=== PATIENT | female | born 1955 | race African-American/Black ===

== ENCOUNTER 2023-08-05 00:17 | Emergency (ER) | payer OTHER, SELFPAY ==
[2023-08-05 00:22] VITALS: BP 172/97; PULSE 95; RESP 18; TEMP 37.1; O2SAT 99; BMI 30.7
[2023-08-05 00:52] LABS: MANUAL DIFF FLAG NO
[2023-08-05 00:53] LABS: Basophils Percent Auto 0.4 % (0-2); Eosinophils Absolute Auto 0.2 X10*3/uL (0.0-0.4); Eosinophils Percent Auto 2.6 % (0-4); Hematocrit 36.3 % (37.0-47.0); Hemoglobin 12.4 g/dl (12.0-16.0); Imm Gran Abs Auto 0.02 X10*3/uL (0.00-0.03); Imm Gran Pct Auto 0.3 % (0.0-0.4); Lymphocytes Percent Auto 29.6 % (20-40); Mean Corpuscular HGB Conc 34.2 g/dl (31.0-35.0); Mean Platelet Volume 9.3 fL (9.4-12.3); Monocytes Absolute Auto 0.4 X10*3/uL (0.1-1.2); Monocytes Percent Auto 5.4 % (2-11); Neutrophils Absolute Auto 4.2 x10*3/uL (2.0-8.3); Neutrophils Percent Auto 61.7 % (45-73); Platelet Count 290 X10*3/uL (160-400); Red Blood Count 4.27 X10*6/uL (4.20-5.50); White Blood Count 6.8 X10*3/uL (4.8-10.8)
[2023-08-05 01:05] LABS: Alanine Aminotransferase 25 U/L (0-31); Albumin Level 4.7 g/dL (3.5-5.0); Alkaline Phosphatase 67 U/L (39-117); Anion Gap 15 (12-20); Aspartate Amino Transferase 26 U/L (5-31); Bilirubin Total 0.3 mg/dL (0.0-1.0); Blood Urea Nitrogen 10 mg/dL (9-16); Calcium 9.9 mg/dL (8.4-10.2); Carbon Dioxide 25 mmol/L (22-29); Chloride 106 mmol/L (96-108); Creatinine Clr Calc Pharmacy 56.4; Estimated Glomerular Filt Rate 53; Glucose Random 156 mg/dL (60-115); Potassium 4.3 mmol/L (3.3-5.1); Sodium 142 mmol/L (135-145); Total Protein 7.8 g/dL (6.5-8.0)
[2023-08-05 01:12] LABS: Troponin-I High Sensitivity < 2.7 ng/L (<3.5-17.0)
[2023-08-05 01:31] LABS: Influenza A PCR NEGATIVE (Negative); Influenza B PCR NEGATIVE (Negative); Resp Syncy Virus RNA Qual PCR NEGATIVE (Negative); SARS COV2 PCR INHOUSE NEGATIVE (Negative)
--- NOTE | 2023-08-05 01:31 | ED.CHESTPAIN ---
HPI - Chest Pain General Chief Complaint: Chest Pain Stated Complaint: Chest tightness/Sob/Back pain Time Seen by Provider: 08/05/23 01:20 Source: patient and family (Son) Mode of arrival: ambulatory Limitations: no limitations History of Present Illness HPI narrative: 68-year-old female came in for evaluation of chest tightness and upper back pain for 5 days, pain is on and off associated with dyspnea, no chest trauma, no clear aggravating or relieving factor of the chest pain, no fever, no chills, no coughing, no recent travel, no lower extremities swelling or tenderness. Related Data Allergies Allergy/AdvReac Type Severity Reaction Status Date / Time codeine Allergy Itching Verified 08/05/23 00:39 morphine Allergy Itching Verified 08/05/23 00:39 trazodone Allergy Hallucinati Verified 08/05/23 00:39 ons Review of Systems Review of Systems: All other systems are reviewed and are negative Constitutional: Reports as per HPI and Reports no additional constitutional complaints Eyes: Reports as per HPI and Reports no additional eye complaints Reports system reviewed and no additional complaints, except as documented Cardiovascular: Reports as per HPI and Reports no additional cardiovascular complaints Respiratory: Reports as per HPI and Reports no additional respiratory complaints Gastrointestinal: Reports as per HPI and Reports no additional gastrointestinal complaints Genitourinary: Reports no additional female genitourinary complaints Musculoskeletal: Reports no additional musculoskeletal complaints Skin/Breast: Reports system reviewed and no additional complaints, except as docu Psychiatric: Reports no additional psychiatric complaints Endocrine: Reports no additional endocrine complaints Hematologic/Lymphatic: Reports no additional hematologic/lymphatic complaints Allergic/Immunologic: Reports no additional allergic/immunologic complaints Reports system reviewed and no additional complaints, except as documented and Reports Abnormal speech present [facility] Past Medical History [facility] Narrative: Asthma. Hypertension. Diabetes. Onset Date is defined in the Problem List Problems that require an onset date and time if occurred within 24 hrs of arrival to the ED Aortic Dissection and Rupture; Neurologic impairment; Cardiopulmonary Arrest; Endotracheal Intubation; Insertion or Replacement of Mechanical Circulatory Assist Device Social History Social History Advance Directives: No Advance Directives Information Provided: Yes Physical Exam Vital Signs: Vital Signs: Last Vital Signs Temp 98.7 F 08/05/23 00:22 Pulse 95 08/05/23 00:22 Resp 18 08/05/23 00:22 BP 172/97 H 08/05/23 00:22 Pulse Ox 99 08/05/23 00:22 O2 Del Method Room Air 08/05/23 00:22 BMI result Body Mass Index 30.7 Vital signs have been reviewed and appear to be correct. Blood pressure elevated. Heart rate normal. Respiratory rate normal. Temperature normal. Oxygen saturation normal. Appearance: Alert. Oriented X3. No acute distress. Head: Normal external exam. Normocephalic. Atraumatic. No Mcnally signs noted. No raccoon eyes noted Eyes: PERRLA. EOMI. Conjunctiva and sclera normal. Eyelids normal. ENT: TM's Normal. Pharynx normal. Uvula midline. Moist mucous membranes. No trismus noted. No drooling noted. No muffled voice noted. Neck: Normal inspection. Neck supple. FROM. No adenopathy. Thyroid Normal. No meningeal signs. No neck mass noted. CVS: Normal heart rate and rhythm. Heart sound normal. No murmurs noted. Pulses normal throughout. Respiratory: No respiratory distress. Painless inspiration. Breath sounds normal. No wheezes/rales/rhonchi noted. Reproducible tenderness over the sternum, no step-off, no deformity. No accessory muscle usage noted or decreased air movement noted. Abdomen: Soft and nontender. Bowel sounds normal in all 4 quadrants. No distention noted. No organomegaly noted. No visible injury noted. Back: No CVA tenderness. Full range of motion noted. Skin: Skin warm and dry. Normal skin color. Normal skin turgor. No rashes/lesions/lacerations noted. Extremities: No lower extremity edema. Extremities exhibit normal range of motion. Extremities nontender. Neuro: Oriented X 3. Cranial nerve exam: II-XII are grossly intact No motor deficit. No sensory deficit. Reflexes normal. Course Reevaluation(s) Reevaluation #1: Presented with 5 days history of chest pain and shortness of breath will check repeat troponin and D-dimer, signed out to Dr. Albarran. Time: 01:43 Medical Decision Making Differential Diagnosis Differential Diagnoses: The differential diagnosis associated with the presentation includes (Pneumonia, pneumothorax, pulmonary embolism, ACS, costochondritis, electrolyte abnormality, severe anemia.) Admission/Observation Consideration of admission/observation: Escalation of care including admission/observation considered Lab Data MDM Lab Attestation statement: I reviewed the patient's lab results. 08/05/23 00:48 08/05/23 00:48 Labs: Lab Results 08/05/23 08/05/23 Range/Units 00:48 00:58 WBC 6.8 (4.8-10.8) X10*3/uL RBC 4.27 (4.20-5.50) X10*6/uL Hgb 12.4 (12.0-16.0) g/dl Hct 36.3 L (37.0-47.0) % MCV 85.0 (80.0-98.0) fL MCH 29.0 (27.0-33.0) pg MCHC 34.2 (31.0-35.0) g/dl RDW 13.0 (11.0-16.0) % Plt Count 290 (160-400) X10*3/uL MPV 9.3 L (9.4-12.3) fL Immature Gran % (Auto) 0.3 (0.0-0.4) % Neut % (Auto) 61.7 (45-73) % Lymph % (Auto) 29.6 (20-40) % [place] % (Auto) 5.4 (2-11) % Eos % (Auto) 2.6 (0-4) % Baso % (Auto) 0.4 (0-2) % Lymph # (Auto) 2.0 (1.2-4.9) X10*3/uL [place] # (Auto) 0.4 (0.1-1.2) X10*3/uL Eos # (Auto) 0.2 (0.0-0.4) X10*3/uL Baso # (Auto) 0.0 (0.0-0.2) X10*3/uL Abs Immat Gran (auto) 0.02 (0.00-0.03) X10*3/uL Absolute Neuts (auto) 4.2 (2.0-8.3) x10*3/uL Absolute Nucleated RBC 0.000 (0.0-0.012) X10*3/uL Nucleated RBC % (auto) 0.0 (0.0-0.2) /100WBC Sodium 142 (135-145) mmol/L Potassium 4.3 (3.3-5.1) mmol/L Chloride 106 (96-108) mmol/L Carbon Dioxide 25 (22-29) mmol/L Anion Gap 15 (12-20) BUN 10 (9-16) mg/dL Creatinine 1.04 (0.5-1.4) mg/dL Estim Creat Clear Calc 56.4 Estimated GFR 53 Random Glucose 156 H (60-115) mg/dL Calcium 9.9 (8.4-10.2) mg/dL Total Bilirubin 0.3 (0.0-1.0) mg/dL AST 26 (5-31) U/L ALT 25 (0-31) U/L Alkaline Phosphatase 67 (39-117) U/L Troponin I High Sens < 2.7 (<3.5-17.0) ng/L Total Protein 7.8 (6.5-8.0) g/dL Albumin 4.7 (3.5-5.0) g/dL Urine Color Yellow Urine Appearance Clear Urine pH 6.5 (5.0-9.0) Ur Specific [place] <= 1.005 (1.005-1.025) Urine Protein Negative (Neg-Trace) mg/dL Urine Glucose (UA) Negative (Negative) mg/dL Urine Ketones Negative (Negative) mg/dL Urine Blood Negative (Negative) Urine Nitrite Negative (Negative) Ur Leukocyte Esterase Negative (Negative) Urine RBC 0-2 (0-2) /HPF Urine WBC 0-5 (0-5) /HPF Ur Squamous Epith Cells 0-2 (0-2) /HPF Urine Bacteria None Seen (None Seen) Hyaline Casts 0-2 (0-2) /LPF Influenza Type A (PCR) NEGATIVE (Negative) Influenza Type B (PCR) NEGATIVE (Negative) RSV RNA Qual (PCR) NEGATIVE (Negative) SARS-CoV-2 RNA (RT-PCR) NEGATIVE (Negative) Independent Interpretation I performed an independent interpretation of an: EKG (Normal sinus rhythm at 95 beats per minute, normal axis deviation, normal intervals, no ST-T changes.) Discharge Plan Discharge Clinical Impression: Atypical chest pain Patient Disposition: Still a Patient Instructions: Chest Pain (ED)
[2023-08-05 02:33] LABS: D Dimer High Sensitivity < 150 NG/ML; Troponin-I High Sensitivity < 2.7 ng/L (<3.5-17.0)
== END 2023-08-05 03:24 | disposition home or self-care (01) ==
PROVIDERS: Emergency Provider Emergency Medicine; PCP Internal Medicine
DX: R07.89 Other chest pain (principal); R06.02 Shortness of breath; E11.9 Type 2 diabetes mellitus without complications; I10 Essential (primary) hypertension; Z20.822 Contact with and (suspected) exposure to COVID-19; Z20.828 Contact with and (suspected) exposure to other viral communicable diseases
CPT/HCPCS: 0241U; 36415; 71046; 80053; 81001; 84484; 85025; 85379; 93005; 99283; 99284

== ENCOUNTER → 2023-08-05 00:27 | Outpatient (BNV) | payer OTHER, SELFPAY | PROVIDERS: Emergency Provider Emergency Medicine; PCP Internal Medicine; Visit Provider Internal Medicine Cardiovascular Disease | DX: R07.9 Chest pain, unspecified (principal) | CPT/HCPCS: 93010 ==

== ENCOUNTER 2023-12-21 23:02 | Inpatient (IN) | payer MEDICARE, OTHER, SELFPAY ==
--- NOTE | ~2023-12-21 | US_ITS ---
EXAMINATION: US RETROPERITONEAL LIMITED (RENAL ONLY) CLINICAL INFORMATION: Pyelonephritis, question renal abscess. COMPARISON: CT abdomen and pelvis without contrast 12/22/2023. TECHNIQUE: Real-time imaging of the kidneys. FINDINGS: RIGHT KIDNEY: 12.5 x 5.1 x 6.7 cm (SAG x AP x TRV). The kidney is normal in size, contour, and echogenicity. Renal cortical thickness is normal. No calculi or focal parenchymal lesions. No hydronephrosis. LEFT KIDNEY: 13.0 x 6.4 x 5.4 cm (SAG x AP x TRV). The kidney is normal in size, contour, and echogenicity. Renal cortical thickness is normal. No calculi or focal parenchymal lesions. No hydronephrosis. Additional findings: The liver is enlarged and demonstrates increased echogenicity consistent with hepatic steatosis similar to the prior CT. US/US renal BI IMPRESSION: 1. Normal-appearing kidneys. 2. Enlarged fatty liver.
--- NOTE | ~2023-12-21 | CT_ITS ---
EXAMINATION: CT ABDOMEN AND PELVIS WITHOUT CONTRAST CLINICAL INFORMATION: Left flank pain. COMPARISON: None available. TECHNIQUE: Multidetector volumetric imaging was performed from the superior aspect of the liver through the pubic symphysis. Sagittal and coronal reformatted images were obtained on the technologist's workstation. This CT examination was performed using dose optimization techniques as appropriate, variously including the following: *Automated exposure control *Adjustment of mA and/or kV according to patient size (this includes techniques or standardized protocols for targeted exams where dose is matched to indication/reason for exam; i.e. extremities or head) *Use of iterative reconstruction technique DLP: 617 mGy-cm FINDINGS: LUNG BASES: There is scarring at the right lung base. LIVER, GALLBLADDER, AND BILIARY TREE: The liver is of mild diminished attenuation. No focal liver lesions are seen. There is no intrahepatic biliary duct dilatation. The gallbladder is unremarkable with no evidence of radiopaque gallstones, gallbladder wall thickening, or obvious pericholecystic inflammatory changes. PANCREAS: Unremarkable. SPLEEN: Unremarkable. ADRENAL GLANDS: Unremarkable. KIDNEYS AND URETERS: The kidneys are normal in size, shape, and attenuation. No hydronephrosis, hydroureter, or calculi seen. No perinephric stranding. BLADDER: Unremarkable. GASTROINTESTINAL TRACT: There are diverticula of the descending and sigmoid colon without diverticulitis. The appendix is visualized and is within normal limits. ABDOMINAL WALL: No significant hernia is appreciated. LYMPH NODES: Normal. VASCULAR: Unremarkable. PELVIC VISCERA: Unremarkable. OSSEOUS STRUCTURES: There is diffuse thoracolumbar disc degenerative change with grade [address]/CT abdomen pelvis wo IV con IMPRESSION: 1. No evidence of nephrolithiasis or hydronephrosis. 2. Diverticulosis without diverticulitis. 3. Degenerative changes of the thoracolumbar spine. Fleischner guidelines were followed.
--- NOTE | ~2023-12-21 | XR_ITS ---
EXAMINATION: XR CHEST CLINICAL INFORMATION: Hypoxia and leukocytosis COMPARISON: August 2023 TECHNIQUE: Frontal view of the chest was obtained. FINDINGS: Opacity left upper lobe probably a summation of bone and vascular shadows, cannot rule out underlying infiltrates or lung nodule. Lungs otherwise are clear. Costophrenic angles are sharp. There is no pneumothorax. XR/XR chest 1V IMPRESSION: Opacity left upper lobe probably a summation of bone and vascular shadows, cannot rule out underlying infiltrates or lung nodule. Consider correlation with follow-up PA and lateral views.
--- NOTE | ~2023-12-21 | US_ITS ---
EXAMINATION: US TRIPLEX UPPER EXTREMITY, LEFT CLINICAL INFORMATION: Swelling evaluate for DVT COMPARISON: None available. TECHNIQUE: Color-flow triplex imaging with spectral analysis and compression Doppler was performed on the left upper extremity. FINDINGS: The left internal jugular, subclavian, and axillary veins are patent and free of thrombus. The imaged segment of the left brachiocephalic vein is patent. Spectral doppler waveforms are normal. The brachial, basilic, cephalic, and radial veins are patient and compressible. Ulnar veins not well evaluated. US/US venous duplex UE LT IMPRESSION: 1. No evidence of deep venous thrombosis involving the left upper extremity. 2. Ulnar veins not well evaluated.
--- NOTE | ~2023-12-21 | XR_ITS ---
EXAMINATION: XR HAND/WRIST, LEFT CLINICAL INFORMATION: Pain swelling COMPARISON: None TECHNIQUE: PA, lateral, and oblique views of the left hand and wrist. FINDINGS: Severe osteoarthritis of the first carpometacarpal joint manifested by marked joint space narrowing prominent marginal osteophytes subchondral cystic change and sclerosis. Mild osteoarthritis of the triscaphoid joint with marginal osteophytes. There is chondrocalcinosis at the ulnocarpal articulation. There is minimal cystic change at the base of the ulnar styloid. XR/XR hand wrist LT IMPRESSION: 1. Osteoarthritis of the left wrist 2. Chondrocalcinosis.
--- NOTE | ~2023-12-21 | US_ITS ---
EXAMINATION: US ABDOMEN LIMITED (GALLBLADDER) CLINICAL INFORMATION: Check gallbladder, question infection. COMPARISON: CT abdomen and pelvis 12/27/2023. TECHNIQUE: Real-time imaging of the right upper quadrant abdominal viscera. FINDINGS: GALLBLADDER: There is echogenic bile. The gallbladder is physiologically distended without evidence of stones, polyps, wall thickening or pericholecystic fluid. US/US abdomen limited IMPRESSION: There is layering echogenic bile. No cholelithiasis or cholecystitis is seen.
--- NOTE | ~2023-12-21 | NM_ITS ---
EXAMINATION: NM RADIONUCLIDE WHITE BLOOD CELL STUDY CLINICAL INFORMATION: Elevated ESR and WBC count. Unknown source of infection. COMPARISON: Chest radiograph done on 12/27/[address] of the abdomen and pelvis also done on 12/27/2023. TECHNIQUE: Multiple gamma scintillation camera images of the whole body were performed 2 hours following the intravenous administration of 15 mCi Tc-99m Ceretec labeled autologous white cells. Additional images of the chest and abdomen were obtained to demonstrate physiological white blood cell tagging. FINDINGS: Physiologic radiotracer distribution is present throughout the entire body. Slightly lobulated liver. Note is however made of visualization of the gallbladder which could be physiologic. Clinical correlation and follow-up ultrasound with appropriate may be considered for further clarification. NM/NM white blood scan IMPRESSION: No definite source of infection. Visualization of the gallbladder could be physiologic. Clinical correlation and follow-up targeted gallbladder ultrasound may be considered for further clarification if appropriate.
--- NOTE | ~2023-12-21 | CT_ITS ---
EXAMINATION: CT ANGIOGRAM OF THE CHEST WITH AND WITHOUT CONTRAST (CT PULMONARY ANGIOGRAM FOR PE) CLINICAL INFORMATION: Reason for Exam tachycardia, elevated D-dimer(835) COMPARISON: Chest x-ray 12/27/2023 TECHNIQUE: Prior to contrast administration, noncontrast localization images were obtained. Subsequently, multidetector volumetric imaging was performed from the thoracic inlet to below the diaphragms following the administration of 65 mL Omnipaque 350 intravenous contrast. No contrast reaction reported Sagittal, coronal, and MIP oblique sagittal reformatted images were obtained on the CT workstation, uploaded to PACS, and reviewed. This CT examination was performed using dose optimization techniques as appropriate, variously including the following: *Automated exposure control *Adjustment of mA and/or kV according to patient size (this includes techniques or standardized protocols for targeted exams where dose is matched to indication/reason for exam; i.e. extremities or head) *Use of iterative reconstruction technique Total exam dose-length product 522 mGy-cm FINDINGS: QUALITY OF STUDY/CONTRAST BOLUS: Satisfactory. PULMONARY ARTERIES: No filling defects are seen in the main, lobar, or segmental pulmonary arteries to suggest the presence of pulmonary emboli. THORACIC AORTA: No aneurysm or dissection. LUNG: Limited detailed evaluation in some regions due to motion artifact. There is faint groundglass opacity in the right middle lobe, predominantly medially, suspicious for an infectious/inflammatory etiology. PLEURA: No pleural effusion or pneumothorax. MEDIASTINUM: Thyroid gland appears enlarged. Hypoattenuating 0.7 cm right thyroid lobe nodule noted. There are subcentimeter mediastinal lymph nodes within the range of normal variation. Cardiac size is within normal limits; no pericardial effusion. No evidence of septal bowing or right heart strain. CORONARY ARTERY CALCIFICATION: None visualized on this study. CHEST WALL/AXILLA: No axillary or internal mammary lymphadenopathy. OSSEOUS STRUCTURES: Multilevel degenerative changes in the spine. UPPER ABDOMEN: Unremarkable. No reflux of contrast into the hepatic veins to suggest elevated right heart pressures. CT/CT angio chest PE protocol IMPRESSION: 1. No pulmonary embolus identified. 2. Faint groundglass opacity in the right middle lobe, suspicious for an infectious/inflammatory etiology. 3. Enlarged thyroid gland with 0.7 cm right thyroid lobe nodule. Based on the recommendations of the ACR Incidental Thyroid Findings Committee (JACR 2014; 12(2):143-50), no imaging followup is recommended for incidental thyroid nodules with largest axial dimension less than 1.5 cm in patients greater than 35 years of age in the absence of high risk imaging features, symptomatic thyroid disease, or increased risk for thyroid cancer. VTE: negative.
--- NOTE | ~2023-12-21 | CT_ITS ---
EXAMINATION: CT HEAD WITHOUT CONTRAST CLINICAL INFORMATION: Headaches. COMPARISON: None. TECHNIQUE: Contiguous axial imaging was performed from the skullbase to vertex without intravenous administration of contrast. This CT examination was performed using dose optimization techniques as appropriate, variously including the following: *Automated exposure control *Adjustment of mA and/or kV according to patient size (this includes techniques or standardized protocols for targeted exams where dose is matched to indication/reason for exam; i.e. extremities or head) *Use of iterative reconstruction technique DLP: 753 mGy-cm. FINDINGS: There is no evidence of acute intracranial hemorrhage or territorial infarction. No abnormal mass effect or midline shift is seen. No extra-axial fluid collections are identified. Mild generalized brain parenchymal volume loss and ex vacuo prominence of the ventricles noted. There is an incidental 6.7 x 5.8 x 6.8 mm low-attenuation focus in the right lateral aspect of the anterior pituitary lobe. The pituitary stalk is slightly deviated to the left of midline as well. Mild chronic white matter microangiopathic changes are visible. There is a 2 cm low-attenuation area in the left frontal christianson radiata nonspecific. The osseous structures and soft tissues are normal. The mastoid air cells and visualized portions of the paranasal sinuses are well aerated. CT/CT head/brain wo IV con IMPRESSION: No acute intracranial hemorrhage or territorial infarction. Patchy areas of low-density change in the cerebral white matter which may be due to chronic microangiopathy. The possibility of a focal acute ischemic process cannot be ruled out on the basis of this study. Incidental 6.7 x 6.8 mm low-density lesion in the right lateral aspect of the anterior pituitary lobe which may represent a microadenoma.
--- NOTE | ~2023-12-21 | CT_ITS ---
EXAMINATION: CT ABDOMEN AND PELVIS WITH CONTRAST CLINICAL INFORMATION: Urinary tract infection worsening white blood cell count tachycardia. COMPARISON: CT abdomen and pelvis 12/22/2023 TECHNIQUE: Multidetector volumetric images were obtained from the superior aspect of the liver through the pubic symphysis following administration 85 mL of Omnipaque 350 intravenous contrast. Sagittal and coronal reformatted images were obtained on the technologist's workstation. Oral contrast: No This CT examination was performed using dose optimization techniques as appropriate, variously including the following: *Automated exposure control *Adjustment of mA and/or kV according to patient size (this includes techniques or standardized protocols for targeted exams where dose is matched to indication/reason for exam; i.e. extremities or head) *Use of iterative reconstruction technique DLP: 699 mGy-cm FINDINGS: LUNG BASES: The visualized lung bases are unremarkable. LIVER, GALLBLADDER, AND BILIARY TREE: The liver is normal in size, shape, and attenuation. No focal hepatic lesion or biliary ductal dilatation is present. The gallbladder is unremarkable with no evidence of radiopaque gallstones, gallbladder wall thickening, or obvious pericholecystic inflammatory changes. PANCREAS: Unremarkable. SPLEEN: Unremarkable. ADRENAL GLANDS: Unremarkable. KIDNEYS AND URETERS: 3 simple cysts in the left kidney largest measuring 14 mm period no follow-up necessary. Parenchymal otherwise yohana No hydronephrosis. No hydroureter. No renal calculi BLADDER: Unremarkable. GASTROINTESTINAL TRACT: Small bowel normal. Large bowel scattered diverticula in the sigmoid colon no diverticulitis. Scattered diverticula in the distal The appendix is unremarkable. Stomach normal ABDOMINAL WALL: No significant hernia is appreciated. LYMPH NODES: Normal. VASCULAR: There is calcification of the distal aorta compatible with mild to moderate calcific atherosclerotic disease. PELVIC VISCERA: Unremarkable Uterus not clearly identified. Suspect prior surgery versus age-related change. No masses. OSSEOUS STRUCTURES: Multiple level spondylosis of lumbar sacral spine severe degenerative disc changes at L5-S1 and grade 1 degenerative spondylolisthesis at L3-L4 unchanged. CT/CT abdomen pelvis w IV con IMPRESSION: No acute abnormality. No change compared with 12/22/2023. No urinary tract stone. No definitive CT findings for urinary tract infection Diverticulosis without diverticulitis. Fleischner guidelines were followed.
--- NOTE | ~2023-12-21 | XR_ITS ---
EXAMINATION: XR CHEST CLINICAL INFORMATION: Pneumonia COMPARISON: None available. TECHNIQUE: 2 views of the chest were obtained. FINDINGS: The heart size is normal. There is no evidence of CHF. Some mild bibasilar atelectasis is seen. No gross consolidation, lung masses or pleural effusions are seen. Degenerative changes are present in the spine. XR/XR chest 2V IMPRESSION: Mild bibasilar atelectasis. No evidence of pneumonia.
[2023-12-21 23:18] VITALS: BP 128/79; PULSE 116; RESP 20; TEMP 36.6; O2SAT 98
[2023-12-21 23:31] LABS: MANUAL DIFF FLAG NO
[2023-12-21 23:33] LABS: Basophils Absolute Auto 0.1 X10*3/uL (0.0-0.2); Basophils Percent Auto 0.5 % (0-2); Eosinophils Percent Auto 0.1 % (0-4); Hematocrit 35.4 % (37.0-47.0); Hemoglobin 12.1 g/dl (12.0-16.0); Imm Gran Abs Auto 0.12 X10*3/uL (0.00-0.03); Imm Gran Pct Auto 0.7 % (0.0-0.4); Lymphocytes Absolute Auto 1.1 X10*3/uL (1.2-4.9); Lymphocytes Percent Auto 6.7 % (20-40); Mean Corpuscular HGB Conc 34.2 g/dl (31.0-35.0); Mean Corpuscular Hemoglobin 29.1 pg (27.0-33.0); Mean Corpuscular Volume 85.1 fL (80.0-98.0); Mean Platelet Volume 9.8 fL (9.4-12.3); Monocytes Absolute Auto 1.3 X10*3/uL (0.1-1.2); Monocytes Percent Auto 8.2 % (2-11); Neutrophils Absolute Auto 13.8 x10*3/uL (2.0-8.3); Neutrophils Percent Auto 83.8 % (45-73); Platelet Count 249 X10*3/uL (160-400); Red Blood Count 4.16 X10*6/uL (4.20-5.50); Red Cell Distribution Width 14.1 % (11.0-16.0); White Blood Count 16.4 X10*3/uL (4.8-10.8)
[2023-12-21 23:34] LABS: Appearance Urine Turbid; Color Urine Dark Yellow; Glucose Urine UA Negative (Negative); Leukocyte Esterase Urine Large (3+) (Negative); Nitrite Urine Negative (Negative); PH 5.5 (5.0-9.0); Urine Blood Moderate (2+) (Negative); Urine Ketones Trace mg/dL (Negative); Urine Protein 100 (2+) mg/dL (Neg-Trace)
[2023-12-21 23:49] LABS: Bacteria Urine 4+ (None Seen); Squamous Epithelial Cell Urine >20 /HPF (0-2); WBC Urine >50 /HPF (0-5)
[2023-12-22] VITALS (7 sets, daily range): BP systolic 118–152; BP diastolic 61–87; PULSE 101–130; RESP 16–22; TEMP 36.7–37.5; O2SAT 94–101
--- NOTE | 2023-12-22 00:04 | ED.GENADULT ---
HPI - General Adult General Chief complaint: Abdominal Pain Stated complaint: UTI, Chills, Abdominal Pain Time Seen by Provider: 12/21/23 23:34 Source: patient and family Mode of arrival: ambulatory Limitations: no limitations History of Present Illness HPI narrative: Patient's history of diabetes comes here with dysuria frequency flank pain nausea for last 4 days patient denies any history of kidney stone usually get urinary tract infection once or twice a year but this time patient feels is worse than previous times with increased chills or appetite and nausea no fever but had chills with does have history of substance abuse no IVDA Related Data Previous Rx's ?Medication ?Instructions ?Recorded tramadol 50 mg tablet 50 mg PO Q6H PRN pain #20 tabs 08/05/23 Allergies Allergy/AdvReac Type Severity Reaction Status Date / Time codeine Allergy Itching Verified 12/21/23 23:20 morphine Allergy Itching Verified 12/21/23 23:20 trazodone Allergy Hallucinati Verified 12/21/23 23:20 ons Review of Systems Review of Systems: Yes all other systems are reviewed and are negative [facility] Past Medical History Medical History Mood disorder Hypertension Non-insulin dependent type 2 diabetes mellitus Mixed hyperlipidemia Social History Social History Smoked in Last 30 Days: No Use of substances other than those prescribed or required for medical reasons: No Advance Directives: No Advance Directives Information Provided: Yes Do you have a plan to hurt others: No Plan Physical Exam ED Vital Signs: Vital Signs - 24 hr 12/21/23 23:18 12/22/23 01:33 Temperature 97.8 F Pulse Rate 116 H 101 H Respiratory Rate 20 Blood Pressure 128/79 118/61 Pulse Oximetry 98 101 H Oxygen Delivery Method Room Air Oxygen Flow Rate 98 BMI result Body Mass Index 30.0 Appearance: Alert. Oriented X3. No acute distress. Eyes: No pallor or icterus ENT: Pharynx normal. Oral Mucosa moist Neck: Normal inspection. Neck supple. CVS: Normal heart rate and rhythm. Pulses normal. Respiratory: No respiratory distress. Equal air entry bilateral, no wheezing/rales/rhonchi Abdomen: Soft and mild discomfort left lower no rebound tenderness or guarding Bowel sounds are present, no mass palpable, no CVA tenderness Skin: Skin warm and dry. Normal skin color. Normal skin turgor. Extremities: No lower extremity edema. No calf tenderness Neuro: Oriented X 3. No motor deficit. Medications Administered Generic Name Dose Route Start Last Admin Trade Name Freveronica PRN Reason Stop Dose Admin Enoxaparin Sodium 40 mg 12/22/23 03:00 12/22/23 03:15 Enoxaparin Sodium 40 Mg/0.4 Ml Syringe SUBCUT 40 mg 0300 [facility] Administration Insulin Human Lispro 0 unit 12/22/23 07:30 12/22/23 07:19 Insulin Lispro 100 Unit/Ml 3 Ml Vial SUBCUT 2 unit QIDACHS [facility] Administration Protocol Discontinued Medications Generic Name Dose Route Start Last Admin Trade Name Freq PRN Reason Stop Dose Admin Acetaminophen 975 mg 12/22/23 02:40 12/22/23 02:51 Acetaminophen 325 Mg Tablet PO 12/22/23 02:41 975 mg ONCE ONE Administration Sodium Chloride 1,000 mls @ 999 mls/hr 12/22/23 00:02 12/22/23 01:53 Ns IV 12/22/23 01:02 Infused .Q1H1M ONE Infusion Ceftriaxone Sodium 1 gm/ 50 mls @ 100 mls/hr 12/22/23 00:02 12/22/23 01:54 Sodium Chloride IV 12/22/23 00:31 Infused ONCE ONE Infusion Sodium Chloride 1,000 mls @ 999 mls/hr 12/22/23 01:34 12/22/23 05:02 Ns IV 12/22/23 02:34 Infused .Q1H1M ONE Infusion Lidocaine 1 patch 12/22/23 05:44 12/22/23 05:55 Lidocaine 4 % Patch Adh..Patch TRANSDERMA 12/22/23 05:45 1 patch ONCE ONE Administration Protocol Ondansetron HCl 4 mg 12/22/23 00:02 12/22/23 00:57 Ondansetron Hcl 4 Mg/2 Ml Vial IVPUSH 12/22/23 00:03 4 mg ONCE ONE Administration Zolpidem Tartrate 5 mg 12/22/23 02:40 12/22/23 02:51 Zolpidem Tartrate 5 Mg Tablet PO 12/22/23 02:41 5 mg ONCE ONE Administration Medical Decision Making Medical Decision Making MDM Narrative: Patient's Gram-negative bacteremia etiology not very clear has UTI but not severely septic, admit patient for IV antibiotic pending final culture Differential Diagnosis Differential Diagnoses: The differential diagnosis associated with the presentation includes Admission/Observation Consideration of admission/observation: Escalation of care including admission/observation considered Consult Healthcare Provider Management of the patient was discussed with: Hospitalist Lab Data [facility] Lab Attestation statement: I reviewed the patient's lab results. 12/22/23 04:51 12/22/23 04:51 Labs: Lab Results 12/21/23 12/22/23 Range/Units 23:25 00:49 WBC 16.4 H (4.8-10.8) X10*3/uL RBC 4.16 L (4.20-5.50) X10*6/uL Hgb 12.1 (12.0-16.0) g/dl Hct 35.4 L (37.0-47.0) % MCV 85.1 (80.0-98.0) fL MCH 29.1 (27.0-33.0) pg MCHC 34.2 (31.0-35.0) g/dl RDW 14.1 (11.0-16.0) % Plt Count 249 (160-400) X10*3/uL MPV 9.8 (9.4-12.3) fL Immature Gran % (Auto) 0.7 H (0.0-0.4) % Neut % (Auto) 83.8 H (45-73) % Lymph % (Auto) 6.7 L (20-40) % [place] % (Auto) 8.2 (2-11) % Eos % (Auto) 0.1 (0-4) % Baso % (Auto) 0.5 (0-2) % Lymph # (Auto) 1.1 L (1.2-4.9) X10*3/uL [place] # (Auto) 1.3 H (0.1-1.2) X10*3/uL Eos # (Auto) 0.0 (0.0-0.4) X10*3/uL Baso # (Auto) 0.1 (0.0-0.2) X10*3/uL Abs Immat Gran (auto) 0.12 H (0.00-0.03) X10*3/uL Absolute Neuts (auto) 13.8 H (2.0-8.3) x10*3/uL Absolute Nucleated RBC 0.000 (0.0-0.012) X10*3/uL Nucleated RBC % (auto) 0.0 (0.0-0.2) /100WBC Sodium 136 (135-145) mmol/L Potassium 4.0 (3.3-5.1) mmol/L Chloride 100 (96-108) mmol/L Carbon Dioxide 20 L (22-29) mmol/L Anion Gap 20 (12-20) BUN 36 H (9-16) mg/dL Creatinine 1.88 H (0.5-1.4) mg/dL Estim Creat Clear Calc 30.9 Estimated GFR 27 Random Glucose 256 H (60-115) mg/dL Lactic Acid 1.5 (0.5-2.0) mmol/L Calcium 10.2 (8.4-10.2) mg/dL Total Bilirubin 0.8 (0.0-1.0) mg/dL AST 25 (5-31) U/L ALT 19 (0-31) U/L Alkaline Phosphatase 124 H (39-117) U/L Total Protein 8.3 H (6.5-8.0) g/dL Albumin 4.2 (3.5-5.0) g/dL Lipase 26 (8-78) U/L Discharge Plan Discharge Clinical Impression: Sepsis due to gram-negative UTI, UTI (urinary tract infection) Patient Disposition: Admitted As Inpatient
[2023-12-22] MEDS: 0.9 % Sodium Chloride 1,000 ML 999 ML IV ×2 (00:55→01:53)
[2023-12-22] MEDS: ondansetron HCL 4 MG/2 ML VIAL IVPUSH (00:57)
[2023-12-22] MEDS: cefTRIAXone sodium 1 GM in 0.9 % Sodium Chloride 50 ML IV (00:59)
--- NOTE | 2023-12-22 01:01 | PC.NURSE ---
Iv placed, labs collected and sent, medicated per sep.
[2023-12-22 01:02] LABS: Alanine Aminotransferase 19 U/L (0-31); Albumin Level 4.2 g/dL (3.5-5.0); Alkaline Phosphatase 124 U/L (39-117); Anion Gap 20 (12-20); Aspartate Amino Transferase 25 U/L (5-31); Bilirubin Total 0.8 mg/dL (0.0-1.0); Blood Urea Nitrogen 36 mg/dL (9-16); Calcium 10.2 mg/dL (8.4-10.2); Carbon Dioxide 20 mmol/L (22-29); Chloride 100 mmol/L (96-108); Creatinine Clr Calc Pharmacy 30.9; Estimated Glomerular Filt Rate 27; Glucose Random 256 mg/dL (60-115); Lipase 26 U/L (8-78); Sodium 136 mmol/L (135-145); Total Protein 8.3 g/dL (6.5-8.0)
[2023-12-22 01:10] LABS: Lactic Acid 1.5 mmol/L (0.5-2.0)
--- NOTE | 2023-12-22 02:24 | P.HPHOSP_ITS ---
History of Present Illness Date of Service: 12/22/23 Chief Complaint: Dysuria This is a 68 year old female with pertinent history of non insulin dependent diabetes milletus, hypertension, mixed hyperlipidemia, mood disorder, insomnia who presents to the emergency department for evaluation of dysuria. Patient states her symptoms started 3 days prior to presentation. She has been having increased urinary frequency with dysuria. Also has been having chills with nausea. Admits poor p.o. intake. Patient has associated right lower back pain. No history of UTI in the past. No documented fever, chest discomfort, palpitations, shortness of breath, changes in bowel habits. In the ER, patient was found to be septic and urine concerning for UTI (UA with nitrites positive, greater than 50 WBC, 4+ bacteria). Kidney function found to be elevated with creatinine 1.88 Review of Systems 2 Constitutional: Constitutional: Reports chills, Reports fatigue, Reports poor appetite and Reports weakness Cardiovascular: Cardiovascular: Reports no additional cardiovascular complaints Respiratory: Respiratory: Reports no additional respiratory complaints Gastrointestinal: Gastrointestinal: Reports nausea Genitourinary: Genitourinary: Reports nocturia, Reports flank pain and Reports urinary urgency Neurologic: Reports weakness Endocrine: Endocrine: Reports fatigue [facility] Medical History Mood disorder Hypertension Non-insulin dependent type 2 diabetes mellitus Mixed hyperlipidemia Social History Advance Directives: No Advance Directives Information Provided: Yes Do you have a plan to hurt others: No Plan Meds Allergies Allergy/AdvReac Type Severity Reaction Status Date / Time codeine Allergy Itching Verified 12/21/23 23:20 morphine Allergy Itching Verified 12/21/23 23:20 trazodone Allergy Hallucinati Verified 12/21/23 23:20 ons Active Medications: Current Medications Sodium Chloride (Ns) 1,000 mls @ 999 mls/hr IV .Q1H1M ONE Stop: 12/22/23 02:34 Last Admin: 12/22/23 01:53 Dose: 999 mls/hr Physical Exam 2 Vital Signs and Narrative: Vital Signs: Last Vital Signs Temp 97.8 F 12/21/23 23:18 Pulse 101 H 12/22/23 01:33 Resp 20 12/21/23 23:18 BP 118/61 12/22/23 01:33 Pulse Ox 101 H 12/22/23 01:33 O2 Del Method Room Air 12/21/23 23:18 O2 Flow Rate 98 12/22/23 01:33 BMI result Body Mass Index 30.0 Middle-aged female lying in bed in no distress Neck supple, no JVD Regular rate and rhythm, S1-S2 heard Regular breath sounds bilaterally, no wheezing or crackles appreciated Abdomen with right-sided CVA tenderness present Patient is awake, alert and oriented to self, place, time and person ; no focal motor deficit Psych: Normal mood No pedal edema Results Labs 12/21/23 23:25 12/21/23 23:25 Labs: Laboratory Results - last 24 hr 12/21/23 12/22/23 23:25 00:49 MCV 85.1 MCH 29.1 MCHC 34.2 RDW 14.1 Plt Count 249 MPV 9.8 Immature Gran % (Auto) 0.7 H Neut % (Auto) 83.8 H Lymph % (Auto) 6.[address] [place] % (Auto) 8.2 Eos % (Auto) 0.1 Baso % (Auto) 0.5 Lymph # (Auto) 1.[address] [place] # (Auto) 1.3 H Eos # (Auto) 0.0 Baso # (Auto) 0.1 Abs Immat Gran (auto) 0.12 H Absolute Neuts (auto) 13.8 H Absolute Nucleated RBC 0.000 Nucleated RBC % (auto) 0.0 Anion Gap 20 Estim Creat Clear Calc 30.9 Estimated GFR 27 Random Glucose 256 H Lactic Acid 1.5 Calcium 10.2 Total Bilirubin 0.8 AST 25 ALT 19 Alkaline Phosphatase 124 H Total Protein 8.3 H Albumin 4.2 Lipase 26 Imaging Radiologist's Impressions: Impressions Abdomen/Pelvis CT 12/22/23 00:25 IMPRESSION: 1. No evidence of nephrolithiasis or hydronephrosis. 2. Diverticulosis without diverticulitis. 3. Degenerative changes of the thoracolumbar spine. Fleischner guidelines were followed. Assessment and Plan (1) Sepsis: Status: Acute (2) UTI (urinary tract infection): Status: Acute Plan This is a 68 year old female with pertinent history of non insulin dependent diabetes milletus, hypertension, mixed hyperlipidemia, mood disorder, insomnia who presents to the emergency department for evaluation of dysuria. #. Sepsis due to acute UTI with clinical right-sided pyelonephritis: Resuscitated with IV crystalloids. Lactic acid and blood culture obtained. Initiating empiric IV antibiotics. Follow urine culture #. Acute kidney injury stage I, likely prerenal: Monitor creatinine and urine output with crystalloid resuscitation. Avoid nephrotoxins #. Lpr-jsqceki-pmwvaqndp diabetes mellitus with hyperglycemia: Initiating Accu-Cheks with sliding scale insulin #. Hypertension: Continue home antihypertensives #. Mood disorder: Continue home mood stabilizers Med rec pending DVT prophylaxis: Lovenox Full code Admit as inpatient and will require two night minimum hospital stay for IV antibiotics (as above), which is not possible in a lesser acute setting. Quality Stroke Does the patient have a stroke diagnosis?: No VTE Prior VTE?: No VTE Risk Level:: Medical - moderate - high VTE Device Contraindication: Treatment Not Indicated VTE Drug Contraindication: N/A - Med Ordered
[2023-12-22] MEDS: Zolpidem Tartrate 5 MG TABLET PO (02:51)
[2023-12-22] MEDS: Acetaminophen 325 MG TABLET 975 MG PO (02:51)
[2023-12-22] MEDS: Enoxaparin Sodium 40 MG/0.4 ML SYRINGE SUBCUT (03:15)
[2023-12-22 05:16] LABS: Hematocrit 30.9 % (37.0-47.0); Hemoglobin 10.6 g/dl (12.0-16.0); Mean Corpuscular HGB Conc 34.3 g/dl (31.0-35.0); Mean Corpuscular Hemoglobin 28.8 pg (27.0-33.0); Mean Platelet Volume 10.1 fL (9.4-12.3); Platelet Count 212 X10*3/uL (160-400); Red Blood Count 3.68 X10*6/uL (4.20-5.50); Red Cell Distribution Width 13.9 % (11.0-16.0); White Blood Count 10.5 X10*3/uL (4.8-10.8)
[2023-12-22 05:42] LABS: Anion Gap 19 (12-20); Blood Urea Nitrogen 32 mg/dL (9-16); Carbon Dioxide 17 mmol/L (22-29); Chloride 106 mmol/L (96-108); Potassium 3.8 mmol/L (3.3-5.1); Sodium 138 mmol/L (135-145)
[2023-12-22 05:43] LABS: Calcium 9.1 mg/dL (8.4-10.2); Estimated Glomerular Filt Rate 39; Glucose Random 170 mg/dL (60-115)
[2023-12-22] MEDS: Lidocaine 4 % Patch ADH..PATCH 1 PATCH TRANSDERMA (05:55)
--- NOTE | 2023-12-22 05:56 | PC.NURSE ---
pt repositioned and medicated per mar.
[2023-12-22 06:25] LABS: Band Neutrophils Percent 28 % (3-5); Lymphocytes Absolute Manual 0.1 X10*3/uL (1.2-4.9); Lymphocytes Percent Manual 1 % (20-40); Monocytes Absolute Manual 0.5 X10*3/uL (0.1-1.2); Monocytes Percent Manual 5 % (2-11); Neutrophils Absolute Manual 9.9 X10*3/uL (2.0-8.3); Neutrophils Percent Manual 66 % (45-73)
[2023-12-22 06:26] LABS: Acanthocytes 3+ (>5) /OIF; Burr Cells 3+ (>5) /OIF; Dohle Bodies PRESENT; Ovalocytes 1+ (5-14) /OIF; Platelet Estimate NORMAL (NORMAL); Platelet Morphology Comment NORMAL; RBC Morphology NOTED; Schistocytes 1+ (0-2) /OIF; Toxic Vacuolation PRESENT
[2023-12-22] MEDS: Insulin Lispro 100 UNIT/ML 3 ML VIAL SUBCUT ×4 (07:19→21:13)
[2023-12-22 08:28] LABS: Glucose, Whole Blood 155 mg/dL (60-115)
--- NOTE | 2023-12-22 09:44 | PC.NURSE ---
patient resting quietly in her room, VSS, respirations equal and unlabored, medicated per MAr. patient is alert and oriented x3.
--- NOTE | 2023-12-22 10:07 | PHA.MEDREC ---
Addendum entered by Anny Gilbert 12/22/23 10:16: patient confirmed they are taking quetiapine 400mg once daily at bedtime Addendum entered by Cindy Reed 12/22/23 10:11: Patient prescribed two different dosing's of Quetiapine (100mg and 400mg), patient states they are taking the 400mg tabs twice daily. Original Note: Pharmacy Consult ? Medication Reconciliation Pharmacy has completed the medication reconciliation. Spoke with patient to confirm medications. Per med list patient has not picked up their gabapetin since 07/24, they stated to us they are taking it as needed for pain and still have some.
[2023-12-22] MEDS: Acetaminophen 325 MG TABLET 650 MG PO ×2 (10:56→19:03)
--- NOTE | 2023-12-22 11:07 | PM.EVENT ---
Event Note Date of Service: 12/22/23 Event Note: 68 year old female with pertinent history of non insulin dependent diabetes milletus, hypertension, mixed hyperlipidemia, mood disorder, insomnia who presents to the emergency department for evaluation of dysuria. Complaining of persistent dysuria and back pain, denies fever, no chills On examination awake alert talking in full sentences Abdomen soft, nontender. #. Sepsis due to acute UTI with clinical right-sided pyelonephritis: No fever, [place] [address]-43.5 but noted to have bandemia, normal lactic acid Will follow urine and blood cultures #. Acute kidney injury stage I, likely prerenal: Renal function improving avoid nephrotoxins , was on ibuprofen and valsartan currently on hold, status post 2 L of IV fluids #. Kpy-dcwsmti-ayoizydni diabetes mellitus with hyperglycemia: Metformin on hold, continue diabetic diet and sliding scale insulin, monitor blood sugar closely. #. Hypertension: Resume metoprolol and amlodipine, hold valsartan as above #. Mood disorder: Continue home mood stabilizers DVT prophylaxis: Lovenox Full code Patient will require continued inpatient hospitalization for IV antibiotics (as above), which is not possible in a lesser acute setting. Time Spent With Patient Time: Total time managing care of this patient today ____ minutes.
[2023-12-22 11:21] LABS: Glucose, Whole Blood 193 mg/dL (60-115)
[2023-12-22] MEDS: Metoprolol Tartrate 50 MG TABLET PO ×2 (11:29→21:14)
[2023-12-22] MEDS: clonazePAM 0.5 MG TABLET PO ×2 (11:29→21:14)
[2023-12-22] MEDS: amLODIPine Besylate 5 MG TABLET PO (11:29)
--- NOTE | 2023-12-22 12:54 | MHC.CM.PN ---
PT LIVES ALONE HAS MOW AND HAS OWN RIDE HOME WHEN DCD
[2023-12-22] MEDS: Gabapentin 300 MG CAPSULE PO (17:43)
[2023-12-22 18:13] LABS: Glucose, Whole Blood 212 mg/dL (60-115)
[2023-12-22] MEDS: Baclofen 10 MG TABLET PO (19:04)
[2023-12-22 19:12] LABS: Glucose, Whole Blood 200 mg/dL (60-115)
--- NOTE | 2023-12-22 20:04 | PC.NURSE ---
Assumed care of pt at 1900, pt c/o 05/11 L-sided abdominal pain. Pt also with fever 100.1, medicated with Baclofen and Tylenol as ordered PRN. Discussed with MD as pt was still uncomfortable, will order Tramadol and Benadryl to manage pain. Pt up eating dinner, reports pain is starting to get better.
[2023-12-22 20:48] LABS: Glucose, Whole Blood 265 mg/dL (60-115)
[2023-12-22] MEDS: Atorvastatin Calcium 10 MG TABLET PO (21:14)
[2023-12-22] MEDS: Melatonin 3 MG TABLET 6 MG PO (21:14)
[2023-12-22] MEDS: 0.9 % Sodium Chloride Flush 3 ML SYRINGE IVFLUSH (21:18)
[2023-12-23] VITALS (8 sets, daily range): BP systolic 119–168; BP diastolic 66–80; PULSE 92–116; RESP 16–17; TEMP 36.3–37.8; O2SAT 93–96
[2023-12-23] MEDS: traMADoL HCL 50 MG TABLET PO ×2 (00:21→20:42)
[2023-12-23] MEDS: diphenhydrAMINE HCL 50 MG/ML VIAL IVPUSH (00:27)
[2023-12-23] MEDS: cefTRIAXone sodium 2 GM in 0.9 % Sodium Chloride 50 ML IV (00:27)
--- NOTE | 2023-12-23 00:29 | MHC.PIE ---
p; pt c/o pain to abd and back 03/11. note; no pain med other than prn Tylenol? i; dr vargas notified. new order iv Benadryl now. new order ultram prn e; will cont to monitor
[2023-12-23] MEDS: Acetaminophen 325 MG TABLET 650 MG PO ×3 (03:39→21:32)
[2023-12-23] MEDS: Enoxaparin Sodium 40 MG/0.4 ML SYRINGE SUBCUT (03:40)
[2023-12-23 07:43] LABS: Glucose, Whole Blood 173 mg/dL (60-115)
[2023-12-23] MEDS: Metoprolol Tartrate 50 MG TABLET PO ×2 (07:59→20:44)
[2023-12-23] MEDS: amLODIPine Besylate 5 MG TABLET PO (07:59)
[2023-12-23] MEDS: Insulin Lispro 100 UNIT/ML 3 ML VIAL SUBCUT ×3 (08:02→20:43)
[2023-12-23] MEDS: 0.9 % Sodium Chloride Flush 3 ML SYRINGE IVFLUSH ×3 (08:04→20:43)
[2023-12-23] MEDS: Butalb/Acetamin/Caff 50/325/40 TABLET 1 TAB PO (08:21)
[2023-12-23 11:28] LABS: Glucose, Whole Blood 148 mg/dL (60-115)
--- NOTE | 2023-12-23 13:14 | HO.PM.IMPN ---
Subjective Subjective Date of Service: 12/23/23 Interval History: Complaining of persistent dysuria,, no fevers, has chronic back pain that is worsened from before, no nausea no vomiting tolerating diet , complaining of headache, no dizziness. Took Ultram last night due to back pain and developed itching took Benadryl with good relief. Review of Systems All other system reviewed and negative Physical Exam Vital Signs: Vital Signs: Last Vital Signs Temp 97.8 F 12/23/23 07:50 Pulse 99 12/23/23 07:59 Resp 16 12/23/23 07:50 BP 152/72 H 12/23/23 07:59 Pulse Ox 93 12/23/23 07:50 O2 Del Method Room Air 12/23/23 07:50 O2 Flow Rate 98 12/22/23 01:33 BMI result Body Mass Index 30.0 Const: Other: General awake alert x3, sitting comfortably, in no acute distress. Neck supple no JVD. CVS regular rate rhythm, Respiratory lungs clear to auscultation, no respiratory distress, no wheeze, no rhonchi. Gastrointestinal abdomen soft, non tender, bowel sounds audible Extremities no edema. Neuro non focal Skin no rash Psych appropriate affect Back no CVA tenderness positive tenderness mid lumbar spine. Objective Data Active Medications Acetaminophen (Acetaminophen 325 Mg Tablet) 650 mg PO Q6H PRN PRN Reason: Pain, Mild (Pain Scale 1-3) Last Admin: 12/23/23 12:35 Dose: 650 mg Documented By: MARQUISE Albuterol Sulfate (Albuterol Sulfate 90 Mcg 8 Gm Inhaler) 2 puff INHALE Q4H PRN PRN Reason: Shortness Of Breath Or Wheezing Amlodipine Besylate (Amlodipine Besylate 5 Mg Tablet) 5 mg PO DAILY [facility]; Protocol Last Admin: 12/23/23 07:59 Dose: 5 mg Documented By: JAMARI Atorvastatin Calcium (Atorvastatin Calcium 10 Mg Tablet) 10 mg PO BEDTIME [facility] Last Admin: 12/22/23 21:14 Dose: 10 mg Documented By: JULIO CÉSAR Baclofen (Baclofen 10 Mg Tablet) 10 mg PO DAILY PRN PRN Reason: Muscle Spasm Last Admin: 12/22/23 19:04 Dose: 10 mg Documented By: ANJALI Clonazepam (Clonazepam 0.5 Mg Tablet) 0.5 mg PO BID PRN PRN Reason: Anxiety Last Admin: 12/22/23 21:14 Dose: 0.5 mg Documented By: JULIO CÉSAR Enoxaparin Sodium (Enoxaparin Sodium 40 Mg/0.4 Ml Syringe) 40 mg SUBCUT 0300 [facility] Last Admin: 12/23/23 03:40 Dose: 40 mg Documented By: JULIO CÉSAR Gabapentin (Gabapentin 300 Mg Capsule) 300 mg PO TID PRN PRN Reason: Pain, Moderate(Pain Scale 4-6) Last Admin: 12/22/23 17:43 Dose: 300 mg Documented By: JOSEMANUEL Glucose (Glucose Gel 15 Gm Gel..Gram.) 15 gm PO Q15M PRN; Protocol PRN Reason: per Hypoglycemia Standing Ord. Dextrose (D10) 250 mls @ 750 mls/hr IV Q15M PRN; Protocol PRN Reason: per Hypoglycemia Standing Ord. Ceftriaxone Sodium 2 gm/ (Sodium Chloride) 50 mls @ 100 mls/hr IV Q24H [facility] Last Infusion: 12/23/23 00:59 Dose: Infused Documented By: JULIO CÉSAR Insulin Human Lispro (Insulin Lispro 100 Unit/Ml 3 Ml Vial) 0 unit SUBCUT QIDACHS [facility]; Protocol Last Admin: 12/23/23 12:18 Dose: Not Given Documented By: JAMARI Non-Admin Reason: No Insulin Coverage Melatonin (Melatonin 3 Mg Tablet) 6 mg PO BEDTIME PRN PRN Reason: Insomnia Last Admin: 12/22/23 21:14 Dose: 6 mg Documented By: JULIO CÉSAR Metoprolol Tartrate (Metoprolol Tartrate 50 Mg Tablet) 50 mg PO BID [facility]; Protocol Last Admin: 12/23/23 07:59 Dose: 50 mg Documented By: JAMARI Pt Own (Quetiapine 400 Mg Tablet Extended Release 24 Hr) 400 mg PO BEDTIME [facility] Last Admin: 12/22/23 21:20 Dose: Not Given Documented By: JULIO CÉSAR Non-Admin Reason: Med Not Available Ondansetron HCl (Ondansetron Hcl 4 Mg/2 Ml Vial) 4 mg IVPUSH Q8H PRN PRN Reason: Nausea and Vomiting Senna/Docusate Sodium (Sennosides/Docusate Sodium Tablet) 2 tab PO BEDTIME PRN PRN Reason: constipation Sodium Chloride (0.9 % Sodium Chloride Flush 3 Ml Syringe) 3 ml IVFLUSH QSHIFT SHANE Last Admin: 12/23/23 08:04 Dose: 3 ml Documented By: JAMARI Tramadol HCl (Tramadol Hcl 50 Mg Tablet) 50 mg PO Q6H PRN PRN Reason: Pain, Severe (Pain Scale 7-10) Last Admin: 12/23/23 00:21 Dose: 50 mg Documented By: JULIO CÉSAR Zolpidem Tartrate (Zolpidem Tartrate 5 Mg Tablet) 5 mg PO BEDTIME PRN PRN Reason: Insomnia Labs 12/22/23 04:51 12/22/23 04:51 Labs: Laboratory Results - last 24 hr 12/21/23 12/22/23 12/22/23 23:25 17:52 19:09 POC Glucose 212 H 200 H Urine Color Dark Yellow Urine Appearance Turbid Urine pH 5.5 Ur Specific [place] 1.020 Urine Protein 100 (2+) H Urine Glucose (UA) Negative Urine Ketones Trace Urine Blood Moderate (2+) H Urine Nitrite Negative Ur Leukocyte Esterase Large (3+) H Urine RBC 6-10 H Urine WBC >50 H Ur Squamous Epith Cells >20 Urine Bacteria 4+ Hyaline Casts 6-10 12/22/23 12/23/23 12/23/23 20:44 07:14 10:57 POC Glucose 265 H 173 H 148 H Urine Color Urine Appearance Urine pH Ur Specific [place] Urine Protein Urine Glucose (UA) Urine Ketones Urine Blood Urine Nitrite Ur Leukocyte Esterase Urine RBC Urine WBC Ur Squamous Epith Cells Urine Bacteria Hyaline Casts Microbiology Microbiology Results: Microbiology 12/21/23 23:25 Urine Culture - Preliminary Urine clean catch - Clean Catch Midstream Gram negative elaine 12/22/23 01:03 Blood Culture - Preliminary Blood - Venous Gram negative elaine 12/22/23 00:49 Blood Culture - Preliminary Blood - Venous Gram negative elaine Assessment and Plan (1) Acute renal failure: Status: Acute (2) UTI (urinary tract infection): Status: Acute (3) Sepsis: Status: Acute Plan 68 year old female with pertinent history of non insulin dependent diabetes milletus, hypertension, mixed hyperlipidemia, mood disorder, insomnia who presents to the emergency department for evaluation of dysuria. #. Sepsis due to acute UTI with clinical right-sided pyelonephritis/gram-negative elaine bacteremia: No fever, [place] [address]-94.5 but has bandemia, normal lactic acid Both urine and blood cultures positive for Gram-negative rods, follow final sensitivities No CVA tenderness Abdominal and pelvic CT scan showed no nephrolithiasis or hydronephrosis, no perinephric stranding, no abdominal pathology noted Continue IV ceftriaxone. Add Pyridium for dysuria. #. Acute kidney injury likely prerenal: Renal function improving avoid nephrotoxins , was on ibuprofen and valsartan currently on hold, status post 2 L of IV fluids, follow BMP #. Bai-mhqbglc-snlsyynle diabetes mellitus with hyperglycemia: Stable blood sugars, Metformin on hold, continue diabetic diet and sliding scale insulin, monitor blood sugar closely. #. Hypertension: Continue metoprolol and amlodipine, valsartan on hold due to SHARON, will follow BMP if creatinine normalizes will resume valsartan #. Mood disorder: Continue home mood stabilizers DVT prophylaxis: Lovenox Full code Patient will require continued inpatient hospitalization for IV antibiotics (as above), which is not possible in a lesser acute setting. Quality Stroke Does the patient have a stroke diagnosis?: No VTE Prior VTE?: No VTE Risk Level:: Medical - moderate - high VTE Device Contraindication: Treatment Not Indicated VTE Drug Contraindication: N/A - Med Ordered
[2023-12-23 16:21] LABS: Glucose, Whole Blood 191 mg/dL (60-115)
[2023-12-23] MEDS: Phenazopyridine HCL 100 MG TABLET PO (16:50)
[2023-12-23 20:17] LABS: Glucose, Whole Blood 163 mg/dL (60-115)
[2023-12-23] MEDS: Zolpidem Tartrate 5 MG TABLET PO (20:41)
[2023-12-23] MEDS: clonazePAM 0.5 MG TABLET PO (20:42)
[2023-12-23] MEDS: Atorvastatin Calcium 10 MG TABLET PO (20:42)
[2023-12-23] MEDS: Gabapentin 300 MG CAPSULE PO (20:42)
[2023-12-24] VITALS (7 sets, daily range): BP systolic 119–141; BP diastolic 63–78; PULSE 95–120; RESP 16–18; TEMP 36.2–36.7; O2SAT 93–95
[2023-12-24] MEDS: cefTRIAXone sodium 2 GM in 0.9 % Sodium Chloride 50 ML IV (01:48)
[2023-12-24] MEDS: Enoxaparin Sodium 40 MG/0.4 ML SYRINGE SUBCUT (01:55)
[2023-12-24 07:22] LABS: Glucose, Whole Blood 133 mg/dL (60-115)
[2023-12-24] MEDS: Acetaminophen 325 MG TABLET 650 MG PO ×2 (08:30→17:11)
[2023-12-24] MEDS: Metoprolol Tartrate 50 MG TABLET PO ×2 (08:30→21:29)
[2023-12-24] MEDS: amLODIPine Besylate 5 MG TABLET PO (08:31)
[2023-12-24] MEDS: Phenazopyridine HCL 100 MG TABLET PO ×2 (08:31→17:04)
[2023-12-24] MEDS: 0.9 % Sodium Chloride Flush 3 ML SYRINGE IVFLUSH ×3 (08:32→21:30)
[2023-12-24] MEDS: Gabapentin 300 MG CAPSULE PO (08:43)
[2023-12-24 09:42] LABS: Hematocrit 31.5 % (37.0-47.0); Hemoglobin 10.7 g/dl (12.0-16.0); Mean Corpuscular Volume 85.4 fL (80.0-98.0); Mean Platelet Volume 10.6 fL (9.4-12.3); Platelet Count 271 X10*3/uL (160-400); Red Blood Count 3.69 X10*6/uL (4.20-5.50); Red Cell Distribution Width 14.9 % (11.0-16.0); White Blood Count 13.4 X10*3/uL (4.8-10.8)
[2023-12-24 10:01] LABS: Anion Gap 17 (12-20); Blood Urea Nitrogen 20 mg/dL (9-16); Calcium 9.3 mg/dL (8.4-10.2); Carbon Dioxide 24 mmol/L (22-29); Chloride 103 mmol/L (96-108); Creatinine Clr Calc Pharmacy 43.4; Estimated Glomerular Filt Rate 39; Glucose Random 125 mg/dL (60-115); Potassium 3.7 mmol/L (3.3-5.1); Sodium 140 mmol/L (135-145)
[2023-12-24 11:21] LABS: Glucose, Whole Blood 337 mg/dL (60-115)
[2023-12-24] MEDS: Insulin Lispro 100 UNIT/ML 3 ML VIAL SUBCUT ×3 (11:50→21:30)
--- NOTE | 2023-12-24 13:00 | MHC.CM.PN ---
PER MD ROUNDS, PT NOT YET READY TO DC DCP REMAINS HOME VIA PRIVATE TRANSPORT CM FOLLOWING
--- NOTE | 2023-12-24 13:04 | P.PNIM_ITS ---
Subjective Subjective Date of Service: 12/24/23 Interval History: Feeling better, dysuria improved , no fevers, no chills, complaining of persistent chronic back pain, received Ultram last night developed itching, history of itching to multiple narcotics, no other acute issues overnight. Tolerating diet no nausea, no vomiting, no abdominal pain. Review of Systems All other system reviewed and are negative. Physical Exam 2 Vital Signs: Vital Signs: Last Vital Signs Temp 97.3 F 12/24/23 07:22 Pulse 116 H 12/24/23 08:30 Resp 16 12/24/23 07:22 BP 119/75 12/24/23 08:31 Pulse Ox 93 12/24/23 07:22 O2 Del Method Room Air 12/24/23 07:22 O2 Flow Rate 98 12/22/23 01:33 BMI result Body Mass Index 30.0 Const: Other: General awake alert x3, sitting comfortably, in no acute distress. Neck supple no JVD. CVS regular rate rhythm, Respiratory lungs clear to auscultation, no respiratory distress, no wheeze, no rhonchi. Gastrointestinal abdomen soft, non tender, bowel sounds audible. Extremities no edema. Neuro non focal. Skin no rash. Psych appropriate affect. Back no CVA tenderness, positive tenderness mid lumbar spine. Objective Data Active Medications Acetaminophen (Acetaminophen 325 Mg Tablet) 650 mg PO Q6H PRN PRN Reason: Pain, Mild (Pain Scale 1-3) Last Admin: 12/24/23 08:30 Dose: 650 mg Documented By: JAMARI Albuterol Sulfate (Albuterol Sulfate 90 Mcg 8 Gm Inhaler) 2 puff INHALE Q4H PRN PRN Reason: Shortness Of Breath Or Wheezing Amlodipine Besylate (Amlodipine Besylate 5 Mg Tablet) 5 mg PO DAILY [facility]; Protocol Last Admin: 12/24/23 08:31 Dose: 5 mg Documented By: JAMARI Atorvastatin Calcium (Atorvastatin Calcium 10 Mg Tablet) 10 mg PO BEDTIME [facility] Last Admin: 12/23/23 20:42 Dose: 10 mg Documented By: CLARKE Baclofen (Baclofen 10 Mg Tablet) 10 mg PO DAILY PRN PRN Reason: Muscle Spasm Last Admin: 12/22/23 19:04 Dose: 10 mg Documented By: ANJALI Clonazepam (Clonazepam 0.5 Mg Tablet) 0.5 mg PO BID PRN PRN Reason: Anxiety Last Admin: 12/23/23 20:42 Dose: 0.5 mg Documented By: CLARKE Enoxaparin Sodium (Enoxaparin Sodium 40 Mg/0.4 Ml Syringe) 40 mg SUBCUT 0300 [facility] Last Admin: 12/24/23 01:55 Dose: 40 mg Documented By: CLARKE Gabapentin (Gabapentin 300 Mg Capsule) 300 mg PO TID PRN PRN Reason: Pain, Moderate(Pain Scale 4-6) Last Admin: 12/24/23 08:43 Dose: 300 mg Documented By: JAMARI Glucose (Glucose Gel 15 Gm Gel..Gram.) 15 gm PO Q15M PRN; Protocol PRN Reason: per Hypoglycemia Standing Ord. Dextrose (D10) 250 mls @ 750 mls/hr IV Q15M PRN; Protocol PRN Reason: per Hypoglycemia Standing Ord. Ceftriaxone Sodium 2 gm/ (Sodium Chloride) 50 mls @ 100 mls/hr IV Q24H [facility] Last Infusion: 12/24/23 02:18 Dose: Infused Documented By: CLARKE Insulin Human Lispro (Insulin Lispro 100 Unit/Ml 3 Ml Vial) 0 unit SUBCUT QIDACHS [facility]; Protocol Last Admin: 12/24/23 11:50 Dose: 8 unit Documented By: JAMARI Melatonin (Melatonin 3 Mg Tablet) 6 mg PO BEDTIME PRN PRN Reason: Insomnia Last Admin: 12/22/23 21:14 Dose: 6 mg Documented By: JULIO CÉSAR Metoprolol Tartrate (Metoprolol Tartrate 50 Mg Tablet) 50 mg PO BID [facility]; Protocol Last Admin: 12/24/23 08:30 Dose: 50 mg Documented By: JAMARI Pt Own (Quetiapine 400 Mg Tablet Extended Release 24 Hr) 400 mg PO BEDTIME [facility] Last Admin: 12/23/23 21:24 Dose: 400 mg Documented By: CLARKE Ondansetron HCl (Ondansetron Hcl 4 Mg/2 Ml Vial) 4 mg IVPUSH Q8H PRN PRN Reason: Nausea and Vomiting Phenazopyridine HCl (Phenazopyridine Hcl 100 Mg Tablet) 100 mg PO BIDWM [facility] Stop: 12/25/23 08:01 Last Admin: 12/24/23 08:31 Dose: 100 mg Documented By: JAMARI Senna/Docusate Sodium (Sennosides/Docusate Sodium Tablet) 2 tab PO BEDTIME PRN PRN Reason: constipation Sodium Chloride (0.9 % Sodium Chloride Flush 3 Ml Syringe) 3 ml IVFLUSH QSHIFT [facility] Last Admin: 12/24/23 08:32 Dose: 3 ml Documented By: JAMARI Tramadol HCl (Tramadol Hcl 50 Mg Tablet) 50 mg PO Q6H PRN PRN Reason: Pain, Severe (Pain Scale 7-10) Last Admin: 12/23/23 20:42 Dose: 50 mg Documented By: CLARKE Trolamine Salicylate (Trolamine Salicylate 10 % Cream 85 Gm Tube) 1 appl TOPICAL BID PRN; Protocol PRN Reason: mid back Zolpidem Tartrate (Zolpidem Tartrate 5 Mg Tablet) 5 mg PO BEDTIME PRN PRN Reason: Insomnia Last Admin: 12/23/23 20:41 Dose: 5 mg Documented By: CLARKE Labs 12/24/23 07:53 12/24/23 07:53 Labs: Laboratory Results - last 24 hr 12/23/23 12/23/23 12/24/23 16:11 20:08 07:19 MCV MCH MCHC RDW Plt Count MPV Absolute Nucleated RBC Nucleated RBC % (auto) Anion Gap Estim Creat Clear Calc Estimated GFR POC Glucose 191 H 163 H 133 H Random Glucose Calcium 12/24/23 12/24/23 07:53 11:18 MCV 85.4 MCH 29.0 MCHC 34.0 RDW 14.9 Plt Count 271 D MPV 10.6 Absolute Nucleated RBC 0.000 Nucleated RBC % (auto) 0.0 Anion Gap 17 Estim Creat Clear Calc 43.4 Estimated GFR 39 POC Glucose 337 H Random Glucose 125 H Calcium 9.3 Microbiology Microbiology Results: Microbiology 12/22/23 01:03 Blood Culture - Final Blood - Venous Escherichia coli 12/22/23 00:49 Blood Culture - Final Blood - Venous Escherichia coli 12/21/23 23:25 Urine Culture - Final Urine clean catch - Clean Catch Midstream Escherichia coli Assessment and Plan (1) Acute renal failure: Status: Acute (2) UTI (urinary tract infection): Status: Acute (3) Sepsis: Status: Acute Plan 68 year old female with pertinent history of non insulin dependent diabetes milletus, hypertension, mixed hyperlipidemia, mood disorder, insomnia who presents to the emergency department for evaluation of dysuria. #. Sepsis due to acute UTI with clinical right-sided pyelonephritis/gram- negative elaine bacteremia: No fever, WBC 12854-98.5 >13.4 , normal lactic acid Both urine and blood cultures positive for E coli sensitive to ceftriaxone No CVA tenderness Abdominal and pelvic CT scan showed no nephrolithiasis or hydronephrosis, no perinephric stranding, no abdominal pathology noted Continue IV ceftriaxone day 3/14, since WBC worsened, follow CBC if normalize will transition to by mouth antibiotics on Pyridium for dysuria. #. Acute kidney injury likely prerenal: Renal function normalized , was on ibuprofen and valsartan currently on hold, status post 2 L of IV fluids, #. [id number] diabetes mellitus with hyperglycemia: Elevated blood sugars on diabetic diet, all Metformin on hold, continue diabetic diet and sliding scale insulin, monitor blood sugar closely. #. Hypertension: Continue metoprolol and amlodipine, valsartan on hold due to SHARON, will follow BMP if creatinine normalizes will resume valsartan #. Mood disorder: Continue home mood stabilizers # chronic back pain will avoid narcotics due to side effect of itching recommend Aspercreme , muscle relaxer, hot pack and Tylenol. DVT prophylaxis: Lovenox Full code Patient will require continued inpatient hospitalization for IV antibiotics (as above), which is not possible in a lesser acute setting. Quality Stroke Does the patient have a stroke diagnosis?: No VTE Prior VTE?: No VTE Risk Level:: Medical - moderate - high VTE Device Contraindication: Treatment Not Indicated VTE Drug Contraindication: N/A - Med Ordered
[2023-12-24] MEDS: Trolamine Salicylate 10 % Cream 85 GM TUBE 1 APPL TOPICAL (15:06)
[2023-12-24 16:31] LABS: Glucose, Whole Blood 193 mg/dL (60-115)
[2023-12-24 20:33] LABS: Glucose, Whole Blood 378 mg/dL (60-115)
[2023-12-24] MEDS: Atorvastatin Calcium 10 MG TABLET PO (21:30)
[2023-12-25] MEDS: cefTRIAXone sodium 2 GM in 0.9 % Sodium Chloride 50 ML IV (01:28)
[2023-12-25] MEDS: Acetaminophen 325 MG TABLET 650 MG PO ×4 (02:12→21:08)
[2023-12-25] MEDS: Enoxaparin Sodium 40 MG/0.4 ML SYRINGE SUBCUT (02:13)
[2023-12-25] MEDS: Trolamine Salicylate 10 % Cream 85 GM TUBE 1 APPL TOPICAL (02:13)
[2023-12-25 03:30] VITALS: BP 142/73; PULSE 122; RESP 17; TEMP 36.7; O2SAT 94
[2023-12-25 07:31] LABS: Glucose, Whole Blood 247 mg/dL (60-115)
[2023-12-25 07:32] LABS: Hematocrit 31.2 % (37.0-47.0); Hemoglobin 10.6 g/dl (12.0-16.0); Mean Corpuscular Hemoglobin 28.3 pg (27.0-33.0); Mean Corpuscular Volume 83.4 fL (80.0-98.0); Mean Platelet Volume 10.3 fL (9.4-12.3); Platelet Count 296 X10*3/uL (160-400); Red Blood Count 3.74 X10*6/uL (4.20-5.50); Red Cell Distribution Width 14.5 % (11.0-16.0); White Blood Count 13.8 X10*3/uL (4.8-10.8)
[2023-12-25 07:43] VITALS: BP 136/75; PULSE 125; RESP 16; TEMP 36.6; O2SAT 95
[2023-12-25 07:56] LABS: Anion Gap 18 (12-20); Blood Urea Nitrogen 13 mg/dL (9-16); Calcium 9.6 mg/dL (8.4-10.2); Carbon Dioxide 22 mmol/L (22-29); Chloride 102 mmol/L (96-108); Creatinine Clr Calc Pharmacy 58.7; Estimated Glomerular Filt Rate 56; Glucose Random 262 mg/dL (60-115); Potassium 3.5 mmol/L (3.3-5.1); Sodium 138 mmol/L (135-145)
[2023-12-25] MEDS: 0.9 % Sodium Chloride Flush 3 ML SYRINGE IVFLUSH (08:59)
[2023-12-25] MEDS: Phenazopyridine HCL 100 MG TABLET PO (09:00)
[2023-12-25] MEDS: Metoprolol Tartrate 50 MG TABLET PO ×2 (09:00→20:54)
[2023-12-25] MEDS: Valsartan 80 MG TABLET PO (09:00)
[2023-12-25] MEDS: amLODIPine Besylate 5 MG TABLET PO (09:00)
[2023-12-25] MEDS: Insulin Lispro 100 UNIT/ML 3 ML VIAL SUBCUT ×4 (09:28→20:54)
[2023-12-25 11:28] LABS: Glucose, Whole Blood 285 mg/dL (60-115)
--- NOTE | 2023-12-25 13:02 | HO.PM.IMPN ---
Subjective Subjective Date of Service: 12/25/23 Interval History: denies dysuria or flank pain feels weak no fever Review of Systems Review of Systems: Yes all other systems are reviewed and are negative Physical Exam Vital Signs: Vital Signs: Last Vital Signs Temp 97.9 F 12/25/23 07:43 Pulse 125 H 12/25/23 07:43 Resp 16 12/25/23 07:43 BP 136/75 12/25/23 07:43 Pulse Ox 95 12/25/23 07:43 O2 Del Method Room Air 12/25/23 07:43 O2 Flow Rate 98 12/22/23 01:33 BMI result Body Mass Index 30.0 Gen: in no acute distress HEENT: sclera anicteric, dry mucus membranes Neck: supple Lungs: clear to auscultation bilaterally Heart: regular, tachycardic, no murmurs Abd: soft, non-tender, non-distended Ext: no edema Skin: warm/well-perfused Neuro: alert and oriented x3, no focal findings Psych: appropriate affect Objective Data Active Medications Acetaminophen (Acetaminophen 325 Mg Tablet) 650 mg PO Q6H PRN PRN Reason: Pain, Mild (Pain Scale 1-3) Last Admin: 12/25/23 08:59 Dose: 650 mg Documented By: JESSENIA Albuterol Sulfate (Albuterol Sulfate 90 Mcg 8 Gm Inhaler) 2 puff INHALE Q4H PRN PRN Reason: Shortness Of Breath Or Wheezing Amlodipine Besylate (Amlodipine Besylate 5 Mg Tablet) 5 mg PO DAILY [facility]; Protocol Last Admin: 12/25/23 09:00 Dose: 5 mg Documented By: JESSENIA Atorvastatin Calcium (Atorvastatin Calcium 10 Mg Tablet) 10 mg PO BEDTIME [facility] Last Admin: 12/24/23 21:30 Dose: 10 mg Documented By: CLARKE Baclofen (Baclofen 10 Mg Tablet) 10 mg PO DAILY PRN PRN Reason: Muscle Spasm Last Admin: 12/22/23 19:04 Dose: 10 mg Documented By: ANJALI Clonazepam (Clonazepam 0.5 Mg Tablet) 0.5 mg PO BID PRN PRN Reason: Anxiety Last Admin: 12/23/23 20:42 Dose: 0.5 mg Documented By: CLARKE Enoxaparin Sodium (Enoxaparin Sodium 40 Mg/0.4 Ml Syringe) 40 mg SUBCUT 0300 [facility] Last Admin: 12/25/23 02:13 Dose: 40 mg Documented By: CLARKE Glucose (Glucose Gel 15 Gm Gel..Gram.) 15 gm PO Q15M PRN; Protocol PRN Reason: per Hypoglycemia Standing Ord. Dextrose (D10) 250 mls @ 750 mls/hr IV Q15M PRN; Protocol PRN Reason: per Hypoglycemia Standing Ord. Ceftriaxone Sodium 2 gm/ (Sodium Chloride) 50 mls @ 100 mls/hr IV Q24H [facility] Last Infusion: 12/25/23 02:10 Dose: Infused Documented By: CLARKE Sodium Chloride (Ns) 1,000 mls @ 125 mls/hr IVCONT .Q8H [facility] Stop: 12/25/23 21:14 Insulin Human Lispro (Insulin Lispro 100 Unit/Ml 3 Ml Vial) 0 unit SUBCUT QIDACHS [facility]; Protocol Last Admin: 12/25/23 11:33 Dose: 8 unit Documented By: JESSENIA Melatonin (Melatonin 3 Mg Tablet) 6 mg PO BEDTIME PRN PRN Reason: Insomnia Last Admin: 12/22/23 21:14 Dose: 6 mg Documented By: JULIO CÉSAR Metoprolol Tartrate (Metoprolol Tartrate 50 Mg Tablet) 50 mg PO BID [facility]; Protocol Last Admin: 12/25/23 09:00 Dose: 50 mg Documented By: JESSENIA Pt Own (Quetiapine 400 Mg Tablet Extended Release 24 Hr) 400 mg PO BEDTIME [facility] Last Admin: 12/24/23 21:30 Dose: 400 mg Documented By: CLARKE Ondansetron HCl (Ondansetron Hcl 4 Mg/2 Ml Vial) 4 mg IVPUSH Q8H PRN PRN Reason: Nausea and Vomiting Senna/Docusate Sodium (Sennosides/Docusate Sodium Tablet) 2 tab PO BEDTIME PRN PRN Reason: constipation Sodium Chloride (0.9 % Sodium Chloride Flush 3 Ml Syringe) 3 ml IVFLUSH QSHIFT [facility] Last Admin: 12/25/23 08:59 Dose: 3 ml Documented By: JESSENIA Trolamine Salicylate (Trolamine Salicylate 10 % Cream 85 Gm Tube) 1 appl TOPICAL BID PRN; Protocol PRN Reason: mid back Last Admin: 12/25/23 02:13 Dose: 1 appl Documented By: CLARKE Valsartan (Valsartan 80 Mg Tablet) 80 mg PO DAILY [facility]; Protocol Last Admin: 12/25/23 09:00 Dose: 80 mg Documented By: JESSENIA Zolpidem Tartrate (Zolpidem Tartrate 5 Mg Tablet) 5 mg PO BEDTIME PRN PRN Reason: Insomnia Last Admin: 12/23/23 20:41 Dose: 5 mg Documented By: CLARKE Labs 12/25/23 06:09 12/25/23 06:12 Labs: Laboratory Results - last 24 hr 12/24/23 12/24/23 12/25/23 16:27 20:29 06:09 MCV 83.4 MCH 28.3 MCHC 34.0 RDW 14.5 Plt Count 296 MPV 10.3 Absolute Nucleated RBC 0.000 Nucleated RBC % (auto) 0.0 Anion Gap Estim Creat Clear Calc Estimated GFR POC Glucose 193 H 378 H* Random Glucose Calcium 12/25/23 12/25/23 12/25/23 06:12 07:16 11:17 MCV MCH MCHC RDW Plt Count MPV Absolute Nucleated RBC Nucleated RBC % (auto) Anion Gap 18 Estim Creat Clear Calc 58.7 Estimated GFR 56 POC Glucose 247 H 285 H Random Glucose 262 H Calcium 9.6 Microbiology Microbiology Results: Microbiology 12/22/23 00:49 Blood Culture - Final Blood - Venous Escherichia coli 12/22/23 01:03 Blood Culture - Final Blood - Venous Escherichia coli Assessment and Plan (1) Acute renal failure: Status: Acute (2) UTI (urinary tract infection): Status: Acute (3) Sepsis: Status: Acute Plan d4 68yo F with DM2, HTN, HLD, mood disorder, insomnia presenting with dysuria, admitted for sepsis with UTI with E. coli bacteremia sepsis due to UTI/R-sided pyelonephritis/E. coli bacteremia - fletcher-sensitive E. coli, on ceftriaxone 12/21-, repeat BCx tomorrow, likely total 14d antibiotic therapy toxic encephalopathy - due to gabapentin, discontinued due to excessive somnolence prerenal SHARON - resolved but appears dry again today; will give 1L IV fluid and recheck BMP in AM DM2 with hyperglycemia - increase tammy-dose lispro HTN - continue metoprolol + amlodipine, resume valsartan and recheck BMP in AM mood disorder - continue quetiapine, clonazepam, zolpidem VTE ppx - LMWH dispo - PT eval pending In my clinical judgment, the patient requires continued inpatient hospitalization for the following reasons: IV ABX, IV fluids Total time managing care of this patient today: 35 minutes. Quality Stroke Does the patient have a stroke diagnosis?: No VTE Prior VTE?: No VTE Risk Level:: Medical - moderate - high VTE Device Contraindication: Treatment Not Indicated VTE Drug Contraindication: N/A - Med Ordered
[2023-12-25] MEDS: Baclofen 10 MG TABLET PO (13:28)
[2023-12-25] MEDS: 0.9 % Sodium Chloride 1,000 ML 125 ML IVCONT (13:32)
[2023-12-25 13:59] VITALS: BP 136/75; PULSE 125; O2SAT 95
[2023-12-25 15:28] VITALS: BP 161/72; PULSE 120; RESP 20; TEMP 37; O2SAT 93
[2023-12-25 16:47] LABS: Glucose, Whole Blood 221 mg/dL (60-115)
[2023-12-25 19:57] VITALS: BP 163/85; PULSE 116; RESP 17; TEMP 36.8; O2SAT 94
[2023-12-25 20:24] LABS: Glucose, Whole Blood 269 mg/dL (60-115)
[2023-12-25 20:54] VITALS: BP 163/85; PULSE 116
[2023-12-25] MEDS: Atorvastatin Calcium 10 MG TABLET PO (20:54)
[2023-12-26] VITALS (7 sets, daily range): BP systolic 135–180; BP diastolic 64–84; PULSE 100–129; RESP 17–18; TEMP 36.4–37.4; O2SAT 92–95
[2023-12-26] MEDS: cefTRIAXone sodium 2 GM in 0.9 % Sodium Chloride 50 ML IV (02:39)
[2023-12-26] MEDS: Enoxaparin Sodium 40 MG/0.4 ML SYRINGE SUBCUT (03:41)
[2023-12-26 07:06] LABS: Hematocrit 28.2 % (37.0-47.0); Hemoglobin 9.6 g/dl (12.0-16.0); Mean Corpuscular Hemoglobin 28.7 pg (27.0-33.0); Mean Corpuscular Volume 84.2 fL (80.0-98.0); Mean Platelet Volume 9.5 fL (9.4-12.3); Platelet Count 294 X10*3/uL (160-400); Red Blood Count 3.35 X10*6/uL (4.20-5.50); Red Cell Distribution Width 14.4 % (11.0-16.0); White Blood Count 20.6 X10*3/uL (4.8-10.8)
[2023-12-26 07:15] LABS: Anion Gap 15 (12-20); Blood Urea Nitrogen 9 mg/dL (9-16); Calcium 9.4 mg/dL (8.4-10.2); Carbon Dioxide 23 mmol/L (22-29); Chloride 102 mmol/L (96-108); Estimated Glomerular Filt Rate > 60; Glucose Random 217 mg/dL (60-115); Potassium 3.2 mmol/L (3.3-5.1); Sodium 137 mmol/L (135-145)
[2023-12-26 07:45] LABS: Glucose, Whole Blood 230 mg/dL (60-115)
[2023-12-26 08:31] LABS: C Reactive Protein 34.75 mg/dL (< or = 0.50); Magnesium 1.5 mg/dL (1.6-2.6)
[2023-12-26] MEDS: 0.9 % Sodium Chloride Flush 3 ML SYRINGE IVFLUSH ×2 (09:04→22:28)
[2023-12-26] MEDS: Metoprolol Tartrate 50 MG TABLET PO ×2 (09:05→19:57)
[2023-12-26] MEDS: Insulin Lispro 100 UNIT/ML 3 ML VIAL SUBCUT ×4 (09:05→22:10)
[2023-12-26] MEDS: Valsartan 80 MG TABLET PO (09:05)
[2023-12-26] MEDS: Potassium Chloride ER 20 MEQ TAB.ER.PRT 40 MEQ PO (09:06)
[2023-12-26] MEDS: Acetaminophen 325 MG TABLET 650 MG PO ×3 (09:06→22:17)
[2023-12-26] MEDS: amLODIPine Besylate 5 MG TABLET PO (09:17)
[2023-12-26] MEDS: 0.9 % Sodium Chloride 1,000 ML 100 ML IVCONT ×2 (09:17→20:49)
[2023-12-26] MEDS: Trolamine Salicylate 10 % Cream 85 GM TUBE 1 APPL TOPICAL (09:19)
[2023-12-26] MEDS: clonazePAM 0.5 MG TABLET PO ×2 (10:42→19:55)
--- NOTE | 2023-12-26 10:43 | HO.PM.IMPN ---
Subjective Subjective Date of Service: 12/26/23 Interval History: no dysuria or flank pain tachycardic c/o L hand/wrist pain/swelling Review of Systems Review of Systems: Yes all other systems are reviewed and are negative Physical Exam Vital Signs: Vital Signs: Last Vital Signs Temp 97.6 F 12/26/23 07:37 Pulse 129 H 12/26/23 07:37 Resp 18 12/26/23 07:37 BP 165/79 H 12/26/23 07:37 Pulse Ox 92 12/26/23 07:37 O2 Del Method Room Air 12/26/23 07:37 O2 Flow Rate 98 12/22/23 01:33 BMI result Body Mass Index 30.0 Gen: in no acute distress HEENT: sclera anicteric, dry mucus membranes Neck: supple Lungs: clear to auscultation bilaterally Heart: regular, tachycardic, no murmurs Abd: soft, non-tender, non-distended Ext: LUE with hand/wrist/forearm swelling, tenderness Skin: warm/well-perfused Neuro: alert and oriented x3, no focal findings Psych: appropriate affect Objective Data Active Medications Acetaminophen (Acetaminophen 325 Mg Tablet) 650 mg PO Q6H PRN PRN Reason: Pain, Mild (Pain Scale 1-3) Last Admin: 12/26/23 09:06 Dose: 650 mg Documented By: JESSENIA Albuterol Sulfate (Albuterol Sulfate 90 Mcg 8 Gm Inhaler) 2 puff INHALE Q4H PRN PRN Reason: Shortness Of Breath Or Wheezing Amlodipine Besylate (Amlodipine Besylate 5 Mg Tablet) 5 mg PO DAILY [facility]; Protocol Last Admin: 12/26/23 09:17 Dose: 5 mg Documented By: JESSENIA Atorvastatin Calcium (Atorvastatin Calcium 10 Mg Tablet) 10 mg PO BEDTIME [facility] Last Admin: 12/25/23 20:54 Dose: 10 mg Documented By: ANDRE Baclofen (Baclofen 10 Mg Tablet) 10 mg PO DAILY PRN PRN Reason: Muscle Spasm Last Admin: 12/25/23 13:28 Dose: 10 mg Documented By: JESSENIA Clonazepam (Clonazepam 0.5 Mg Tablet) 0.5 mg PO BID PRN PRN Reason: Anxiety Last Admin: 12/23/23 20:42 Dose: 0.5 mg Documented By: CLARKE Enoxaparin Sodium (Enoxaparin Sodium 40 Mg/0.4 Ml Syringe) 40 mg SUBCUT 0300 [facility] Last Admin: 12/26/23 03:41 Dose: 40 mg Documented By: ANDRE Glucose (Glucose Gel 15 Gm Gel..Gram.) 15 gm PO Q15M PRN; Protocol PRN Reason: per Hypoglycemia Standing Ord. Dextrose (D10) 250 mls @ 750 mls/hr IV Q15M PRN; Protocol PRN Reason: per Hypoglycemia Standing Ord. Ceftriaxone Sodium 2 gm/ (Sodium Chloride) 50 mls @ 100 mls/hr IV Q24H [facility] Last Infusion: 12/26/23 03:32 Dose: Infused Documented By: ANDRE Sodium Chloride (Ns) 1,000 mls @ 100 mls/hr IVCONT .Q10H [facility] Last Admin: 12/26/23 09:17 Dose: 100 mls/hr Documented By: JESSENIA Magnesium Sulfate (Magnesium Sulfate/H2o) 2 gm in 50 mls @ 25 mls/hr IV ONCE ONE Stop: 12/26/23 12:40 Insulin Human Lispro (Insulin Lispro 100 Unit/Ml 3 Ml Vial) 0 unit SUBCUT QIDACHS [facility]; Protocol Last Admin: 12/26/23 09:05 Dose: 6 unit Documented By: JESSENIA Melatonin (Melatonin 3 Mg Tablet) 6 mg PO BEDTIME PRN PRN Reason: Insomnia Last Admin: 12/22/23 21:14 Dose: 6 mg Documented By: JULIO CÉSAR Metoprolol Tartrate (Metoprolol Tartrate 50 Mg Tablet) 50 mg PO BID [facility]; Protocol Last Admin: 12/26/23 09:05 Dose: 50 mg Documented By: JESSENIA Pt Own (Quetiapine 400 Mg Tablet Extended Release 24 Hr) 400 mg PO BEDTIME [facility] Last Admin: 12/25/23 21:08 Dose: 400 mg Documented By: ANDRE Ondansetron HCl (Ondansetron Hcl 4 Mg/2 Ml Vial) 4 mg IVPUSH Q8H PRN PRN Reason: Nausea and Vomiting Senna/Docusate Sodium (Sennosides/Docusate Sodium Tablet) 2 tab PO BEDTIME PRN PRN Reason: constipation Sodium Chloride (0.9 % Sodium Chloride Flush 3 Ml Syringe) 3 ml IVFLUSH QSHIFT [facility] Last Admin: 12/26/23 09:04 Dose: 3 ml Documented By: JESSENIA Trolamine Salicylate (Trolamine Salicylate 10 % Cream 85 Gm Tube) 1 appl TOPICAL BID PRN; Protocol PRN Reason: mid back Last Admin: 12/26/23 09:19 Dose: 1 appl Documented By: JESSENIA Valsartan (Valsartan 80 Mg Tablet) 80 mg PO DAILY [facility]; Protocol Last Admin: 12/26/23 09:05 Dose: 80 mg Documented By: JESSENIA Zolpidem Tartrate (Zolpidem Tartrate 5 Mg Tablet) 5 mg PO BEDTIME PRN PRN Reason: Insomnia Last Admin: 12/23/23 20:41 Dose: 5 mg Documented By: CLARKE Labs 12/26/23 06:45 12/26/23 06:45 Labs: Laboratory Results - last 24 hr 12/25/23 12/25/23 12/25/23 11:17 16:40 20:15 MCV MCH MCHC RDW Plt Count MPV Absolute Nucleated RBC Nucleated RBC % (auto) Anion Gap Estim Creat Clear Calc Estimated GFR POC Glucose 285 H 221 H 269 H Random Glucose Calcium Magnesium C-Reactive Protein 12/26/23 12/26/23 06:45 07:40 MCV 84.2 MCH 28.7 MCHC 34.0 RDW 14.4 Plt Count 294 MPV 9.5 Absolute Nucleated RBC 0.000 Nucleated RBC % (auto) 0.0 Anion Gap 15 Estim Creat Clear Calc 70.0 Estimated GFR > 60 POC Glucose 230 H Random Glucose 217 H Calcium 9.4 Magnesium 1.5 L C-Reactive Protein 34.75 H Microbiology Microbiology Results: Microbiology 12/22/23 00:49 Blood Culture - Final Blood - Venous Escherichia coli Assessment and Plan (1) Acute renal failure: Status: Acute (2) UTI (urinary tract infection): Status: Acute (3) Sepsis: Status: Acute Plan d5 68yo F with DM2, HTN, HLD, mood disorder, insomnia presenting with dysuria, admitted for sepsis with UTI with E. coli bacteremia sepsis due to UTI/R-sided pyelonephritis/E. coli bacteremia - fletcher-sensitive E. coli, on ceftriaxone 12/21-, repeat BCx 12/25, likely total 14d antibiotic therapy - renal US to r/o abscess given increasing WBCs + tachycardia; consider repeating CT with contrast if unrevealing toxic encephalopathy - due to gabapentin, discontinued due to excessive somnolence prerenal SHARON - resolved but appears dry; continue NS hypoK hypoMg - replete, recheck levels in am LUE swelling/pain - Duplex US to r/o DVT; plain films of hand + wrist DM2 with hyperglycemia - tammy-dose lispro HTN - continue metoprolol + amlodipine, resume valsartan and recheck BMP in AM mood disorder - continue quetiapine, clonazepam, zolpidem VTE ppx - LMWH dispo - PT eval pending In my clinical judgment, the patient requires continued inpatient hospitalization for the following reasons: IV ABX, IV fluids Total time managing care of this patient today: 45 minutes. Quality Stroke Does the patient have a stroke diagnosis?: No VTE Prior VTE?: No VTE Risk Level:: Medical - moderate - high VTE Device Contraindication: Treatment Not Indicated VTE Drug Contraindication: N/A - Med Ordered
[2023-12-26] MEDS: Magnesium Sulfate/H2O 2 GM/50 ML PIGGYBACK IV (11:09)
[2023-12-26] MEDS: Sennosides/Docusate Sodium TABLET 2 TAB PO ×2 (11:12→19:56)
[2023-12-26] MEDS: polyethylene glycoL 3350 17 GM POWD.PACK PO (11:13)
[2023-12-26 11:41] LABS: Glucose, Whole Blood 335 mg/dL (60-115)
[2023-12-26] MEDS: Phenazopyridine HCL 200 MG TABLET PO ×2 (15:43→18:24)
[2023-12-26 16:37] LABS: Glucose, Whole Blood 210 mg/dL (60-115)
[2023-12-26] MEDS: oxyCODONE HCl Immed Release 5 MG TABLET PO (19:56)
[2023-12-26] MEDS: Atorvastatin Calcium 10 MG TABLET PO (19:57)
[2023-12-26 20:13] LABS: Glucose, Whole Blood 244 mg/dL (60-115)
[2023-12-26] MEDS: Zolpidem Tartrate 5 MG TABLET PO (22:10)
[2023-12-27] MEDS: cefTRIAXone sodium 2 GM in 0.9 % Sodium Chloride 50 ML IV (03:05)
[2023-12-27] MEDS: Enoxaparin Sodium 40 MG/0.4 ML SYRINGE SUBCUT (03:06)
[2023-12-27] MEDS: oxyCODONE HCl Immed Release 5 MG TABLET PO ×3 (03:09→20:50)
[2023-12-27 03:41] VITALS: BP 145/70; PULSE 119; RESP 17; TEMP 36.4; O2SAT 92
[2023-12-27] MEDS: 0.9 % Sodium Chloride 1,000 ML 100 ML IVCONT ×2 (05:25→15:36)
[2023-12-27 06:28] LABS: Hematocrit 28.2 % (37.0-47.0); Hemoglobin 9.4 g/dl (12.0-16.0); Mean Corpuscular HGB Conc 33.3 g/dl (31.0-35.0); Mean Corpuscular Hemoglobin 28.5 pg (27.0-33.0); Mean Corpuscular Volume 85.5 fL (80.0-98.0); Mean Platelet Volume 10.8 fL (9.4-12.3); Platelet Count 252 X10*3/uL (160-400); Red Cell Distribution Width 14.9 % (11.0-16.0); White Blood Count 20.1 X10*3/uL (4.8-10.8)
[2023-12-27 07:16] VITALS: BP 144/75; PULSE 133; RESP 17; TEMP 37.5; O2SAT 90
[2023-12-27 07:38] LABS: Erythrocyte Sedimentation Rate 109 MM/HR (0-20)
[2023-12-27] MEDS: Insulin Lispro 100 UNIT/ML 3 ML VIAL SUBCUT ×4 (07:39→21:54)
[2023-12-27] MEDS: Metoprolol Tartrate 50 MG TABLET PO ×2 (07:40→20:49)
[2023-12-27] MEDS: polyethylene glycoL 3350 17 GM POWD.PACK PO (07:40)
[2023-12-27] MEDS: Sennosides/Docusate Sodium TABLET 2 TAB PO ×2 (07:41→20:49)
[2023-12-27] MEDS: Phenazopyridine HCL 200 MG TABLET PO ×3 (07:41→16:45)
[2023-12-27] MEDS: amLODIPine Besylate 5 MG TABLET PO (07:41)
[2023-12-27] MEDS: Valsartan 80 MG TABLET PO (07:41)
[2023-12-27 08:02] LABS: Glucose, Whole Blood 178 mg/dL (60-115)
[2023-12-27 08:12] LABS: Anion Gap 19 (12-20); Blood Urea Nitrogen 10 mg/dL (9-16); Calcium 9.2 mg/dL (8.4-10.2); Carbon Dioxide 19 mmol/L (22-29); Chloride 104 mmol/L (96-108); Creatinine Clr Calc Pharmacy 75.4; Estimated Glomerular Filt Rate > 60; Glucose Random 188 mg/dL (60-115); Magnesium 1.7 mg/dL (1.6-2.6); Potassium 3.6 mmol/L (3.3-5.1); Sodium 138 mmol/L (135-145)
--- NOTE | 2023-12-27 08:36 | PC.NURSE ---
IV contrast consent signed and faxed to CT department, and in chart. Plan transfer to [facility].
--- NOTE | 2023-12-27 08:39 | PC.NURSE ---
Clin Supp and Charge for M/T notified in need of transfer for patient.
--- NOTE | 2023-12-27 09:31 | PC.NURSE ---
Pt trasnfered to [facility], nurse notified via [email or web address] asked to get patients Vs upon transfer to the unit, pt set up in room and is comfortable .
[2023-12-27 09:44] VITALS: BP 136/74; PULSE 108; RESP 20; TEMP 36.2; O2SAT 96
--- NOTE | 2023-12-27 10:41 | PC.NURSE ---
0811-Pt placed on tele pack- HR 130's. Pt denies chest pain, SOB, palpitations. Report called to Maria Dolores on [facility] tele. Pt transported to room 470 via bed. [id number]- Message left on daughter Yessy Castellano voice mail that pt moved to room 470 and to return call to this RN if any questions
[2023-12-27 11:15] LABS: Adenovirus PCR Not Detected (Not Detect.); Bordetella parapertussis PCR Not Detected (Not Detect.); Bordetella pertussis PCR Not Detected (Not Detect.); Chlamydia pneumoniae PCR Not Detected (Not Detect.); Coronavirus 229E PCR Not Detected (Not Detect.); Coronavirus HKU1 PCR Not Detected (Not Detect.); Coronavirus NL63 PCR Not Detected (Not Detect.); Coronavirus OC43 PCR Not Detected (Not Detect.); Human metapneumovirus PCR Not Detected (Not Detect.); Influenza A PCR Not Detected (Not Detect.); Influenza B PCR Not Detected (Not Detect.); Mycoplasma pneumoniae PCR Not Detected (Not Detect.); Parainfluenza 1 PCR Not Detected (Not Detect.); Parainfluenza 2 PCR Not Detected (Not Detect.); Parainfluenza 3 PCR Not Detected (Not Detect.); Parainfluenza 4 PCR Not Detected (Not Detect.); RSV PCR Not Detected (Not Detect.); Rhino/Enterovirus PCR Not Detected (Not Detect.)
[2023-12-27 11:36] LABS: SARS-CoV-2 PCR Not Detected (Not Detect.)
[2023-12-27 12:00] VITALS: BP 171/86; PULSE 124; RESP 20; TEMP 36.1; O2SAT 92
[2023-12-27] MEDS: iohexoL 350 MG/ML 100 ML INFUS..BTL IV (12:17)
[2023-12-27 12:33] LABS: Glucose, Whole Blood 162 mg/dL (60-115)
[2023-12-27] MEDS: Acetaminophen 325 MG TABLET 650 MG PO ×2 (12:42→20:50)
--- NOTE | 2023-12-27 13:21 | P.PNIM_ITS ---
Subjective Subjective Date of Service: 12/27/23 Interval History: afebrile but still tachycardic c/o some dysuria denies dyspnea some mild dry cough no abd pain no flank pain no diarrhea Review of Systems Review of Systems: Yes all other systems are reviewed and are negative Physical Exam 2 Vital Signs: Vital Signs: Last Vital Signs Temp 97 F 12/27/23 12:00 Pulse 124 H 12/27/23 12:00 Resp 20 12/27/23 12:00 BP 171/86 H 12/27/23 12:00 Pulse Ox 92 12/27/23 12:00 O2 Del Method Room Air 12/27/23 12:00 O2 Flow Rate 98 12/22/23 01:33 BMI result Body Mass Index 30.0 Gen: in no acute distress but very tired HEENT: sclera anicteric, dry mucus membranes Neck: supple Lungs: clear to auscultation bilaterally Heart: regular, tachycardic, no murmurs Abd: soft, non-tender, non-distended Ext: LUE with hand/wrist/forearm swelling, tenderness Skin: warm/well-perfused Neuro: alert and oriented x3, no focal findings Psych: appropriate affect Objective Data Active Medications Acetaminophen (Acetaminophen 325 Mg Tablet) 650 mg PO Q6H PRN PRN Reason: Pain, Mild (Pain Scale 1-3) Last Admin: 12/27/23 12:42 Dose: 650 mg Documented By: AUTUMN Albuterol Sulfate (Albuterol Sulfate 90 Mcg 8 Gm Inhaler) 2 puff INHALE Q4H PRN PRN Reason: Shortness Of Breath Or Wheezing Amlodipine Besylate (Amlodipine Besylate 5 Mg Tablet) 5 mg PO DAILY SHANE; Protocol Last Admin: 12/27/23 07:41 Dose: 5 mg Documented By: MARTHA Atorvastatin Calcium (Atorvastatin Calcium 10 Mg Tablet) 10 mg PO BEDTIME SHANE Last Admin: 12/26/23 19:57 Dose: 10 mg Documented By: TARKIMMY Baclofen (Baclofen 10 Mg Tablet) 10 mg PO DAILY PRN PRN Reason: Muscle Spasm Last Admin: 12/25/23 13:28 Dose: 10 mg Documented By: JESSENIA Clonazepam (Clonazepam 0.5 Mg Tablet) 0.5 mg PO BID PRN PRN Reason: Anxiety Last Admin: 12/26/23 19:55 Dose: 0.5 mg Documented By: INDIA Enoxaparin Sodium (Enoxaparin Sodium 40 Mg/0.4 Ml Syringe) 40 mg SUBCUT 0300 [facility] Last Admin: 12/27/23 03:06 Dose: 40 mg Documented By: INDIA Glucose (Glucose Gel 15 Gm Gel..Gram.) 15 gm PO Q15M PRN; Protocol PRN Reason: per Hypoglycemia Standing Ord. Dextrose (D10) 250 mls @ 750 mls/hr IV Q15M PRN; Protocol PRN Reason: per Hypoglycemia Standing Ord. Ceftriaxone Sodium 2 gm/ (Sodium Chloride) 50 mls @ 100 mls/hr IV Q24H [facility] Last Infusion: 12/27/23 03:44 Dose: Infused Documented By: INDIA Sodium Chloride (Ns) 1,000 mls @ 100 mls/hr IVCONT .Q10H [facility] Last Admin: 12/27/23 05:25 Dose: 100 mls/hr Documented By: INDIA Insulin Human Lispro (Insulin Lispro 100 Unit/Ml 3 Ml Vial) 0 unit SUBCUT QIDACHS [facility]; Protocol Last Admin: 12/27/23 12:43 Dose: 4 unit Documented By: AUTUMN Melatonin (Melatonin 3 Mg Tablet) 6 mg PO BEDTIME PRN PRN Reason: Insomnia Last Admin: 12/22/23 21:14 Dose: 6 mg Documented By: JULIO CÉSAR Metoprolol Tartrate (Metoprolol Tartrate 50 Mg Tablet) 50 mg PO BID [facility]; Protocol Last Admin: 12/27/23 07:40 Dose: 50 mg Documented By: MARTHA Pt Own (Quetiapine 400 Mg Tablet Extended Release 24 Hr) 400 mg PO BEDTIME [facility] Last Admin: 12/26/23 22:18 Dose: 400 mg Documented By: INDIA Ondansetron HCl (Ondansetron Hcl 4 Mg/2 Ml Vial) 4 mg IVPUSH Q8H PRN PRN Reason: Nausea and Vomiting Oxycodone HCl (Oxycodone Hcl Immed Release 5 Mg Tablet) 5 mg PO Q4H PRN PRN Reason: severe pain Last Admin: 12/27/23 10:05 Dose: 5 mg Documented By: AUTUMN Phenazopyridine HCl (Phenazopyridine Hcl 200 Mg Tablet) 200 mg PO TIDWM [facility] Stop: 12/28/23 08:01 Last Admin: 12/27/23 12:42 Dose: 200 mg Documented By: AUTUMN Polyethylene Glycol (Polyethylene Glycol 3350 17 Gm Powd.Pack) 17 gm PO DAILY [facility] Last Admin: 12/27/23 07:40 Dose: 17 gm Documented By: MARTHA Senna/Docusate Sodium (Sennosides/Docusate Sodium Tablet) 2 tab PO BID [facility] Last Admin: 12/27/23 07:41 Dose: 2 tab Documented By: MARTHA Sodium Chloride (0.9 % Sodium Chloride Flush 3 Ml Syringe) 3 ml IVFLUSH QSHIFT [facility] Last Admin: 12/27/23 07:30 Dose: Not Given Documented By: MARTHA Non-Admin Reason: IV Running Trolamine Salicylate (Trolamine Salicylate 10 % Cream 85 Gm Tube) 1 appl TOPICAL BID PRN; Protocol PRN Reason: mid back Last Admin: 12/26/23 09:19 Dose: 1 appl Documented By: JESSENIA Valsartan (Valsartan 80 Mg Tablet) 80 mg PO DAILY [facility]; Protocol Last Admin: 12/27/23 07:41 Dose: 80 mg Documented By: MARTHA Zolpidem Tartrate (Zolpidem Tartrate 5 Mg Tablet) 5 mg PO BEDTIME PRN PRN Reason: Insomnia Last Admin: 12/26/23 22:10 Dose: 5 mg Documented By: INDIA Labs 12/27/23 06:05 12/27/23 07:36 Labs: Laboratory Results - last 24 hr 12/26/23 12/26/23 12/27/23 16:33 20:07 06:05 MCV 85.5 MCH 28.5 MCHC 33.3 RDW 14.9 Plt Count 252 MPV 10.8 Absolute Nucleated RBC 0.000 Nucleated RBC % (auto) 0.0 ESR 109 H Anion Gap Estim Creat Clear Calc Estimated GFR POC Glucose 210 H 244 H Random Glucose Calcium Magnesium Respiratory Panel Srinivasan Adenovirus (Rapid PCR) B.pert (TEM-PCR) B.parapertussis DNA PCR C. pneumoniae DNA (PCR) Coronavirus OC43 (PCR) Coronavirus HKU1 (PCR) Coronavirus 229E (PCR) Coronavirus NL63 (PCR) Human Metapneumovir PCR Influenza A (RT-PCR) Influenza B (RT-PCR) M. pneumoniae (PCR) Parainfluenza 1 (PCR) Parainfluenza 2 (PCR) Parainfluenza 3 (PCR) Parainfluenza 4 (PCR) RSV (PCR) Entero/Rhino (PCR) SARS-CoV-2 RNA (RT-PCR) 12/27/23 12/27/23 12/27/23 07:19 07:36 08:50 MCV MCH MCHC RDW Plt Count MPV Absolute Nucleated RBC Nucleated RBC % (auto) ESR Anion Gap 19 Estim Creat Clear Calc 75.4 Estimated GFR > 60 POC Glucose 178 H Random Glucose 188 H Calcium 9.2 Magnesium 1.7 Respiratory Panel Srinivasan See Note Adenovirus (Rapid PCR) Not Detected B.pert (TEM-PCR) Not Detected B.parapertussis DNA PCR Not Detected C. pneumoniae DNA (PCR) Not Detected Coronavirus OC43 (PCR) Not Detected Coronavirus HKU1 (PCR) Not Detected Coronavirus 229E (PCR) Not Detected Coronavirus NL63 (PCR) Not Detected Human Metapneumovir PCR Not Detected Influenza A (RT-PCR) Not Detected Influenza B (RT-PCR) Not Detected M. pneumoniae (PCR) Not Detected Parainfluenza 1 (PCR) Not Detected Parainfluenza 2 (PCR) Not Detected Parainfluenza 3 (PCR) Not Detected Parainfluenza 4 (PCR) Not Detected RSV (PCR) Not Detected Entero/Rhino (PCR) Not Detected SARS-CoV-2 RNA (RT-PCR) Not Detected 12/27/23 12:30 MCV MCH MCHC RDW Plt Count MPV Absolute Nucleated RBC Nucleated RBC % (auto) ESR Anion Gap Estim Creat Clear Calc Estimated GFR POC Glucose 162 H Random Glucose Calcium Magnesium Respiratory Panel Srinivasan Adenovirus (Rapid PCR) B.pert (TEM-PCR) B.parapertussis DNA PCR C. pneumoniae DNA (PCR) Coronavirus OC43 (PCR) Coronavirus HKU1 (PCR) Coronavirus 229E (PCR) Coronavirus NL63 (PCR) Human Metapneumovir PCR Influenza A (RT-PCR) Influenza B (RT-PCR) M. pneumoniae (PCR) Parainfluenza 1 (PCR) Parainfluenza 2 (PCR) Parainfluenza 3 (PCR) Parainfluenza 4 (PCR) RSV (PCR) Entero/Rhino (PCR) SARS-CoV-2 RNA (RT-PCR) Impressions Hand/Wrist X-Ray 12/26/23 12:19 IMPRESSION: 1. Osteoarthritis of the left wrist 2. Chondrocalcinosis. Venous Duplex 12/26/23 14:15 IMPRESSION: 1. No evidence of deep venous thrombosis involving the left upper extremity. 2. Ulnar veins not well evaluated. Chest X-Ray 12/27/23 09:05 IMPRESSION: Opacity left upper lobe probably a summation of bone and vascular shadows, cannot rule out underlying infiltrates or lung nodule. Consider correlation with follow-up PA and lateral views. Microbiology Microbiology Results: Microbiology 12/26/23 06:45 Blood Culture - Preliminary Blood - Venous No growth after 24 hours. 12/26/23 06:45 Blood Culture - Preliminary Blood - Venous No growth after 24 hours. Assessment and Plan (1) Acute renal failure: Status: Acute (2) UTI (urinary tract infection): Status: Acute (3) Sepsis: Status: Acute Plan d6 68yo F with DM2, HTN, HLD, mood disorder, insomnia presenting with dysuria, admitted for sepsis with UTI with E. coli bacteremia sepsis due to UTI/R-sided pyelonephritis/E. coli bacteremia - fletcher-sensitive E. coli, on ceftriaxone 12/21-, repeat BCx 12/25 negative to date, likely total 14d antibiotic therapy - given worsening WBCs + tachycardia, will check CXR 2V/lat and CT A/P to search for other sources of infection; RVP negative; also consult ID; also check D- dimer toxic encephalopathy - due to gabapentin, discontinued due to excessive somnolence prerenal SHARON - resolved but appears dry; continue NS hypoK hypoMg - repleted LUE swelling/pain - likely due to arthritis. removable splint + OT consult; APAP + oxycodone prn DM2 with hyperglycemia - tammy-dose lispro HTN - continue metoprolol + amlodipine + valsartan mood disorder - continue quetiapine, clonazepam, zolpidem VTE ppx - LMWH dispo - PT eval pending In my clinical judgment, the patient requires continued inpatient hospitalization for the following reasons: IV ABX, IV fluids Family updated at bedside Total time managing care of this patient today: 45 minutes. Quality Stroke Does the patient have a stroke diagnosis?: No VTE Prior VTE?: No VTE Risk Level:: Medical - moderate - high VTE Device Contraindication: Treatment Not Indicated VTE Drug Contraindication: N/A - Med Ordered
[2023-12-27 13:48] LABS: D Dimer High Sensitivity 835 NG/ML
--- NOTE | 2023-12-27 15:46 | MHC.CM.PN ---
EMR reviewed and per MD rounds, pt is not medically cleared for discharge due to management of UTI, pt receiving IV fluids and IV abx.
[2023-12-27 15:59] VITALS: BP 170/82; PULSE 121; RESP 20; TEMP 37.7; O2SAT 91
[2023-12-27 16:36] LABS: Glucose, Whole Blood 234 mg/dL (60-115)
[2023-12-27 19:13] LABS: Alanine Aminotransferase 63 U/L (0-31); Albumin Level 3.2 g/dL (3.5-5.0); Alkaline Phosphatase 127 U/L (39-117); Aspartate Amino Transferase 49 U/L (5-31); Bilirubin Direct 0.3 mg/dL (0.0-0.5); Bilirubin Total 0.4 mg/dL (0.0-1.0); Lactate Dehydrogenase 467 U/L (122-220); Total Protein 7.2 g/dL (6.5-8.0)
[2023-12-27 20:00] VITALS: BP 183/87; PULSE 136; RESP 20; TEMP 38.3; O2SAT 92
[2023-12-27] MEDS: Atorvastatin Calcium 10 MG TABLET PO (20:49)
[2023-12-27 21:53] LABS: Glucose, Whole Blood 199 mg/dL (60-115)
[2023-12-28] VITALS (8 sets, daily range): BP systolic 138–175; BP diastolic 68–96; PULSE 54–134; RESP 18–20; TEMP 36.2–36.8; O2SAT 90–92
[2023-12-28] MEDS: cefTRIAXone sodium 2 GM in 0.9 % Sodium Chloride 50 ML IV (01:58)
[2023-12-28] MEDS: 0.9 % Sodium Chloride 1,000 ML 100 ML IVCONT ×2 (01:58→23:14)
[2023-12-28] MEDS: Enoxaparin Sodium 40 MG/0.4 ML SYRINGE SUBCUT (03:58)
[2023-12-28] MEDS: oxyCODONE HCl Immed Release 5 MG TABLET PO (04:04)
[2023-12-28 07:17] LABS: Hematocrit 26.3 % (37.0-47.0); Hemoglobin 8.9 g/dl (12.0-16.0); Mean Corpuscular HGB Conc 33.8 g/dl (31.0-35.0); Mean Corpuscular Hemoglobin 28.7 pg (27.0-33.0); Mean Corpuscular Volume 84.8 fL (80.0-98.0); Mean Platelet Volume 9.4 fL (9.4-12.3); Platelet Count 362 X10*3/uL (160-400); White Blood Count 18.3 X10*3/uL (4.8-10.8)
[2023-12-28 07:21] LABS: Anion Gap 16 (12-20); Blood Urea Nitrogen 9 mg/dL (9-16); C Reactive Protein 38.29 mg/dL (< or = 0.50); Calcium 9.1 mg/dL (8.4-10.2); Carbon Dioxide 21 mmol/L (22-29); Chloride 104 mmol/L (96-108); Creatinine Clr Calc Pharmacy 78.5; Estimated Glomerular Filt Rate > 60; Glucose Random 234 mg/dL (60-115); Potassium 3.2 mmol/L (3.3-5.1); Sodium 138 mmol/L (135-145)
[2023-12-28 07:54] LABS: Glucose, Whole Blood 225 mg/dL (60-115)
[2023-12-28] MEDS: polyethylene glycoL 3350 17 GM POWD.PACK PO (08:03)
[2023-12-28] MEDS: Valsartan 80 MG TABLET PO (08:03)
[2023-12-28] MEDS: Sennosides/Docusate Sodium TABLET 2 TAB PO ×2 (08:04→20:13)
[2023-12-28] MEDS: amLODIPine Besylate 5 MG TABLET PO (08:04)
[2023-12-28] MEDS: Metoprolol Tartrate 50 MG TABLET PO ×2 (08:04→20:14)
[2023-12-28] MEDS: Phenazopyridine HCL 200 MG TABLET PO (08:04)
[2023-12-28] MEDS: Insulin Lispro 100 UNIT/ML 3 ML VIAL SUBCUT ×3 (08:05→21:36)
[2023-12-28] MEDS: Acetaminophen 325 MG TABLET 650 MG PO ×2 (08:07→18:06)
--- NOTE | 2023-12-28 10:54 | P.PNIM_ITS ---
Subjective Subjective Date of Service: 12/28/23 Interval History: c/o L wrist pain, a little posterior neck pain no fever no dysuria no abd pain WBCs coming down a little Review of Systems Review of Systems: Yes all other systems are reviewed and are negative Physical Exam 2 Vital Signs: Vital Signs: Last Vital Signs Temp 97.1 F 12/28/23 07:59 Pulse 134 H 12/28/23 08:04 Resp 20 12/28/23 07:59 BP 168/96 H 12/28/23 08:04 Pulse Ox 92 12/28/23 07:59 O2 Del Method Room Air 12/28/23 07:59 O2 Flow Rate 2 12/28/23 04:00 BMI result Body Mass Index 30.0 Gen: in no acute distress HEENT: sclera anicteric, dry mucus membranes Neck: supple Lungs: clear to auscultation bilaterally Heart: regular, tachycardic, no murmurs Abd: soft, non-tender, non-distended Ext: LUE with hand/wrist/forearm swelling, tenderness Skin: warm/well-perfused Neuro: alert and oriented x3, no focal findings Psych: appropriate affect Objective Data Active Medications Acetaminophen (Acetaminophen 325 Mg Tablet) 650 mg PO Q6H PRN PRN Reason: Pain, Mild (Pain Scale 1-3) Last Admin: 12/28/23 08:07 Dose: 650 mg Documented By: AUTUMN Albuterol Sulfate (Albuterol Sulfate 90 Mcg 8 Gm Inhaler) 2 puff INHALE Q4H PRN PRN Reason: Shortness Of Breath Or Wheezing Amlodipine Besylate (Amlodipine Besylate 5 Mg Tablet) 5 mg PO DAILY SHANE; Protocol Last Admin: 12/28/23 08:04 Dose: 5 mg Documented By: AUTUMN Atorvastatin Calcium (Atorvastatin Calcium 10 Mg Tablet) 10 mg PO BEDTIME SHANE Last Admin: 12/27/23 20:49 Dose: 10 mg Documented By: ERMIAS Baclofen (Baclofen 10 Mg Tablet) 10 mg PO DAILY PRN PRN Reason: Muscle Spasm Last Admin: 12/25/23 13:28 Dose: 10 mg Documented By: JESSENIA Clonazepam (Clonazepam 0.5 Mg Tablet) 0.5 mg PO BID PRN PRN Reason: Anxiety Last Admin: 12/26/23 19:55 Dose: 0.5 mg Documented By: INDIA Enoxaparin Sodium (Enoxaparin Sodium 40 Mg/0.4 Ml Syringe) 40 mg SUBCUT 0300 [facility] Last Admin: 12/28/23 03:58 Dose: 40 mg Documented By: ERMIAS Glucose (Glucose Gel 15 Gm Gel..Gram.) 15 gm PO Q15M PRN; Protocol PRN Reason: per Hypoglycemia Standing Ord. Dextrose (D10) 250 mls @ 750 mls/hr IV Q15M PRN; Protocol PRN Reason: per Hypoglycemia Standing Ord. Ceftriaxone Sodium 2 gm/ (Sodium Chloride) 50 mls @ 100 mls/hr IV Q24H [facility] Last Infusion: 12/28/23 02:40 Dose: Infused Documented By: ERMIAS Sodium Chloride (Ns) 1,000 mls @ 100 mls/hr IVCONT .Q10H [facility] Last Admin: 12/28/23 01:58 Dose: 100 mls/hr Documented By: ERMIAS Insulin Human Lispro (Insulin Lispro 100 Unit/Ml 3 Ml Vial) 0 unit SUBCUT QIDACHS [facility]; Protocol Last Admin: 12/28/23 08:05 Dose: 6 unit Documented By: AUTUMN Melatonin (Melatonin 3 Mg Tablet) 6 mg PO BEDTIME PRN PRN Reason: Insomnia Last Admin: 12/22/23 21:14 Dose: 6 mg Documented By: JULIO CÉSAR Metoprolol Tartrate (Metoprolol Tartrate 50 Mg Tablet) 50 mg PO BID [facility]; Protocol Last Admin: 12/28/23 08:04 Dose: 50 mg Documented By: AUTUMN Pt Own (Quetiapine 400 Mg Tablet Extended Release 24 Hr) 400 mg PO BEDTIME [facility] Last Admin: 12/27/23 21:38 Dose: 400 mg Documented By: ERMIAS Ondansetron HCl (Ondansetron Hcl 4 Mg/2 Ml Vial) 4 mg IVPUSH Q8H PRN PRN Reason: Nausea and Vomiting Oxycodone HCl (Oxycodone Hcl Immed Release 5 Mg Tablet) 5 mg PO Q4H PRN PRN Reason: severe pain Last Admin: 12/28/23 04:04 Dose: 5 mg Documented By: ERMIAS Polyethylene Glycol (Polyethylene Glycol 3350 17 Gm Powd.Pack) 17 gm PO DAILY [facility] Last Admin: 12/28/23 08:03 Dose: 17 gm Documented By: AUTUMN Senna/Docusate Sodium (Sennosides/Docusate Sodium Tablet) 2 tab PO BID [facility] Last Admin: 12/28/23 08:04 Dose: 2 tab Documented By: AUTUMN Sodium Chloride (0.9 % Sodium Chloride Flush 3 Ml Syringe) 3 ml IVFLUSH QSHIFT [facility] Last Admin: 12/28/23 08:05 Dose: Not Given Documented By: AUTUMN Non-Admin Reason: IV Running Trolamine Salicylate (Trolamine Salicylate 10 % Cream 85 Gm Tube) 1 appl TOPICAL BID PRN; Protocol PRN Reason: mid back Last Admin: 12/26/23 09:19 Dose: 1 appl Documented By: JESSENIA Valsartan (Valsartan 80 Mg Tablet) 80 mg PO DAILY [facility]; Protocol Last Admin: 12/28/23 08:03 Dose: 80 mg Documented By: AUTUMN Zolpidem Tartrate (Zolpidem Tartrate 5 Mg Tablet) 5 mg PO BEDTIME PRN PRN Reason: Insomnia Last Admin: 12/26/23 22:10 Dose: 5 mg Documented By: TARANO Labs 12/28/23 06:40 12/28/23 06:40 Labs: Laboratory Results - last 24 hr 12/27/23 12/27/23 12/27/23 07:36 08:50 12:30 MCV MCH MCHC RDW Plt Count MPV Absolute Nucleated RBC Nucleated RBC % (auto) D-Dimer High Sensitivty Anion Gap Estim Creat Clear Calc Estimated GFR POC Glucose 162 H Random Glucose Calcium Total Bilirubin 0.4 Direct Bilirubin 0.3 AST 49 H ALT 63 H Alkaline Phosphatase 127 H Lactate Dehydrogenase 467 H C-Reactive Protein Total Protein 7.2 Albumin 3.2 L Procalcitonin 2.20 Respiratory Panel Srinivasan See Note Adenovirus (Rapid PCR) Not Detected B.pert (TEM-PCR) Not Detected B.parapertussis DNA PCR Not Detected C. pneumoniae DNA (PCR) Not Detected Coronavirus OC43 (PCR) Not Detected Coronavirus HKU1 (PCR) Not Detected Coronavirus 229E (PCR) Not Detected Coronavirus NL63 (PCR) Not Detected Human Metapneumovir PCR Not Detected Influenza A (RT-PCR) Not Detected Influenza B (RT-PCR) Not Detected M. pneumoniae (PCR) Not Detected Parainfluenza 1 (PCR) Not Detected Parainfluenza 2 (PCR) Not Detected Parainfluenza 3 (PCR) Not Detected Parainfluenza 4 (PCR) Not Detected RSV (PCR) Not Detected Entero/Rhino (PCR) Not Detected SARS-CoV-2 RNA (RT-PCR) Not Detected 12/27/23 12/27/23 12/27/23 13:29 16:33 21:32 MCV MCH MCHC RDW Plt Count MPV Absolute Nucleated RBC Nucleated RBC % (auto) D-Dimer High Sensitivty 835 Anion Gap Estim Creat Clear Calc Estimated GFR POC Glucose 234 H 199 H Random Glucose Calcium Total Bilirubin Direct Bilirubin AST ALT Alkaline Phosphatase Lactate Dehydrogenase C-Reactive Protein Total Protein Albumin Procalcitonin Respiratory Panel Srinivasan Adenovirus (Rapid PCR) B.pert (TEM-PCR) B.parapertussis DNA PCR C. pneumoniae DNA (PCR) Coronavirus OC43 (PCR) Coronavirus HKU1 (PCR) Coronavirus 229E (PCR) Coronavirus NL63 (PCR) Human Metapneumovir PCR Influenza A (RT-PCR) Influenza B (RT-PCR) M. pneumoniae (PCR) Parainfluenza 1 (PCR) Parainfluenza 2 (PCR) Parainfluenza 3 (PCR) Parainfluenza 4 (PCR) RSV (PCR) Entero/Rhino (PCR) SARS-CoV-2 RNA (RT-PCR) 12/28/23 12/28/23 06:40 07:51 MCV 84.8 MCH 28.7 MCHC 33.8 RDW 15.0 Plt Count 362 D MPV 9.4 Absolute Nucleated RBC 0.000 Nucleated RBC % (auto) 0.0 D-Dimer High Sensitivty Anion Gap 16 Estim Creat Clear Calc 78.5 Estimated GFR > 60 POC Glucose 225 H Random Glucose 234 H Calcium 9.1 Total Bilirubin Direct Bilirubin AST ALT Alkaline Phosphatase Lactate Dehydrogenase C-Reactive Protein 38.29 H Total Protein Albumin Procalcitonin Respiratory Panel Srinivasan Adenovirus (Rapid PCR) B.pert (TEM-PCR) B.parapertussis DNA PCR C. pneumoniae DNA (PCR) Coronavirus OC43 (PCR) Coronavirus HKU1 (PCR) Coronavirus 229E (PCR) Coronavirus NL63 (PCR) Human Metapneumovir PCR Influenza A (RT-PCR) Influenza B (RT-PCR) M. pneumoniae (PCR) Parainfluenza 1 (PCR) Parainfluenza 2 (PCR) Parainfluenza 3 (PCR) Parainfluenza 4 (PCR) RSV (PCR) Entero/Rhino (PCR) SARS-CoV-2 RNA (RT-PCR) Microbiology Microbiology Results: Microbiology 12/26/23 06:45 Blood Culture - Preliminary Blood - Venous No growth after 48 hours. 12/26/23 06:45 Blood Culture - Preliminary Blood - Venous No growth after 48 hours. Assessment and Plan (1) Acute renal failure: Status: Acute (2) UTI (urinary tract infection): Status: Acute (3) Sepsis: Status: Acute Plan d7 68yo F with DM2, HTN, HLD, mood disorder, insomnia presenting with dysuria, admitted for sepsis with UTI with E. coli bacteremia sepsis due to UTI/R-sided pyelonephritis/E. coli bacteremia - fletcher-sensitive E. coli, on ceftriaxone 12/21-, repeat BCx 12/25 negative to date, likely total 14d antibiotic therapy - given worsening WBCs + tachycardia + high CRP, searching for other sources of infection. RVP negative, repeat CT A/P unrevelaing. ID consult pending. Will obtain NM WBC scan; further imaging per results. Will send SUNSHINE/sFLCR toxic encephalopathy - due to gabapentin, discontinued due to excessive somnolence prerenal SHARON - resolved after fluid repletion hypoK hypoMg - repleted LUE swelling/pain - likely due to arthritis. removable splint + OT consult; APAP + oxycodone prn DM2 with hyperglycemia - tammy-dose lispro HTN - continue metoprolol + amlodipine + valsartan mood disorder - continue quetiapine, clonazepam, zolpidem VTE ppx - LMWH dispo - PT eval pending In my clinical judgment, the patient requires continued inpatient hospitalization for the following reasons: IV ABX, IV fluids Total time managing care of this patient today: 45 minutes. Quality Stroke Does the patient have a stroke diagnosis?: No VTE Prior VTE?: No VTE Risk Level:: Medical - moderate - high VTE Device Contraindication: Treatment Not Indicated VTE Drug Contraindication: N/A - Med Ordered
[2023-12-28 11:42] LABS: Glucose, Whole Blood 215 mg/dL (60-115)
--- NOTE | 2023-12-28 14:08 | P.CNID_ITS ---
History of Present Illness Data of Consult Service Date: 12/28/23 Requesting physician: Jovan Lemos Primary Care Provider: Malu Fermin MD HPI Reason for consult: sepsis ,E coli She presents with temperature to 100.9 as well as tachycardia. She has E coli bacteremia. She has no obstruction seen urinary and no liver abscess. [facility] Past Medical History Medical History Mood disorder Hypertension Non-insulin dependent type 2 diabetes mellitus Mixed hyperlipidemia Family History Family history: reviewed and not pertinent Social History Social History Household Members: None Housing: Apartment Do you presently have visiting nurse or other home services: No Patient Tobacco Use Status: Tobacco use Unknown Smoked in Last 30 Days: No Use of substances other than those prescribed or required for medical reasons: No Currently Displaying Signs/Symptoms of Drug Intoxication Withdrawal: No Have you been hit, kicked, punched, or otherwise hurt by someone within the past year? If so, by whom?: No Do you feel safe in your current relationship?: No Current Relationship Is there a partner from a previous relationship who is making you feel unsafe now?: No Are you made to feel afraid or neglected: No Advance Directives: No Advance Directives Information Provided: Yes Do you have a plan to hurt others: No Plan Recently lost weight without trying: No Eating poorly because of decreased appetite: No Nutrition Risks: No Nutritional Risk Patient : No : No Poor oral hygiene: No service: No Meds Allergies Allergy/AdvReac Type Severity Reaction Status Date / Time codeine Allergy Itching Verified 12/21/23 23:20 morphine Allergy Itching Verified 12/21/23 23:20 trazodone Allergy Hallucinati Verified 12/21/23 23:20 ons Active Medications: Current Medications Acetaminophen (Acetaminophen 325 Mg Tablet) 650 mg PO Q6H PRN PRN Reason: Pain, Mild (Pain Scale 1-3) Last Admin: 12/28/23 08:07 Dose: 650 mg Albuterol Sulfate (Albuterol Sulfate 90 Mcg 8 Gm Inhaler) 2 puff INHALE Q4H PRN PRN Reason: Shortness Of Breath Or Wheezing Amlodipine Besylate (Amlodipine Besylate 5 Mg Tablet) 5 mg PO DAILY SHANE; Protocol Last Admin: 12/28/23 08:04 Dose: 5 mg Atorvastatin Calcium (Atorvastatin Calcium 10 Mg Tablet) 10 mg PO BEDTIME SHANE Last Admin: 12/27/23 20:49 Dose: 10 mg Baclofen (Baclofen 10 Mg Tablet) 10 mg PO DAILY PRN PRN Reason: Muscle Spasm Last Admin: 12/25/23 13:28 Dose: 10 mg Clonazepam (Clonazepam 0.5 Mg Tablet) 0.5 mg PO BID PRN PRN Reason: Anxiety Last Admin: 12/26/23 19:55 Dose: 0.5 mg Enoxaparin Sodium (Enoxaparin Sodium 40 Mg/0.4 Ml Syringe) 40 mg SUBCUT 0300 [facility] Last Admin: 12/28/23 03:58 Dose: 40 mg Glucose (Glucose Gel 15 Gm Gel..Gram.) 15 gm PO Q15M PRN; Protocol PRN Reason: per Hypoglycemia Standing Ord. Dextrose (D10) 250 mls @ 750 mls/hr IV Q15M PRN; Protocol PRN Reason: per Hypoglycemia Standing Ord. Ceftriaxone Sodium 2 gm/ (Sodium Chloride) 50 mls @ 100 mls/hr IV Q24H [facility] Last Infusion: 12/28/23 02:40 Dose: Infused Sodium Chloride (Ns) 1,000 mls @ 100 mls/hr IVCONT .Q10H [facility] Last Infusion: 12/28/23 12:54 Dose: Infused Insulin Human Lispro (Insulin Lispro 100 Unit/Ml 3 Ml Vial) 0 unit SUBCUT QIDACHS [facility]; Protocol Last Admin: 12/28/23 12:22 Dose: 6 unit Melatonin (Melatonin 3 Mg Tablet) 6 mg PO BEDTIME PRN PRN Reason: Insomnia Last Admin: 12/22/23 21:14 Dose: 6 mg Metoprolol Tartrate (Metoprolol Tartrate 50 Mg Tablet) 50 mg PO BID [facility]; Protocol Last Admin: 12/28/23 08:04 Dose: 50 mg Pt Own (Quetiapine 400 Mg Tablet Extended Release 24 Hr) 400 mg PO BEDTIME [facility] Last Admin: 12/27/23 21:38 Dose: 400 mg Ondansetron HCl (Ondansetron Hcl 4 Mg/2 Ml Vial) 4 mg IVPUSH Q8H PRN PRN Reason: Nausea and Vomiting Oxycodone HCl (Oxycodone Hcl Immed Release 5 Mg Tablet) 5 mg PO Q4H PRN PRN Reason: severe pain Last Admin: 12/28/23 04:04 Dose: 5 mg Polyethylene Glycol (Polyethylene Glycol 3350 17 Gm Powd.Pack) 17 gm PO DAILY [facility] Last Admin: 12/28/23 08:03 Dose: 17 gm Senna/Docusate Sodium (Sennosides/Docusate Sodium Tablet) 2 tab PO BID [facility] Last Admin: 12/28/23 08:04 Dose: 2 tab Sodium Chloride (0.9 % Sodium Chloride Flush 3 Ml Syringe) 3 ml IVFLUSH QSHIFT [facility] Last Admin: 12/28/23 08:05 Dose: Not Given Trolamine Salicylate (Trolamine Salicylate 10 % Cream 85 Gm Tube) 1 appl TOPICAL BID PRN; Protocol PRN Reason: mid back Last Admin: 12/26/23 09:19 Dose: 1 appl Valsartan (Valsartan 80 Mg Tablet) 80 mg PO DAILY [facility]; Protocol Last Admin: 12/28/23 08:03 Dose: 80 mg Zolpidem Tartrate (Zolpidem Tartrate 5 Mg Tablet) 5 mg PO BEDTIME PRN PRN Reason: Insomnia Last Admin: 12/26/23 22:10 Dose: 5 mg Home Medications ?Medication ?Instructions ?Recorded ?Confirmed ?Last Taken ?Type albuterol sulfate 90 mcg/actuation 2 puff inhalation Q4H PRN 12/22/23 12/22/23 Unknown History aerosol inhaler Shortness Of Breath Or Wheezing amlodipine 5 mg tablet 5 mg PO DAILY 12/22/23 12/22/23 Unknown History baclofen 10 mg tablet 10 mg PO DAILY PRN Muscle Spasm 12/22/23 12/22/23 Unknown History clonazepam 0.5 mg tablet 0.5 mg PO BID PRN Anxiety 12/22/23 12/22/23 Unknown History gabapentin 300 mg capsule 300 mg PO TID PRN Pain 12/22/23 12/22/23 Unknown History ibuprofen 800 mg tablet 800 mg PO DAILY PRN Pain 12/22/23 12/22/23 Unknown History metformin 1,000 mg tablet 1,000 mg PO BID 12/22/23 12/22/23 Unknown History metoprolol tartrate 50 mg tablet 50 mg PO BID 12/22/23 12/22/23 Unknown History quetiapine 400 mg tablet,extended 400 mg PO BEDTIME 12/22/23 12/22/23 Unknown History release 24 hr sennosides 8.6 mg-docusate sodium 2 tab PO BEDTIME PRN constipation 12/22/23 12/22/23 Unknown History 50 mg tablet (Senna Plus) simvastatin 20 mg tablet 20 mg PO BEDTIME 12/22/23 12/22/23 Unknown History valsartan 80 mg tablet 80 mg PO DAILY 12/22/23 12/22/23 Unknown History zolpidem 10 mg tablet 10 mg PO BEDTIME 12/22/23 12/22/23 Unknown History Physical Exam 2 Vital Signs: Vital Signs: Last Vital Signs Temp 97.6 F 12/28/23 11:46 Pulse 101 H 12/28/23 11:46 Resp 20 12/28/23 11:46 BP 138/75 12/28/23 11:46 Pulse Ox 92 12/28/23 11:46 O2 Del Method Room Air 12/28/23 11:46 O2 Flow Rate 2 12/28/23 04:00 BMI result Body Mass Index 30.0 Const: General: cooperative HEENT: Head: Yes normal to inspection Face and sinus: Yes normal facial exam Mouth: Normal oral and palatal mucosa present Teeth and gingiva: d entition normal Eyes: General: appearance normal, both eyes and all related structures P upils: Equal, round and reactive pupils present Resp: Effort & Inspection: normal respiratory effort Cardio: Rate: regular rate Rhythm: regular rhythm GI: Palpation (GI): Soft to palpation and nontender : General: Yes no CVA tenderness Back/Spine/Pelvis: Back: no CVA tenderness Skin: General skin exam: no rashes or lesions noted Neuro: General: moves all extremities Cranial nerves: Yes Equal, round and reactive pupils present Extrem: General: Yes normal to inspection Psych: Appearance: grossly normal Results Labs 12/28/23 06:40 12/28/23 06:40 Labs: Short CBC 12/28/23 Range/Units 06:40 WBC 18.3 H (4.8-10.8) X10*3/uL Hgb 8.9 L (12.0-16.0) g/dl Hct 26.3 L (37.0-47.0) % Plt Count 362 D (160-400) X10*3/uL BMP 12/28/23 06:40 Sodium 138 Potassium 3.2 L Chloride 104 Carbon Dioxide 21 L BUN 9 Creatinine 0.74 Calcium 9.1 Liver Function 12/27/23 Range/Units 07:36 Total Bilirubin 0.4 (0.0-1.0) mg/dL Direct Bilirubin 0.3 (0.0-0.5) mg/dL AST 49 H (5-31) U/L ALT 63 H (0-31) U/L Alkaline Phosphatase 127 H (39-117) U/L Albumin 3.2 L (3.5-5.0) g/dL Microbiology Microbiology Results: Microbiology 12/26/23 06:45 Blood - Venous Blood Culture - Preliminary No growth after 48 hours. 12/26/23 06:45 Blood - Venous Blood Culture - Preliminary No growth after 48 hours. 12/22/23 00:49 Blood - Venous Blood Culture - Final Escherichia coli 12/22/23 01:03 Blood - Venous Blood Culture - Final Escherichia coli 12/21/23 23:25 Urine clean catch - Clean Catch Midstream Urine Culture - Final Escherichia coli Assessment and Plan (1) Acute renal failure: Status: Acute (2) Sepsis: Status: Acute (3) Sepsis due to gram-negative UTI: Status: Acute Plan Sepsis with slow recovery and leukocytosis. Concern over developing aspiration or occult site of E coli Can check tagged WBC scan and if liver ducts thought to be source check MRCP. Continue Ceftriaxone probable 14 d total antibiotics.
[2023-12-28 16:11] LABS: Glucose, Whole Blood 219 mg/dL (60-115)
[2023-12-28] MEDS: clonazePAM 0.5 MG TABLET PO (18:06)
[2023-12-28] MEDS: Atorvastatin Calcium 10 MG TABLET PO (20:14)
[2023-12-28] MEDS: 0.9 % Sodium Chloride Flush 3 ML SYRINGE IVFLUSH (20:16)
[2023-12-28 21:32] LABS: Glucose, Whole Blood 231 mg/dL (60-115)
[2023-12-28] MEDS: HYDROmorphone HCl 1 MG/ML SYRINGE 0.8 MG IVPUSH (21:36)
[2023-12-28] MEDS: iohexoL 350 MG/ML 100 ML INFUS..BTL IV (22:09)
[2023-12-29] VITALS (8 sets, daily range): BP systolic 118–169; BP diastolic 68–85; PULSE 100–123; RESP 16–20; TEMP 36.4–36.8; O2SAT 92–95
[2023-12-29] MEDS: cefTRIAXone sodium 2 GM in 0.9 % Sodium Chloride 50 ML IV (01:57)
[2023-12-29] MEDS: Enoxaparin Sodium 40 MG/0.4 ML SYRINGE SUBCUT (03:38)
[2023-12-29] MEDS: Acetaminophen 325 MG TABLET 650 MG PO ×3 (03:52→19:59)
[2023-12-29 06:26] LABS: MANUAL DIFF FLAG NO
[2023-12-29 06:33] LABS: Basophils Percent Auto 0.3 % (0-2); Eosinophils Absolute Auto 0.1 X10*3/uL (0.0-0.4); Eosinophils Percent Auto 0.5 % (0-4); Hematocrit 24.3 % (37.0-47.0); Hemoglobin 8.3 g/dl (12.0-16.0); Imm Gran Abs Auto 0.16 X10*3/uL (0.00-0.03); Lymphocytes Absolute Auto 1.6 X10*3/uL (1.2-4.9); Lymphocytes Percent Auto 10.3 % (20-40); Mean Corpuscular HGB Conc 34.2 g/dl (31.0-35.0); Mean Corpuscular Hemoglobin 28.9 pg (27.0-33.0); Mean Corpuscular Volume 84.7 fL (80.0-98.0); Mean Platelet Volume 9.6 fL (9.4-12.3); Monocytes Absolute Auto 0.7 X10*3/uL (0.1-1.2); Monocytes Percent Auto 4.5 % (2-11); Neutrophils Absolute Auto 12.8 x10*3/uL (2.0-8.3); Neutrophils Percent Auto 83.4 % (45-73); Platelet Count 403 X10*3/uL (160-400); Red Blood Count 2.87 X10*6/uL (4.20-5.50); White Blood Count 15.3 X10*3/uL (4.8-10.8)
[2023-12-29 07:06] LABS: Alanine Aminotransferase 61 U/L (0-31); Albumin Level 2.8 g/dL (3.5-5.0); Alkaline Phosphatase 140 U/L (39-117); Anion Gap 16 (12-20); Aspartate Amino Transferase 49 U/L (5-31); Bilirubin Total 0.4 mg/dL (0.0-1.0); Blood Urea Nitrogen 11 mg/dL (9-16); Calcium 8.8 mg/dL (8.4-10.2); Carbon Dioxide 23 mmol/L (22-29); Chloride 107 mmol/L (96-108); Creatinine Clr Calc Pharmacy 77.4; Estimated Glomerular Filt Rate > 60; Glucose Random 207 mg/dL (60-115); Sodium 143 mmol/L (135-145); Total Protein 6.9 g/dL (6.5-8.0)
[2023-12-29 07:21] LABS: Procalcitonin 1.13 ng/mL
[2023-12-29 08:07] LABS: Glucose, Whole Blood 198 mg/dL (60-115)
[2023-12-29 08:32] LABS: Magnesium 1.7 mg/dL (1.6-2.6)
[2023-12-29 08:51] LABS: TSH reflex Free T4 0.86 uIU/mL (0.32-4.0)
[2023-12-29] MEDS: Sennosides/Docusate Sodium TABLET 2 TAB PO ×2 (09:02→19:54)
[2023-12-29] MEDS: Potassium Chloride Packet 20 MEQ PACKET 40 MEQ PO (09:02)
[2023-12-29] MEDS: polyethylene glycoL 3350 17 GM POWD.PACK PO (09:02)
[2023-12-29] MEDS: Insulin Lispro 100 UNIT/ML 3 ML VIAL SUBCUT ×3 (09:03→21:38)
[2023-12-29] MEDS: Metoprolol Tartrate 50 MG TABLET PO ×2 (09:03→19:54)
[2023-12-29] MEDS: amLODIPine Besylate 5 MG TABLET PO (09:03)
[2023-12-29] MEDS: Valsartan 80 MG TABLET PO (09:03)
[2023-12-29] MEDS: Doxycycline Hyclate 100 MG in 0.9 % Sodium Chloride 250 ML 166.67 MG IV ×2 (09:12→19:55)
[2023-12-29] MEDS: 0.9 % Sodium Chloride Flush 3 ML SYRINGE IVFLUSH ×2 (09:12→15:36)
[2023-12-29] MEDS: oxyCODONE HCl Immed Release 5 MG TABLET PO ×3 (11:12→19:59)
[2023-12-29 11:21] LABS: Glucose, Whole Blood 276 mg/dL (60-115)
--- NOTE | 2023-12-29 11:33 | HO.PM.IMPN ---
Subjective Subjective Date of Service: 12/29/23 Interval History: feels better today chronic neck pain improved still c/o severe L wrist pain from arthritis minimal cough; no dyspnea no abd pain or diarrhea Review of Systems Review of Systems: Yes all other systems are reviewed and are negative Physical Exam Vital Signs: Vital Signs: Last Vital Signs Temp 97.7 F 12/29/23 08:00 Pulse 115 H 12/29/23 08:00 Resp 20 12/29/23 08:00 BP 152/77 H 12/29/23 08:00 Pulse Ox 92 12/29/23 08:00 O2 Del Method Room Air 12/29/23 08:00 O2 Flow Rate 2 12/28/23 04:00 BMI result Body Mass Index 30.0 Gen: in no acute distress HEENT: sclera anicteric, dry mucus membranes Neck: supple Lungs: clear to auscultation bilaterally Heart: regular, tachycardic, no murmurs Abd: soft, non-tender, non-distended Ext: LUE with hand/wrist/forearm swelling, tenderness Skin: warm/well-perfused Neuro: alert and oriented x3, no focal findings Psych: appropriate affect Objective Data Active Medications Acetaminophen (Acetaminophen 325 Mg Tablet) 650 mg PO Q6H PRN PRN Reason: Pain, Mild (Pain Scale 1-3) Last Admin: 12/29/23 10:55 Dose: 650 mg Documented By: ROSELIA Albuterol Sulfate (Albuterol Sulfate 90 Mcg 8 Gm Inhaler) 2 puff INHALE Q4H PRN PRN Reason: Shortness Of Breath Or Wheezing Amlodipine Besylate (Amlodipine Besylate 5 Mg Tablet) 5 mg PO DAILY [facility]; Protocol Last Admin: 12/29/23 09:03 Dose: 5 mg Documented By: ROSELIA Atorvastatin Calcium (Atorvastatin Calcium 10 Mg Tablet) 10 mg PO BEDTIME [facility] Last Admin: 12/28/23 20:14 Dose: 10 mg Documented By: ERMIAS Baclofen (Baclofen 10 Mg Tablet) 10 mg PO DAILY PRN PRN Reason: Muscle Spasm Last Admin: 12/25/23 13:28 Dose: 10 mg Documented By: JESSENIA Clonazepam (Clonazepam 0.5 Mg Tablet) 0.5 mg PO BID PRN PRN Reason: Anxiety Last Admin: 12/28/23 18:06 Dose: 0.5 mg Documented By: AUTUMN Enoxaparin Sodium (Enoxaparin Sodium 40 Mg/0.4 Ml Syringe) 40 mg SUBCUT 0300 [facility] Last Admin: 12/29/23 03:38 Dose: 40 mg Documented By: ERMIAS Glucose (Glucose Gel 15 Gm Gel..Gram.) 15 gm PO Q15M PRN; Protocol PRN Reason: per Hypoglycemia Standing Ord. Dextrose (D10) 250 mls @ 750 mls/hr IV Q15M PRN; Protocol PRN Reason: per Hypoglycemia Standing Ord. Ceftriaxone Sodium 2 gm/ (Sodium Chloride) 50 mls @ 100 mls/hr IV Q24H [facility] Last Infusion: 12/29/23 03:00 Dose: Infused Documented By: ERMIAS Sodium Chloride (Ns) 1,000 mls @ 100 mls/hr IVCONT .Q10H [facility] Last Infusion: 12/29/23 09:22 Dose: Infused Documented By: ROSELIA Doxycycline Hyclate 100 mg/ (Sodium Chloride) 250 mls @ 166.67 mls/hr IV BID [facility] Last Infusion: 12/29/23 11:16 Dose: Infused Documented By: ROSELIA Insulin Human Lispro (Insulin Lispro 100 Unit/Ml 3 Ml Vial) 0 unit SUBCUT QIDACHS [facility]; Protocol Last Admin: 12/29/23 09:03 Dose: 4 unit Documented By: ROSELIA Melatonin (Melatonin 3 Mg Tablet) 6 mg PO BEDTIME PRN PRN Reason: Insomnia Last Admin: 12/22/23 21:14 Dose: 6 mg Documented By: JULIO CÉSAR Metoprolol Tartrate (Metoprolol Tartrate 50 Mg Tablet) 50 mg PO BID [facility]; Protocol Last Admin: 12/29/23 09:03 Dose: 50 mg Documented By: ROSELIA Pt Own (Quetiapine 400 Mg Tablet Extended Release 24 Hr) 400 mg PO BEDTIME [facility] Last Admin: 12/28/23 20:13 Dose: 400 mg Documented By: ERMIAS Ondansetron HCl (Ondansetron Hcl 4 Mg/2 Ml Vial) 4 mg IVPUSH Q8H PRN PRN Reason: Nausea and Vomiting Oxycodone HCl (Oxycodone Hcl Immed Release 5 Mg Tablet) 5 mg PO Q4H PRN PRN Reason: severe pain Last Admin: 12/29/23 11:12 Dose: 5 mg Documented By: ROSELIA Polyethylene Glycol (Polyethylene Glycol 3350 17 Gm Powd.Pack) 17 gm PO DAILY [facility] Last Admin: 12/29/23 09:02 Dose: 17 gm Documented By: ROSELIA Senna/Docusate Sodium (Sennosides/Docusate Sodium Tablet) 2 tab PO BID [facility] Last Admin: 12/29/23 09:02 Dose: 2 tab Documented By: ROSELIA Sodium Chloride (0.9 % Sodium Chloride Flush 3 Ml Syringe) 3 ml IVFLUSH QSHIFT [facility] Last Admin: 12/29/23 09:12 Dose: 3 ml Documented By: ROSELIA Trolamine Salicylate (Trolamine Salicylate 10 % Cream 85 Gm Tube) 1 appl TOPICAL BID PRN; Protocol PRN Reason: mid back Last Admin: 12/26/23 09:19 Dose: 1 appl Documented By: JESSENIA Valsartan (Valsartan 80 Mg Tablet) 80 mg PO DAILY [facility]; Protocol Last Admin: 12/29/23 09:03 Dose: 80 mg Documented By: ROSELIA Zolpidem Tartrate (Zolpidem Tartrate 5 Mg Tablet) 5 mg PO BEDTIME PRN PRN Reason: Insomnia Last Admin: 12/26/23 22:10 Dose: 5 mg Documented By: KAVONANO Labs 12/29/23 05:54 12/29/23 05:54 Labs: Laboratory Results - last 24 hr 12/28/23 12/28/23 12/28/23 11:39 16:05 21:28 MCV MCH MCHC RDW Plt Count MPV Immature Gran % (Auto) Neut % (Auto) Lymph % (Auto) [place] % (Auto) Eos % (Auto) Baso % (Auto) Lymph # (Auto) [place] # (Auto) Eos # (Auto) Baso # (Auto) Abs Immat Gran (auto) Absolute Neuts (auto) Absolute Nucleated RBC Nucleated RBC % (auto) Anion Gap Estim Creat Clear Calc Estimated GFR POC Glucose 215 H 219 H 231 H Random Glucose Calcium Magnesium Total Bilirubin AST ALT Alkaline Phosphatase Total Protein Albumin Procalcitonin TSH 12/29/23 12/29/23 12/29/23 05:54 07:37 11:09 MCV 84.7 MCH 28.9 MCHC 34.2 RDW 15.0 Plt Count 403 H MPV 9.6 Immature Gran % (Auto) 1.0 H Neut % (Auto) 83.4 H Lymph % (Auto) 10.3 L [place] % (Auto) 4.5 Eos % (Auto) 0.5 Baso % (Auto) 0.3 Lymph # (Auto) 1.6 [place] # (Auto) 0.7 Eos # (Auto) 0.1 Baso # (Auto) 0.0 Abs Immat Gran (auto) 0.16 H Absolute Neuts (auto) 12.8 H Absolute Nucleated RBC 0.000 Nucleated RBC % (auto) 0.0 Anion Gap 16 Estim Creat Clear Calc 77.4 Estimated GFR > 60 POC Glucose 198 H 276 H Random Glucose 207 H Calcium 8.8 Magnesium 1.7 Total Bilirubin 0.4 AST 49 H ALT 61 H Alkaline Phosphatase 140 H Total Protein 6.9 Albumin 2.8 L Procalcitonin 1.13 TSH 0.86 Impressions Renal Ultrasound 12/26/23 10:30 IMPRESSION: 1. Normal-appearing kidneys. 2. Enlarged fatty liver. Chest X-Ray 12/27/23 15:02 IMPRESSION: Mild bibasilar atelectasis. No evidence of pneumonia. WBC Scan Nuclear Medicine 12/28/23 17:40 IMPRESSION: No definite source of infection. Visualization of the gallbladder could be physiologic. Clinical correlation and follow-up targeted gallbladder ultrasound may be considered for further clarification if appropriate. Chest CTA 12/28/23 22:08 IMPRESSION: 1. No pulmonary embolus identified. 2. Faint groundglass opacity in the right middle lobe, suspicious for an infectious/inflammatory etiology. 3. Enlarged thyroid gland with 0.7 cm right thyroid lobe nodule. Based on the recommendations of the ACR Incidental Thyroid Findings Committee (JACR 2015 Sep; 12(2):143-50), no imaging followup is recommended for incidental thyroid nodules with largest axial dimension less than 1.5 cm in patients greater than 35 years of age in the absence of high risk imaging features, symptomatic thyroid disease, or increased risk for thyroid cancer. VTE: negative. Microbiology Microbiology Results: Microbiology 12/26/23 06:45 Blood Culture - Preliminary Blood - Venous No growth after 48 hours. 12/26/23 06:45 Blood Culture - Preliminary Blood - Venous No growth after 48 hours. Assessment and Plan (1) Acute renal failure: Status: Acute (2) UTI (urinary tract infection): Status: Acute (3) Sepsis: Status: Acute Plan d8 68yo F with DM2, HTN, HLD, mood disorder, insomnia presenting with dysuria, admitted for sepsis with UTI with E. coli bacteremia sepsis due to UTI/E. coli bacteremia - fletcher-sensitive E. coli, on ceftriaxone 12/21-, repeat BCx 12/25 negative to date, likely total 14d antibiotic therapy [can complete with cefuroxime upon discharge, end date 01/04] - given worsening WBCs + tachycardia + high CRP, extensively searched for other sources of infection/inflammation. RVP negative, repeat CT A/P unrevealing. CTA chest neg for PE but did show ground-glass opacity of RML; will start doxycycline. Tagged WBC scan with uptake in gallbadder but could be physiologic; US pending. SUNSHINE/sFLCR pending. ID consulted and following. atypical pneumonia - ceftriaxone 12/21-01/04, doxycycline 12/28-01/01 toxic encephalopathy - due to gabapentin; discontinued due to excessive somnolence prerenal SHARON - resolved after fluid repletion hypoK - replete PO; recheck level in AM hypoMg - repleted LUE swelling/pain - likely due to arthritis. removable splint; OT consulted; APAP + oxycodone prn DM2 with hyperglycemia - tammy-dose lispro HTN - continue metoprolol + amlodipine + valsartan mood disorder - continue quetiapine, clonazepam, zolpidem VTE ppx - LMWH dispo - PT eval pending In my clinical judgment, the patient requires continued inpatient hospitalization for the following reasons: IV ABX Family updated at bedside and over the phone. Total time managing care of this patient today: 45 minutes. Quality Stroke Does the patient have a stroke diagnosis?: No VTE Prior VTE?: No VTE Risk Level:: Medical - moderate - high VTE Device Contraindication: Treatment Not Indicated VTE Drug Contraindication: N/A - Med Ordered
[2023-12-29] MEDS: 0.9 % Sodium Chloride 1,000 ML 100 ML IVCONT ×2 (15:38→23:27)
--- NOTE | 2023-12-29 16:28 | MHC.CM.PN ---
EMR reviewed and per MD rounds, pt is not medically cleared for discharge due to management of UTI, pt receiving IV fluids and IV abx, and PT eval pending, and anticipating pt will be ready for discharge tomorrow. PT evaluated pt and are recommending acute rehab, referrals placed to the 3 local acute rehabs.
[2023-12-29 16:47] LABS: Glucose, Whole Blood 243 mg/dL (60-115)
[2023-12-29] MEDS: Atorvastatin Calcium 10 MG TABLET PO (19:54)
[2023-12-29 20:25] LABS: Glucose, Whole Blood 206 mg/dL (60-115)
[2023-12-30] VITALS (8 sets, daily range): BP systolic 119–160; BP diastolic 68–82; PULSE 90–137; RESP 17–20; TEMP 36.3–36.9; O2SAT 91–94
[2023-12-30] MEDS: cefTRIAXone sodium 2 GM in 0.9 % Sodium Chloride 50 ML IV (02:47)
[2023-12-30] MEDS: Enoxaparin Sodium 40 MG/0.4 ML SYRINGE SUBCUT (03:07)
[2023-12-30 06:38] LABS: Hematocrit 25.5 % (37.0-47.0); Hemoglobin 8.4 g/dl (12.0-16.0); Mean Corpuscular HGB Conc 32.9 g/dl (31.0-35.0); Mean Corpuscular Hemoglobin 28.4 pg (27.0-33.0); Mean Corpuscular Volume 86.1 fL (80.0-98.0); Mean Platelet Volume 9.2 fL (9.4-12.3); Platelet Count 418 X10*3/uL (160-400); Red Blood Count 2.96 X10*6/uL (4.20-5.50); Red Cell Distribution Width 15.2 % (11.0-16.0); White Blood Count 13.8 X10*3/uL (4.8-10.8)
[2023-12-30 06:46] LABS: Anion Gap 13 (12-20); Blood Urea Nitrogen 9 mg/dL (9-16); C Reactive Protein 26.55 mg/dL (< or = 0.50); Calcium 9.1 mg/dL (8.4-10.2); Carbon Dioxide 24 mmol/L (22-29); Chloride 109 mmol/L (96-108); Creatinine Clr Calc Pharmacy 76.4; Estimated Glomerular Filt Rate > 60; Glucose Random 184 mg/dL (60-115); Sodium 143 mmol/L (135-145)
[2023-12-30 07:01] LABS: Glucose, Whole Blood 170 mg/dL (60-115)
--- NOTE | 2023-12-30 08:52 | HO.PM.IMPN ---
Subjective Subjective Date of Service: 12/30/23 Interval History: reports choking with food. continues to have cough Review of Systems All other system reviewed and are negative. Constitutional Constitutional: Reports chills, Reports fatigue, Reports poor appetite and Reports weakness Cardiovascular Cardiovascular: Reports no additional cardiovascular complaints Respiratory Respiratory: Reports no additional respiratory complaints Gastrointestinal Gastrointestinal: Reports nausea Neurologic Neurologic: Reports weakness Endocrine Endocrine: Reports fatigue Physical Exam Vital Signs: Vital Signs: Last Vital Signs Temp 98.5 F 12/30/23 07:35 Pulse 116 H 12/30/23 07:35 Resp 20 12/30/23 07:35 BP 159/80 H 12/30/23 07:35 Pulse Ox 92 12/30/23 07:35 O2 Del Method Room Air 12/30/23 07:35 O2 Flow Rate 2 12/28/23 04:00 BMI result Body Mass Index 30.0 Const: Other: General awake alert x3, sitting comfortably, in no acute distress. Neck supple no JVD. CVS regular rate rhythm, Right sided crackles + Gastrointestinal abdomen soft, non tender, bowel sounds audible. Extremities no edema. Neuro non focal. Skin no rash. Psych appropriate affect. Back no CVA tenderness, positive tenderness mid lumbar spine. Objective Data Active Medications Acetaminophen (Acetaminophen 325 Mg Tablet) 650 mg PO Q6H PRN PRN Reason: Pain, Mild (Pain Scale 1-3) Last Admin: 12/29/23 19:59 Dose: 650 mg Documented By: ERMIAS Albuterol Sulfate (Albuterol Sulfate 90 Mcg 8 Gm Inhaler) 2 puff INHALE Q4H PRN PRN Reason: Shortness Of Breath Or Wheezing Amlodipine Besylate (Amlodipine Besylate 5 Mg Tablet) 5 mg PO DAILY [facility]; Protocol Last Admin: 12/29/23 09:03 Dose: 5 mg Documented By: ROSELIA Atorvastatin Calcium (Atorvastatin Calcium 10 Mg Tablet) 10 mg PO BEDTIME SHANE Last Admin: 12/29/23 19:54 Dose: 10 mg Documented By: ERMIAS Baclofen (Baclofen 10 Mg Tablet) 10 mg PO DAILY PRN PRN Reason: Muscle Spasm Last Admin: 12/25/23 13:28 Dose: 10 mg Documented By: JESSENIA Clonazepam (Clonazepam 0.5 Mg Tablet) 0.5 mg PO BID PRN PRN Reason: Anxiety Last Admin: 12/28/23 18:06 Dose: 0.5 mg Documented By: AUTUMN Enoxaparin Sodium (Enoxaparin Sodium 40 Mg/0.4 Ml Syringe) 40 mg SUBCUT 0300 COUNTS INCLUDE 234 BEDS AT THE [facility] Last Admin: 12/30/23 03:07 Dose: 40 mg Documented By: ERMIAS Glucose (Glucose Gel 15 Gm Gel..Gram.) 15 gm PO Q15M PRN; Protocol PRN Reason: per Hypoglycemia Standing Ord. Dextrose (D10) 250 mls @ 750 mls/hr IV Q15M PRN; Protocol PRN Reason: per Hypoglycemia Standing Ord. Ceftriaxone Sodium 2 gm/ (Sodium Chloride) 50 mls @ 100 mls/hr IV Q24H COUNTS INCLUDE 234 BEDS AT THE [facility] Last Infusion: 12/30/23 03:26 Dose: Infused Documented By: ERMIAS Sodium Chloride (Ns) 1,000 mls @ 100 mls/hr IVCONT .Q10H COUNTS INCLUDE 234 BEDS AT THE [facility] Last Admin: 12/29/23 23:27 Dose: 100 mls/hr Documented By: ERMIAS Doxycycline Hyclate 100 mg/ (Sodium Chloride) 250 mls @ 166.67 mls/hr IV BID COUNTS INCLUDE 234 BEDS AT THE [facility] Last Infusion: 12/29/23 22:31 Dose: Infused Documented By: ERMIAS Insulin Human Lispro (Insulin Lispro 100 Unit/Ml 3 Ml Vial) 0 unit SUBCUT QIDACHS COUNTS INCLUDE 234 BEDS AT THE [facility]; Protocol Last Admin: 12/29/23 21:38 Dose: 6 unit Documented By: ERMIAS Melatonin (Melatonin 3 Mg Tablet) 6 mg PO BEDTIME PRN PRN Reason: Insomnia Last Admin: 12/22/23 21:14 Dose: 6 mg Documented By: JULIO CÉSAR Metoprolol Tartrate (Metoprolol Tartrate 50 Mg Tablet) 50 mg PO BID COUNTS INCLUDE 234 BEDS AT THE [facility]; Protocol Last Admin: 12/29/23 19:54 Dose: 50 mg Documented By: ERMIAS Pt Own (Quetiapine 400 Mg Tablet Extended Release 24 Hr) 400 mg PO BEDTIME COUNTS INCLUDE 234 BEDS AT THE [facility] Last Admin: 12/29/23 21:38 Dose: 400 mg Documented By: ERMIAS Ondansetron HCl (Ondansetron Hcl 4 Mg/2 Ml Vial) 4 mg IVPUSH Q8H PRN PRN Reason: Nausea and Vomiting Oxycodone HCl (Oxycodone Hcl Immed Release 5 Mg Tablet) 5 mg PO Q4H PRN PRN Reason: severe pain Last Admin: 12/29/23 19:59 Dose: 5 mg Documented By: ERMIAS Polyethylene Glycol (Polyethylene Glycol 3350 17 Gm Powd.Pack) 17 gm PO DAILY COUNTS INCLUDE 234 BEDS AT THE [facility] Last Admin: 12/29/23 09:02 Dose: 17 gm Documented By: ROSELIA Senna/Docusate Sodium (Sennosides/Docusate Sodium Tablet) 2 tab PO BID COUNTS INCLUDE 234 BEDS AT THE [facility] Last Admin: 12/29/23 19:54 Dose: 2 tab Documented By: ERMIAS Sodium Chloride (0.9 % Sodium Chloride Flush 3 Ml Syringe) 3 ml IVFLUSH QSHIFT COUNTS INCLUDE 234 BEDS AT THE [facility] Last Admin: 12/29/23 23:18 Dose: Not Given Documented By: ERMIAS Non-Admin Reason: IV Running Trolamine Salicylate (Trolamine Salicylate 10 % Cream 85 Gm Tube) 1 appl TOPICAL BID PRN; Protocol PRN Reason: mid back Last Admin: 12/26/23 09:19 Dose: 1 appl Documented By: JESSENIA Valsartan (Valsartan 80 Mg Tablet) 80 mg PO DAILY COUNTS INCLUDE 234 BEDS AT THE [facility]; Protocol Last Admin: 12/29/23 09:03 Dose: 80 mg Documented By: ROSELIA Zolpidem Tartrate (Zolpidem Tartrate 5 Mg Tablet) 5 mg PO BEDTIME PRN PRN Reason: Insomnia Last Admin: 12/26/23 22:10 Dose: 5 mg Documented By: INDIA Labs 12/30/23 06:07 12/30/23 06:07 Labs: Laboratory Results - last 24 hr 12/29/23 12/29/23 12/29/23 05:54 11:09 16:32 MCV MCH MCHC RDW Plt Count MPV Absolute Nucleated RBC Nucleated RBC % (auto) Anion Gap Estim Creat Clear Calc Estimated GFR POC Glucose 276 H 243 H Random Glucose Calcium C-Reactive Protein TSH 0.86 12/29/23 12/30/23 12/30/23 20:22 06:07 06:50 MCV 86.1 MCH 28.4 MCHC 32.9 RDW 15.2 Plt Count 418 H MPV 9.2 L Absolute Nucleated RBC 0.000 Nucleated RBC % (auto) 0.0 Anion Gap 13 Estim Creat Clear Calc 76.4 Estimated GFR > 60 POC Glucose 206 H 170 H Random Glucose 184 H Calcium 9.1 C-Reactive Protein 26.55 H TSH Assessment and Plan (1) UTI (urinary tract infection): Status: Acute (2) Aspiration pneumonia: Status: Acute Plan d8 68yo F with DM2, HTN, HLD, mood disorder, insomnia presenting with dysuria, admitted for sepsis with UTI with E. coli bacteremia sepsis due to UTI/E. coli bacteremia - fletcher-sensitive E. coli, on ceftriaxone 12/21-, unasyn 12/28- ; repeat BCx 12/25 negative to date, likely total 14d antibiotic therapy - given worsening WBCs + tachycardia + high CRP, extensively searched for other sources of infection/inflammation. RVP negative, repeat CT A/P unrevealing. CTA chest neg for PE but did show ground-glass opacity of RML; started doxycycline 12-28 and switch ceftriaone to unasyn due to concern for aspiration. Tagged WBC scan with uptake in gallbadder but could be physiologic. SUNSHINE/sFLCR pending. ID consulted. Keep NPO and consult for possible aspiration. ?aspiration pneumonia - unasyn 12/29- , doxycycline 12/28-01/01 toxic encephalopathy - due to gabapentin; discontinued due to excessive somnolence prerenal SHARON - resolved after fluid repletion hypoK - repleted; recheck level in AM hypoMg - repleted LUE swelling/pain - likely due to arthritis. removable splint; OT consulted; APAP + oxycodone prn DM2 with hyperglycemia - tammy-dose lispro HTN - continue metoprolol + amlodipine + valsartan mood disorder - continue quetiapine, clonazepam, zolpidem VTE ppx - LMWH dispo - STR In my clinical judgment, the patient requires continued inpatient hospitalization for the following reasons: IV ABX, evaluation by EDI SPECIALIST for likely aspiration, placement Called Yessy, daughter and updated over the phone, answered questions Quality Stroke Does the patient have a stroke diagnosis?: No VTE Prior VTE?: No VTE Risk Level:: Medical - moderate - high VTE Device Contraindication: Treatment Not Indicated VTE Drug Contraindication: N/A - Med Ordered
[2023-12-30] MEDS: Valsartan 80 MG TABLET PO (09:14)
[2023-12-30] MEDS: Sennosides/Docusate Sodium TABLET 2 TAB PO ×2 (09:14→20:53)
[2023-12-30] MEDS: oxyCODONE HCl Immed Release 5 MG TABLET PO ×3 (09:14→21:11)
[2023-12-30] MEDS: amLODIPine Besylate 5 MG TABLET PO (09:14)
[2023-12-30] MEDS: Metoprolol Tartrate 50 MG TABLET PO ×2 (09:14→20:53)
[2023-12-30] MEDS: Doxycycline Hyclate 100 MG in 0.9 % Sodium Chloride 250 ML 166.67 MG IV ×2 (09:15→21:01)
[2023-12-30] MEDS: 0.9 % Sodium Chloride Flush 3 ML SYRINGE IVFLUSH ×2 (09:15→15:29)
[2023-12-30] MEDS: Acetaminophen 325 MG TABLET 650 MG PO (09:27)
[2023-12-30] MEDS: Potassium Chloride/H20 10 MEQ/100 ML PIGGYBACK 100 MEQ IV ×4 (10:30→13:50)
[2023-12-30] MEDS: Ampicillin Sodium/Sulbactam Na 3 GM in 0.9 % Sodium Chloride 100 ML IV ×3 (10:45→21:01)
[2023-12-30 10:52] LABS: Glucose, Whole Blood 164 mg/dL (60-115)
[2023-12-30] MEDS: polyethylene glycoL 3350 17 GM POWD.PACK PO (11:24)
[2023-12-30] MEDS: Insulin Lispro 100 UNIT/ML 3 ML VIAL SUBCUT ×3 (12:20→20:54)
[2023-12-30] MEDS: 0.9 % Sodium Chloride 1,000 ML 100 ML IVCONT (12:45)
--- NOTE | 2023-12-30 13:25 | MHC.SL.SWA ---
Speech Pathologist Impression: Risk of Aspiration Due to: History of Pneumonia Dysphasia Diet Status: Liquid Consistency and Strategies for Safe Swallow: Liquid Intake Recommendation: Thin Liquid Intake Strategies: Small Sips Solid Food Consistency: Dietary Recommendations: Chopped/Advanced (NDD3) Additional Modifications to Solid Foods: Patient is able to feed self independently, though left wrist/hand has limited use due to painful arthritis. Patient eats very slowly, may need more time to consume meal. Add sauces and gravies to meal. Alternate liquids and solids. Oral Medication Intake: Whole with Liquid Please contact the pharmacy regarding appropriate crushable or liquid drug formulations that are available whenever modified delivery is recommended. Compensatory Strategies and Precautions to be Taken for Safe Swallow: Sitting Upright (90 deg) Liquids from Cup Liquids from Straw Small Bites and Sips Alternate Liquids/Solids Rate of Ingestion Change Supervision While Eating and Drinking for Safe Swallow: None Needed Foods to Avoid: Hard, difficulty to chew solids, dry, crunchy textures. Swallowing Recommended Treatments: Compens. Strategy Educat. Recommendation for Speech: Inpatient Speech Therapy Comment: Patient presents with oral motor function WFL, wears dentures. With swallowing, patient presents with a slow, deliberate rate of chewing, with some greater difficulty managing tougher or harder textures, likely secondary to dentures and the care patient takes when eating. Patient NPO for this swallow study, recommend UPGRADE diet to Chopped/Advanced (NDD3) for ease of mastication, THIN liquids with pills whole with liquid. ADVERTISING MATERIAL DISTRIBUTOR to f/u one time for toleration of meal/diet. REFUGIO QUINN notified of recommendation by secure text, RN in person. Frequency/Duration: 1 f/u Date Range for Service Req: Timeline to reassess: Test Pilot Clinican/Clinical Fellow: No Supervisory Statement: I have reviewed and agree with the student/clinical fellow's documentation: N/A Speech Language Pathologist: Liliana Lewis M.A., CCC-ADVERTISING MATERIAL DISTRIBUTOR
--- NOTE | 2023-12-30 14:34 | MHC.CM.PN ---
The patient has been declined for Acute Rehab; because her insurance is OON. STR preferences obtained and referrals were sent. [facility] was the only bed offer received. The patient accepts the bed. [facility] via s.
[2023-12-30 16:13] LABS: IgA 364 mg/dL (70-320); IgG 1221 mg/dL (600-1540); IgM 76 mg/dL (50-300)
[2023-12-30 16:18] LABS: Glucose, Whole Blood 221 mg/dL (60-115)
[2023-12-30] MEDS: clonazePAM 0.5 MG TABLET PO (17:11)
[2023-12-30 20:36] LABS: Glucose, Whole Blood 178 mg/dL (60-115)
[2023-12-30] MEDS: Atorvastatin Calcium 10 MG TABLET PO (20:53)
[2023-12-31] VITALS (8 sets, daily range): BP systolic 142–165; BP diastolic 67–81; PULSE 94–115; RESP 16–20; TEMP 36.2–36.6; O2SAT 94–96
[2023-12-31] MEDS: Ampicillin Sodium/Sulbactam Na 3 GM in 0.9 % Sodium Chloride 100 ML IV ×2 (03:33→12:45)
[2023-12-31] MEDS: Enoxaparin Sodium 40 MG/0.4 ML SYRINGE SUBCUT (03:33)
[2023-12-31] MEDS: 0.9 % Sodium Chloride Flush 3 ML SYRINGE IVFLUSH ×3 (03:37→21:39)
[2023-12-31] MEDS: Acetaminophen 325 MG TABLET 650 MG PO ×3 (04:00→17:12)
[2023-12-31 06:47] LABS: MANUAL DIFF FLAG NO
[2023-12-31 07:05] LABS: Basophils Percent Auto 0.3 % (0-2); Eosinophils Absolute Auto 0.1 X10*3/uL (0.0-0.4); Hematocrit 24.9 % (37.0-47.0); Hemoglobin 8.3 g/dl (12.0-16.0); Imm Gran Pct Auto 0.8 % (0.0-0.4); Lymphocytes Absolute Auto 2.2 X10*3/uL (1.2-4.9); Mean Corpuscular HGB Conc 33.3 g/dl (31.0-35.0); Mean Corpuscular Hemoglobin 28.9 pg (27.0-33.0); Mean Corpuscular Volume 86.8 fL (80.0-98.0); Mean Platelet Volume 9.2 fL (9.4-12.3); Monocytes Absolute Auto 0.6 X10*3/uL (0.1-1.2); Monocytes Percent Auto 4.8 % (2-11); NRBC Pct Auto 0.2 /100WBC (0.0-0.2); Neutrophils Absolute Auto 9.3 x10*3/uL (2.0-8.3); Neutrophils Percent Auto 75.1 % (45-73); Platelet Count 449 X10*3/uL (160-400); Red Blood Count 2.87 X10*6/uL (4.20-5.50); Red Cell Distribution Width 15.1 % (11.0-16.0); White Blood Count 12.3 X10*3/uL (4.8-10.8)
[2023-12-31 07:07] LABS: Anion Gap 13 (12-20); Blood Urea Nitrogen 7 mg/dL (9-16); Calcium 9.1 mg/dL (8.4-10.2); Carbon Dioxide 24 mmol/L (22-29); Chloride 109 mmol/L (96-108); Creatinine Clr Calc Pharmacy 81.8; Estimated Glomerular Filt Rate > 60; Glucose Random 199 mg/dL (60-115); Sodium 143 mmol/L (135-145)
[2023-12-31 07:18] LABS: Potassium 2.9 mmol/L (3.3-5.1)
[2023-12-31 07:41] LABS: Glucose, Whole Blood 184 mg/dL (60-115)
--- NOTE | 2023-12-31 09:08 | P.PNIM_ITS ---
Subjective Subjective Date of Service: 12/31/23 Interval History: no acute events overnight. Tolerating chopped food. WBC trending down Review of Systems All other system reviewed and are negative. Constitutional Constitutional: Reports chills, Reports fatigue, Reports poor appetite and Reports weakness Cardiovascular Cardiovascular: Reports no additional cardiovascular complaints Respiratory Respiratory: Reports no additional respiratory complaints Gastrointestinal Gastrointestinal: Reports nausea Neurologic Neurologic: Reports weakness Endocrine Endocrine: Reports fatigue Physical Exam 2 Vital Signs: Vital Signs: Last Vital Signs Temp 97.3 F 12/31/23 07:39 Pulse 106 H 12/31/23 07:39 Resp 20 12/31/23 07:39 BP 142/76 H 12/31/23 07:39 Pulse Ox 94 12/31/23 07:39 O2 Del Method Room Air 12/31/23 07:39 O2 Flow Rate 2 12/28/23 04:00 BMI result Body Mass Index 30.0 Const: Other: General awake alert x3, sitting comfortably, in no acute distress. Neck supple no JVD. CVS regular rate rhythm, Right sided crackles + Gastrointestinal abdomen soft, non tender, bowel sounds audible. Extremities no edema. Neuro non focal. Skin no rash. Psych appropriate affect. Back no CVA tenderness, positive tenderness mid lumbar spine. Objective Data Active Medications Acetaminophen (Acetaminophen 325 Mg Tablet) 650 mg PO Q6H PRN PRN Reason: Pain, Mild (Pain Scale 1-3) Last Admin: 12/31/23 04:00 Dose: 650 mg Documented By: HOLLIE Albuterol Sulfate (Albuterol Sulfate 90 Mcg 8 Gm Inhaler) 2 puff INHALE Q4H PRN PRN Reason: Shortness Of Breath Or Wheezing Amlodipine Besylate (Amlodipine Besylate 5 Mg Tablet) 5 mg PO DAILY [facility] [place]; Protocol Last Admin: 12/30/23 09:14 Dose: 5 mg Documented By: ROSELIA Atorvastatin Calcium (Atorvastatin Calcium 10 Mg Tablet) 10 mg PO BEDTIME [facility] Last Admin: 12/30/23 20:53 Dose: 10 mg Documented By: ROSELIA Baclofen (Baclofen 10 Mg Tablet) 10 mg PO DAILY PRN PRN Reason: Muscle Spasm Last Admin: 12/25/23 13:28 Dose: 10 mg Documented By: JESSENIA Clonazepam (Clonazepam 0.5 Mg Tablet) 0.5 mg PO BID PRN PRN Reason: Anxiety Last Admin: 12/30/23 17:11 Dose: 0.5 mg Documented By: ROSELIA Enoxaparin Sodium (Enoxaparin Sodium 40 Mg/0.4 Ml Syringe) 40 mg SUBCUT 0300 [facility] [place] Last Admin: 12/31/23 03:33 Dose: 40 mg Documented By: HOLLIE Glucose (Glucose Gel 15 Gm Gel..Gram.) 15 gm PO Q15M PRN; Protocol PRN Reason: per Hypoglycemia Standing Ord. Dextrose (D10) 250 mls @ 750 mls/hr IV Q15M PRN; Protocol PRN Reason: per Hypoglycemia Standing Ord. Doxycycline Hyclate 100 mg/ (Sodium Chloride) 250 mls @ 166.67 mls/hr IV BID [facility] [place] Last Infusion: 12/30/23 22:33 Dose: Infused Documented By: ROSELIA Ampicillin Sodium/Sulbactam (Sodium 3 gm/ Sodium Chloride) 100 mls @ 200 mls/hr IV Q6H [facility] [place] Last Infusion: 12/31/23 04:23 Dose: Infused Documented By: HOLLIE Potassium Chloride (Potassium Chloride/H20) 10 meq in 100 mls @ 100 mls/hr IV Q1H [facility] [place] Stop: 12/31/23 11:29 Insulin Human Lispro (Insulin Lispro 100 Unit/Ml 3 Ml Vial) 0 unit SUBCUT QIDACHS [facility] [place]; Protocol Last Admin: 12/30/23 20:54 Dose: 4 unit Documented By: ROSELIA Melatonin (Melatonin 3 Mg Tablet) 6 mg PO BEDTIME PRN PRN Reason: Insomnia Last Admin: 12/22/23 21:14 Dose: 6 mg Documented By: JULIO CÉSAR Metoprolol Tartrate (Metoprolol Tartrate 50 Mg Tablet) 50 mg PO BID [facility] [place]; Protocol Last Admin: 12/30/23 20:53 Dose: 50 mg Documented By: ROSELIA Pt Own (Quetiapine 400 Mg Tablet Extended Release 24 Hr) 400 mg PO BEDTIME [facility] [place] Last Admin: 12/30/23 20:56 Dose: 400 mg Documented By: ROSELIA Ondansetron HCl (Ondansetron Hcl 4 Mg/2 Ml Vial) 4 mg IVPUSH Q8H PRN PRN Reason: Nausea and Vomiting Oxycodone HCl (Oxycodone Hcl Immed Release 5 Mg Tablet) 5 mg PO Q4H PRN PRN Reason: severe pain Last Admin: 12/30/23 21:11 Dose: 5 mg Documented By: ROSELIA Polyethylene Glycol (Polyethylene Glycol 3350 17 Gm Powd.Pack) 17 gm PO DAILY [facility] Last Admin: 12/30/23 11:24 Dose: 17 gm Documented By: ROSELIA Senna/Docusate Sodium (Sennosides/Docusate Sodium Tablet) 2 tab PO BID [facility] Last Admin: 12/30/23 20:53 Dose: 2 tab Documented By: ROSELIA Sodium Chloride (0.9 % Sodium Chloride Flush 3 Ml Syringe) 3 ml IVFLUSH QSHIFT [facility] Last Admin: 12/31/23 03:37 Dose: 3 ml Documented By: BLAKE-RIVANTHONY Trolamine Salicylate (Trolamine Salicylate 10 % Cream 85 Gm Tube) 1 appl TOPICAL BID PRN; Protocol PRN Reason: mid back Last Admin: 12/26/23 09:19 Dose: 1 appl Documented By: JESSENIA Valsartan (Valsartan 80 Mg Tablet) 80 mg PO DAILY [facility] [place]; Protocol Last Admin: 12/30/23 09:14 Dose: 80 mg Documented By: ROSELIA Zolpidem Tartrate (Zolpidem Tartrate 5 Mg Tablet) 5 mg PO BEDTIME PRN PRN Reason: Insomnia Last Admin: 12/26/23 22:10 Dose: 5 mg Documented By: KAVONANO Labs 12/31/23 06:39 12/31/23 06:39 Labs: Laboratory Results - last 24 hr 12/28/23 12/30/23 12/30/23 06:40 10:39 16:15 MCV MCH MCHC RDW Plt Count MPV Immature Gran % (Auto) Neut % (Auto) Lymph % (Auto) Parker % (Auto) Eos % (Auto) Baso % (Auto) Lymph # (Auto) Parker # (Auto) Eos # (Auto) Baso # (Auto) Abs Immat Gran (auto) Absolute Neuts (auto) Absolute Nucleated RBC Nucleated RBC % (auto) Anion Gap Estim Creat Clear Calc Estimated GFR POC Glucose 164 H 221 H Random Glucose Calcium IgG Total 1221 IgA Total 364 H IgM 76 SUNSHINE Interpretation 12/30/23 12/31/23 12/31/23 20:20 06:39 07:38 MCV 86.8 MCH 28.9 MCHC 33.3 RDW 15.1 Plt Count 449 H MPV 9.2 L Immature Gran % (Auto) 0.8 H Neut % (Auto) 75.1 H Lymph % (Auto) 18.0 L Parker % (Auto) 4.8 Eos % (Auto) 1.0 Baso % (Auto) 0.3 Lymph # (Auto) 2.2 Parker # (Auto) 0.6 Eos # (Auto) 0.1 Baso # (Auto) 0.0 Abs Immat Gran (auto) 0.10 H Absolute Neuts (auto) 9.3 H Absolute Nucleated RBC 0.020 H Nucleated RBC % (auto) 0.2 Anion Gap 13 Estim Creat Clear Calc 81.8 Estimated GFR > 60 POC Glucose 178 H 184 H Random Glucose 199 H Calcium 9.1 IgG Total IgA Total IgM SUNSHINE Interpretation Microbiology Microbiology Results: Microbiology 12/26/23 06:45 Blood Culture - Final Blood - Venous No growth after 5 days. 12/26/23 06:45 Blood Culture - Final Blood - Venous No growth after 5 days. Assessment and Plan (1) Aspiration pneumonia: Status: Acute (2) Sepsis: Status: Acute (3) Sepsis due to gram-negative UTI: Status: Acute Plan d8 68yo F with DM2, HTN, HLD, mood disorder, insomnia presenting with dysuria, admitted for sepsis with UTI with E. coli bacteremia Sepsis due to UTI/E. coli bacteremia - fletcher-sensitive E. coli, on ceftriaxone 12/21-, switched to unasyn 12/28- ; repeat BCx 12/25 negative to date, likely total 14d antibiotic therapy - given worsening WBCs + tachycardia + high CRP, extensively searched for other sources of infection/inflammation. RVP negative, repeat CT A/P unrevealing. CTA chest neg for PE but did show ground-glass opacity of RML; started doxycycline 12-28. Tagged WBC scan with uptake in gallbadder but could be physiologic. SUNSHINE/sFLCR pending. Aspiration pneumonia - unasyn 12/29- , doxycycline 12/28-01/01 -Continue working with speech, tolerating chopped/advanced (NDD 3) diet toxic encephalopathy - due to gabapentin; discontinued due to excessive somnolence prerenal SHARON - resolved after fluid repletion hypoK - repleted; recheck level in AM hypoMg - repleted LUE swelling/pain - likely due to arthritis. removable splint; OT consulted; APAP + oxycodone prn DM2 with hyperglycemia - tammy-dose lispro HTN - continue metoprolol + amlodipine + valsartan mood disorder - continue quetiapine, clonazepam, zolpidem VTE ppx - LMWH dispo - STR In my clinical judgment, the patient requires continued inpatient hospitalization for the following reasons: IV ABX, CLOTH BOOKER for aspiration, placement 12/29: Called Yessy, daughter and updated over the phone, answered questions. 12/30 left voicemail Quality Stroke Does the patient have a stroke diagnosis?: No VTE Prior VTE?: No VTE Risk Level:: Medical - moderate - high VTE Device Contraindication: Treatment Not Indicated VTE Drug Contraindication: N/A - Med Ordered
[2023-12-31] MEDS: Insulin Lispro 100 UNIT/ML 3 ML VIAL SUBCUT ×4 (09:10→21:34)
[2023-12-31] MEDS: Metoprolol Tartrate 50 MG TABLET PO ×2 (09:11→21:36)
[2023-12-31] MEDS: amLODIPine Besylate 5 MG TABLET PO (09:11)
[2023-12-31] MEDS: Valsartan 80 MG TABLET PO (09:11)
[2023-12-31] MEDS: Sennosides/Docusate Sodium TABLET 2 TAB PO ×2 (09:11→21:38)
[2023-12-31] MEDS: polyethylene glycoL 3350 17 GM POWD.PACK PO (09:12)
[2023-12-31] MEDS: Potassium Chloride/H20 10 MEQ/100 ML PIGGYBACK 100 MEQ IV ×4 (09:14→17:22)
[2023-12-31] MEDS: oxyCODONE HCl Immed Release 5 MG TABLET PO (11:09)
--- NOTE | 2023-12-31 11:21 | MHC.SL.SWA ---
Speech Pathologist Impression: Oral phase dysphagia Risk of Aspiration Due to: History of Pneumonia Dysphasia Diet Status: No changes at this time Liquid Consistency and Strategies for Safe Swallow: Liquid Intake Recommendation: Thin Liquid Intake Strategies: Small Sips Solid Food Consistency: Dietary Recommendations: Chopped/Advanced (NDD3) Additional Modifications to Solid Foods: Recommend continue on modified diet CHOPPED/ADVANCED solids (NDD3) and THIN liquids. Please re-refer with any changes or if MEALS ON WHEELS DRIVER can be of further assistance. Oral Medication Intake: Whole with Liquid Please contact the pharmacy regarding appropriate crushable or liquid drug formulations that are available whenever modified delivery is recommended. Compensatory Strategies and Precautions to be Taken for Safe Swallow: Sitting Upright (90 deg) Double Swallow Small Bites and Sips Alternate Liquids/Solids Rate of Ingestion Change Avoid Specific Foods Supervision While Eating and Drinking for Safe Swallow: None Needed Foods to Avoid: Hard, difficulty to chew solids, dry, crunchy textures; mixed textures Swallowing Recommended Treatments: Compens. Strategy Educat. Recommendation for Speech: D/C Comment: Patient presents with oral motor function WFL, wears dentures. With swallowing, patient presents with a slow, deliberate rate of chewing, with some greater difficulty managing tougher or harder textures, likely secondary to dentures and the care patient takes when eating. Commercial Sales Manager Clinican/Clinical Fellow: No Supervisory Statement: I have reviewed and agree with the student/clinical fellow's documentation: N/A Speech Language Pathologist: Rachel Buenrostro M.A., CCC-MEALS ON WHEELS DRIVER
[2023-12-31 11:46] LABS: Glucose, Whole Blood 303 mg/dL (60-115)
[2023-12-31] MEDS: Doxycycline Hyclate 100 MG in 0.9 % Sodium Chloride 250 ML 166.67 MG IV ×2 (13:57→21:31)
--- NOTE | 2023-12-31 14:10 | MHC.CM.PN ---
EMR reviewed and per MD rounds, anticipating pt will be ready for [facility] and [facility]. Pt updated, aware, and in agreement with plan.
--- NOTE | 2023-12-31 15:38 | P.PNID_ITS ---
Subjective Subjective Date of Service: 12/31/23 Critical Care Time (minutes): 15 Comment: she has no oxygen requirements she has no cough she has no fever she is taking some po medication Objective Data Labs 12/31/23 06:39 12/31/23 06:39 Labs: Laboratory Results - last 24 hr 12/28/23 12/30/23 12/30/23 06:40 16:15 20:20 WBC RBC Hgb Hct MCV MCH MCHC RDW Plt Count MPV Immature Gran % (Auto) Neut % (Auto) Lymph % (Auto) Russell % (Auto) Eos % (Auto) Baso % (Auto) Lymph # (Auto) Russell # (Auto) Eos # (Auto) Baso # (Auto) Abs Immat Gran (auto) Absolute Neuts (auto) Absolute Nucleated RBC Nucleated RBC % (auto) Sodium Potassium Chloride Carbon Dioxide Anion Gap BUN Creatinine Estim Creat Clear Calc Estimated GFR POC Glucose 221 H 178 H Random Glucose Calcium IgG Total 1221 IgA Total 364 H IgM 76 SUNSHINE Interpretation 12/31/23 12/31/23 12/31/23 06:39 07:38 11:39 WBC 12.3 H RBC 2.87 L Hgb 8.3 L Hct 24.9 L MCV 86.8 MCH 28.9 MCHC 33.3 RDW 15.1 Plt Count 449 H MPV 9.2 L Immature Gran % (Auto) 0.8 H Neut % (Auto) 75.1 H Lymph % (Auto) 18.0 L Russell % (Auto) 4.8 Eos % (Auto) 1.0 Baso % (Auto) 0.3 Lymph # (Auto) 2.2 Russell # (Auto) 0.6 Eos # (Auto) 0.1 Baso # (Auto) 0.0 Abs Immat Gran (auto) 0.10 H Absolute Neuts (auto) 9.3 H Absolute Nucleated RBC 0.020 H Nucleated RBC % (auto) 0.2 Sodium 143 Potassium 2.9 L* Chloride 109 H Carbon Dioxide 24 Anion Gap 13 BUN 7 L Creatinine 0.71 Estim Creat Clear Calc 81.8 Estimated GFR > 60 POC Glucose 184 H 303 H Random Glucose 199 H Calcium 9.1 IgG Total IgA Total IgM SUNSHINE Interpretation Microbiology Microbiology Results: Microbiology 12/26/23 06:45 Blood - Venous Blood Culture - Final No growth after 5 days. 12/26/23 06:45 Blood - Venous Blood Culture - Final No growth after 5 days. 12/22/23 00:49 Blood - Venous Blood Culture - Final Escherichia coli 12/22/23 01:03 Blood - Venous Blood Culture - Final Escherichia coli 12/21/23 23:25 Urine clean catch - Clean Catch Midstream Urine Culture - Final Escherichia coli Physical Exam 2 Vital Signs: Vital Signs: Last Vital Signs Temp 97.3 F 12/31/23 11:37 Pulse 94 12/31/23 11:37 Resp 20 12/31/23 11:37 BP 165/79 H 12/31/23 11:37 Pulse Ox 95 12/31/23 11:37 O2 Del Method Room Air 12/31/23 11:37 O2 Flow Rate 2 12/28/23 04:00 BMI result Body Mass Index 30.0 Const: General: cooperative HEENT: Head: Yes normal to inspection Face and sinus: Yes normal facial exam Mouth: Normal oral and palatal mucosa present Teeth and gingiva: d entition normal Eyes: General: appearance normal, both eyes and all related structures P upils: Equal, round and reactive pupils present Resp: Effort & Inspection: normal respiratory effort Cardio: Rate: regular rate Rhythm: regular rhythm GI: Palpation (GI): Soft to palpation and nontender : General: Yes no CVA tenderness Back/Spine/Pelvis: Back: no CVA tenderness Skin: General skin exam: no rashes or lesions noted Neuro: General: moves all extremities Cranial nerves: Yes Equal, round and reactive pupils present Extrem: General: Yes normal to inspection Psych: Appearance: grossly normal Assessment and Plan Assessment and plan (1) Aspiration pneumonia: Problem details: Antibiotics done 01/02 cover E coli/aspiration,now day 06/15. Did change back to Ceftriaxone now,apparently no fever and eating Can switch to po Doxycycline next day or so for total 7 days. Continue eval clinical condition and may not need daily WBC and inflammatory parameters unless clinical condition changes Status: Acute (2) Sepsis due to gram-negative UTI: Status: Acute Time Spent With Patient Time: Total time managing care of this patient today ____ minutes.
[2023-12-31 15:54] LABS: Glucose, Whole Blood 125 mg/dL (60-115)
[2023-12-31] MEDS: cefTRIAXone sodium 1 GM in 0.9 % Sodium Chloride 50 ML IV (17:14)
[2023-12-31 20:57] LABS: Glucose, Whole Blood 193 mg/dL (60-115)
[2023-12-31] MEDS: Atorvastatin Calcium 10 MG TABLET PO (21:37)
[2024-01-01] VITALS: BP 138/71; PULSE 105; RESP 20; TEMP 36.4; O2SAT 96
[2024-01-01] MEDS: Acetaminophen 325 MG TABLET 650 MG PO ×4 (03:39→22:27)
[2024-01-01] MEDS: Baclofen 10 MG TABLET PO (03:43)
[2024-01-01 04:00] VITALS: BP 152/68; PULSE 105; RESP 20; TEMP 36.1; O2SAT 93
[2024-01-01] MEDS: Enoxaparin Sodium 40 MG/0.4 ML SYRINGE SUBCUT (04:05)
[2024-01-01 07:11] LABS: MANUAL DIFF FLAG NO
[2024-01-01 07:14] LABS: Basophils Absolute Auto 0.1 X10*3/uL (0.0-0.2); Basophils Percent Auto 0.4 % (0-2); Eosinophils Absolute Auto 0.1 X10*3/uL (0.0-0.4); Eosinophils Percent Auto 1.1 % (0-4); Hematocrit 27.1 % (37.0-47.0); Hemoglobin 8.9 g/dl (12.0-16.0); Imm Gran Abs Auto 0.08 X10*3/uL (0.00-0.03); Imm Gran Pct Auto 0.6 % (0.0-0.4); Lymphocytes Absolute Auto 2.1 X10*3/uL (1.2-4.9); Lymphocytes Percent Auto 17.2 % (20-40); Mean Corpuscular HGB Conc 32.8 g/dl (31.0-35.0); Mean Corpuscular Hemoglobin 28.6 pg (27.0-33.0); Mean Corpuscular Volume 87.1 fL (80.0-98.0); Mean Platelet Volume 9.4 fL (9.4-12.3); Monocytes Absolute Auto 0.7 X10*3/uL (0.1-1.2); Monocytes Percent Auto 5.3 % (2-11); Neutrophils Absolute Auto 9.3 x10*3/uL (2.0-8.3); Neutrophils Percent Auto 75.4 % (45-73); Platelet Count 520 X10*3/uL (160-400); Red Blood Count 3.11 X10*6/uL (4.20-5.50); Red Cell Distribution Width 14.9 % (11.0-16.0); White Blood Count 12.3 X10*3/uL (4.8-10.8)
[2024-01-01 08:00] VITALS: BP 135/80; PULSE 112; RESP 18; TEMP 36.1; O2SAT 96
[2024-01-01 08:01] LABS: Anion Gap 18 (12-20); Blood Urea Nitrogen 7 mg/dL (9-16); Calcium 9.7 mg/dL (8.4-10.2); Carbon Dioxide 21 mmol/L (22-29); Chloride 106 mmol/L (96-108); Estimated Glomerular Filt Rate > 60; Glucose Random 193 mg/dL (60-115); Sodium 142 mmol/L (135-145)
[2024-01-01 08:02] LABS: Potassium 2.8 mmol/L (3.3-5.1)
[2024-01-01 08:38] LABS: Glucose, Whole Blood 189 mg/dL (60-115)
[2024-01-01] MEDS: Metoprolol Tartrate 50 MG TABLET PO ×2 (08:43→22:25)
[2024-01-01] MEDS: amLODIPine Besylate 5 MG TABLET PO (08:43)
[2024-01-01] MEDS: Valsartan 80 MG TABLET PO (08:43)
[2024-01-01] MEDS: Insulin Lispro 100 UNIT/ML 3 ML VIAL SUBCUT ×4 (08:52→22:30)
[2024-01-01] MEDS: Doxycycline Hyclate 100 MG in 0.9 % Sodium Chloride 250 ML 166.67 MG IV (09:15)
[2024-01-01] MEDS: Potassium Chloride Packet 20 MEQ PACKET 60 MEQ PO (11:05)
[2024-01-01] MEDS: Sennosides/Docusate Sodium TABLET 2 TAB PO ×2 (11:05→22:25)
[2024-01-01] MEDS: 0.9 % Sodium Chloride Flush 3 ML SYRINGE IVFLUSH ×3 (11:05→22:28)
[2024-01-01 11:53] LABS: Glucose, Whole Blood 242 mg/dL (60-115)
[2024-01-01 12:00] VITALS: BP 120/81; PULSE 92; RESP 18; TEMP 36.1
--- NOTE | 2024-01-01 14:12 | HO.PM.IMPN ---
Subjective Subjective Date of Service: 01/01/24 Interval History: Offers no acute complaints, denies nausea vomiting, no diarrhea, chronic lower back pain unchanged, no fevers, no chills, no dysuria noted to have hypokalemia as per patient she is chronic hypokalemia and was previously on potassium replacement. Review of Systems All other system reviewed and negative Physical Exam Vital Signs: Vital Signs: Last Vital Signs Temp 97.0 F 01/01/24 12:00 Pulse 92 01/01/24 12:00 Resp 18 01/01/24 12:00 BP 120/81 01/01/24 12:00 Pulse Ox 96 01/01/24 08:00 O2 Del Method Room Air 01/01/24 12:00 O2 Flow Rate 2 12/28/23 04:00 BMI result Body Mass Index 30.0 Const: Other: General awake alert x3, sitting comfortably, in no acute distress. Neck supple no JVD. CVS regular rate rhythm, Respiratory lungs clear to auscultation, no respiratory distress, no wheeze, no rhonchi. Gastrointestinal abdomen soft, non tender, bowel sounds audible. Extremities no edema. Neuro non focal. Skin no rash. Psych appropriate affect. Back no CVA tenderness Objective Data Active Medications Acetaminophen (Acetaminophen 325 Mg Tablet) 650 mg PO Q6H PRN PRN Reason: Pain, Mild (Pain Scale 1-3) Last Admin: 01/01/24 08:44 Dose: 650 mg Documented By: ABBI Albuterol Sulfate (Albuterol Sulfate 90 Mcg 8 Gm Inhaler) 2 puff INHALE Q4H PRN PRN Reason: Shortness Of Breath Or Wheezing Amlodipine Besylate (Amlodipine Besylate 5 Mg Tablet) 5 mg PO DAILY [facility]; Protocol Last Admin: 01/01/24 08:43 Dose: 5 mg Documented By: ABBI Atorvastatin Calcium (Atorvastatin Calcium 10 Mg Tablet) 10 mg PO BEDTIME [facility] Last Admin: 12/31/23 21:37 Dose: 10 mg Documented By: STELLA Baclofen (Baclofen 10 Mg Tablet) 10 mg PO DAILY PRN PRN Reason: Muscle Spasm Last Admin: 01/01/24 03:43 Dose: 10 mg Documented By: STELLA Enoxaparin Sodium (Enoxaparin Sodium 40 Mg/0.4 Ml Syringe) 40 mg SUBCUT 0300 [facility] Last Admin: 01/01/24 04:05 Dose: 40 mg Documented By: STELLA Glucose (Glucose Gel 15 Gm Gel..Gram.) 15 gm PO Q15M PRN; Protocol PRN Reason: per Hypoglycemia Standing Ord. Dextrose (D10) 250 mls @ 750 mls/hr IV Q15M PRN; Protocol PRN Reason: per Hypoglycemia Standing Ord. Doxycycline Hyclate 100 mg/ (Sodium Chloride) 250 mls @ 166.67 mls/hr IV BID [facility] Last Infusion: 01/01/24 11:07 Dose: Infused Documented By: ABBI Ceftriaxone Sodium 1 gm/ (Sodium Chloride) 50 mls @ 100 mls/hr IV Q24H [facility] Last Infusion: 12/31/23 18:02 Dose: Infused Documented By: URIEL Insulin Human Lispro (Insulin Lispro 100 Unit/Ml 3 Ml Vial) 0 unit SUBCUT QIDACHS [facility]; Protocol Last Admin: 01/01/24 13:43 Dose: 6 unit Documented By: JOELLEN Melatonin (Melatonin 3 Mg Tablet) 6 mg PO BEDTIME PRN PRN Reason: Insomnia Last Admin: 12/22/23 21:14 Dose: 6 mg Documented By: JULIO CÉSAR Metoprolol Tartrate (Metoprolol Tartrate 50 Mg Tablet) 50 mg PO BID [facility]; Protocol Last Admin: 01/01/24 08:43 Dose: 50 mg Documented By: ABBI Pt Own (Quetiapine 400 Mg Tablet Extended Release 24 Hr) 400 mg PO BEDTIME [facility] Last Admin: 12/31/23 21:16 Dose: 400 mg Documented By: STELLA Ondansetron HCl (Ondansetron Hcl 4 Mg/2 Ml Vial) 4 mg IVPUSH Q8H PRN PRN Reason: Nausea and Vomiting Polyethylene Glycol (Polyethylene Glycol 3350 17 Gm Powd.Pack) 17 gm PO DAILY [facility] Last Admin: 01/01/24 11:05 Dose: Not Given Documented By: ABBI Non-Admin Reason: Patient Refused Senna/Docusate Sodium (Sennosides/Docusate Sodium Tablet) 2 tab PO BID [facility] Last Admin: 01/01/24 11:05 Dose: 2 tab Documented By: ABBI Sodium Chloride (0.9 % Sodium Chloride Flush 3 Ml Syringe) 3 ml IVFLUSH QSHIFT [facility] Last Admin: 01/01/24 11:05 Dose: 3 ml Documented By: ABBI Trolamine Salicylate (Trolamine Salicylate 10 % Cream 85 Gm Tube) 1 appl TOPICAL BID PRN; Protocol PRN Reason: mid back Last Admin: 12/26/23 09:19 Dose: 1 appl Documented By: JESSENIA Valsartan (Valsartan 80 Mg Tablet) 80 mg PO DAILY [facility]; Protocol Last Admin: 01/01/24 08:43 Dose: 80 mg Documented By: ABBI Labs 01/01/24 05:59 01/01/24 05:58 Labs: Laboratory Results - last 24 hr 12/31/23 12/31/23 01/01/24 15:46 20:32 05:58 MCV MCH MCHC RDW Plt Count MPV Immature Gran % (Auto) Neut % (Auto) Lymph % (Auto) Mathews % (Auto) Eos % (Auto) Baso % (Auto) Lymph # (Auto) Mathews # (Auto) Eos # (Auto) Baso # (Auto) Abs Immat Gran (auto) Absolute Neuts (auto) Absolute Nucleated RBC Nucleated RBC % (auto) Anion Gap 18 Estim Creat Clear Calc 88.0 Estimated GFR > 60 POC Glucose 125 H 193 H Random Glucose 193 H Calcium 9.7 D 01/01/24 01/01/24 01/01/24 05:59 08:06 11:37 MCV 87.1 MCH 28.6 MCHC 32.8 RDW 14.9 Plt Count 520 H MPV 9.4 Immature Gran % (Auto) 0.6 H Neut % (Auto) 75.4 H Lymph % (Auto) 17.2 L Mathews % (Auto) 5.3 Eos % (Auto) 1.1 Baso % (Auto) 0.4 Lymph # (Auto) 2.1 Mathews # (Auto) 0.7 Eos # (Auto) 0.1 Baso # (Auto) 0.1 Abs Immat Gran (auto) 0.08 H Absolute Neuts (auto) 9.3 H Absolute Nucleated RBC 0.000 Nucleated RBC % (auto) 0.0 Anion Gap Estim Creat Clear Calc Estimated GFR POC Glucose 189 H 242 H Random Glucose Calcium Assessment and Plan (1) Aspiration pneumonia: Status: Acute (2) Sepsis: Status: Acute (3) Sepsis due to gram-negative UTI: Status: Acute Plan 68yo F with DM2, HTN, HLD, mood disorder, insomnia, presenting with dysuria, admitted for sepsis with UTI with E. coli bacteremia Sepsis due to UTI/E. coli bacteremia - fletcher-sensitive E. coli, on ceftriaxone 12/21-, switched to unasyn 12/28- ; repeat BCx 12/25 negative to date - given worsening WBCs + tachycardia + high CRP, extensively searched for other sources of infection/inflammation. RVP negative, repeat CT A/P unrevealing. CTA chest neg for PE but did show ground-glass opacity of RML; started doxycycline 12-28. Tagged WBC scan with uptake in gallbadder but could be physiologic. SUNSHINE/sFLCR no monoclonal protein detected Will finish total 14 days of antibiotic will transition to by mouth antibiotic Ceftin b.i.d. Aspiration pneumonia -seen by ID she recommend doxycycline for total 7 days , will DC IV unasyn started on 12/29- , doxycycline end date-01/04 -tolerating chopped/advanced (NDD 3) diet toxic encephalopathy - due to gabapentin; discontinued due to excessive somnolence prerenal SHARON - resolved after fluid repletion hypoK - persistent hypokalemia , unknown etiology no diarrhea, no kidney failure , no vomiting , no alcohol use, no history of diabetes , no history of hypo aldosteronism will replete and follow labs hypoMg - repleted LUE swelling/pain - likely due to arthritis. removable splint; OT consulted; APAP + oxycodone prn DM2 with hyperglycemia - tammy-dose lispro HTN - continue metoprolol + amlodipine + valsartan mood disorder - continue quetiapine, clonazepam, zolpidem VTE ppx - LMWH dispo - STR In my clinical judgment, the patient requires continued inpatient hospitalization for the following reasons: IV ABX, [employer] for aspiration, placement 12/29: Called Yessy, daughter and updated over the phone, answered questions. 12/30 left voicemail Quality Stroke Does the patient have a stroke diagnosis?: No VTE Prior VTE?: No VTE Risk Level:: Medical - moderate - high VTE Device Contraindication: Treatment Not Indicated VTE Drug Contraindication: N/A - Med Ordered
[2024-01-01 15:27] LABS: Potassium 3.6 mmol/L (3.3-5.1)
[2024-01-01 15:51] VITALS: BP 132/74; PULSE 102; RESP 20; TEMP 36.1; O2SAT 96
[2024-01-01 16:00] LABS: Glucose, Whole Blood 166 mg/dL (60-115)
[2024-01-01] MEDS: cefTRIAXone sodium 1 GM in 0.9 % Sodium Chloride 50 ML IV (16:30)
[2024-01-01 19:48] VITALS: BP 125/68; PULSE 109; RESP 22; TEMP 36.1; O2SAT 96
[2024-01-01 20:17] LABS: Glucose, Whole Blood 209 mg/dL (60-115)
[2024-01-01] MEDS: Atorvastatin Calcium 10 MG TABLET PO (22:25)
[2024-01-02] VITALS (8 sets, daily range): BP systolic 118–142; BP diastolic 59–77; PULSE 70–103; RESP 18; TEMP 36–36.5; O2SAT 95–99
[2024-01-02] MEDS: Doxycycline Hyclate 100 MG in 0.9 % Sodium Chloride 250 ML 166.67 MG IV (01:02)
[2024-01-02] MEDS: Trolamine Salicylate 10 % Cream 85 GM TUBE 1 APPL TOPICAL (04:19)
[2024-01-02] MEDS: Baclofen 10 MG TABLET PO (04:21)
[2024-01-02] MEDS: Acetaminophen 325 MG TABLET 650 MG PO ×3 (04:56→21:07)
[2024-01-02] MEDS: Enoxaparin Sodium 40 MG/0.4 ML SYRINGE SUBCUT (04:56)
[2024-01-02] MEDS: Melatonin 3 MG TABLET 6 MG PO (04:56)
[2024-01-02 08:09] LABS: Glucose, Whole Blood 165 mg/dL (60-115)
[2024-01-02] MEDS: Valsartan 80 MG TABLET PO (08:55)
[2024-01-02] MEDS: Doxycycline Monohydrate 100 MG CAPSULE PO ×2 (08:55→21:02)
[2024-01-02] MEDS: Insulin Lispro 100 UNIT/ML 3 ML VIAL SUBCUT ×4 (08:55→21:02)
[2024-01-02] MEDS: cefuroxime axetiL 500 MG TABLET PO ×2 (08:56→21:02)
[2024-01-02] MEDS: Sennosides/Docusate Sodium TABLET 2 TAB PO ×2 (08:56→21:02)
[2024-01-02] MEDS: Metoprolol Tartrate 50 MG TABLET PO ×2 (08:56→21:02)
[2024-01-02] MEDS: 0.9 % Sodium Chloride Flush 3 ML SYRINGE IVFLUSH ×2 (08:57→18:34)
[2024-01-02] MEDS: polyethylene glycoL 3350 17 GM POWD.PACK PO (08:57)
[2024-01-02] MEDS: amLODIPine Besylate 5 MG TABLET PO (09:30)
[2024-01-02 12:25] LABS: Glucose, Whole Blood 279 mg/dL (60-115)
--- NOTE | 2024-01-02 13:38 | HO.PM.IMPN ---
Subjective Subjective Date of Service: 01/02/24 Interval History: Being followed for sepsis due to UTI/E coli bacteremia and toxic encephalopathy Complaining of lower back discomfort, denies constipation, no dysuria, no fevers, no chills, no other acute issues overnight also requesting for Klonopin. Review of Systems All other system reviewed and are negative Physical Exam Vital Signs: Vital Signs: Last Vital Signs Temp 97.0 F 01/02/24 11:45 Pulse 70 01/02/24 11:45 Resp 18 01/02/24 11:45 BP 123/70 01/02/24 11:45 Pulse Ox 97 01/02/24 11:45 O2 Del Method Room Air 01/02/24 11:45 O2 Flow Rate 2 12/28/23 04:00 BMI result Body Mass Index 30.0 Const: Other: General awake alert x3, sitting comfortably, in no acute distress. Neck supple no JVD. CVS regular rate rhythm, Respiratory lungs clear to auscultation, no respiratory distress, no wheeze, no rhonchi. Gastrointestinal abdomen soft, non tender, bowel sounds audible. Extremities no edema. Neuro non focal. Skin no rash. Psych appropriate affect. Back no CVA tenderness Objective Data Active Medications Acetaminophen (Acetaminophen 325 Mg Tablet) 650 mg PO Q6H PRN PRN Reason: Pain, Mild (Pain Scale 1-3) Last Admin: 01/02/24 04:56 Dose: 650 mg Documented By: STELLA Albuterol Sulfate (Albuterol Sulfate 90 Mcg 8 Gm Inhaler) 2 puff INHALE Q4H PRN PRN Reason: Shortness Of Breath Or Wheezing Amlodipine Besylate (Amlodipine Besylate 5 Mg Tablet) 5 mg PO DAILY [facility]; Protocol Last Admin: 01/01/24 08:43 Dose: 5 mg Documented By: ABBI Atorvastatin Calcium (Atorvastatin Calcium 10 Mg Tablet) 10 mg PO BEDTIME [facility] Last Admin: 01/01/24 22:25 Dose: 10 mg Documented By: STELLA Baclofen (Baclofen 10 Mg Tablet) 10 mg PO DAILY PRN PRN Reason: Muscle Spasm Last Admin: 01/02/24 04:21 Dose: 10 mg Documented By: STELLA Cefuroxime Axetil (Cefuroxime Axetil 500 Mg Tablet) 500 mg PO Q12H [facility] Last Admin: 01/02/24 08:56 Dose: 500 mg Documented By: ABBI Doxycycline Monohydrate (Doxycycline Monohydrate 100 Mg Capsule) 100 mg PO Q12H [facility] Last Admin: 01/02/24 08:55 Dose: 100 mg Documented By: ABBI Enoxaparin Sodium (Enoxaparin Sodium 40 Mg/0.4 Ml Syringe) 40 mg SUBCUT 0300 [facility] Last Admin: 01/02/24 04:56 Dose: 40 mg Documented By: STELLA Glucose (Glucose Gel 15 Gm Gel..Gram.) 15 gm PO Q15M PRN; Protocol PRN Reason: per Hypoglycemia Standing Ord. Dextrose (D10) 250 mls @ 750 mls/hr IV Q15M PRN; Protocol PRN Reason: per Hypoglycemia Standing Ord. Insulin Human Lispro (Insulin Lispro 100 Unit/Ml 3 Ml Vial) 0 unit SUBCUT QIDACHS [facility]; Protocol Last Admin: 01/02/24 08:55 Dose: 2 unit Documented By: ABBI Melatonin (Melatonin 3 Mg Tablet) 6 mg PO BEDTIME PRN PRN Reason: Insomnia Last Admin: 01/02/24 04:56 Dose: 6 mg Documented By: STELLA Metoprolol Tartrate (Metoprolol Tartrate 50 Mg Tablet) 50 mg PO BID [facility]; Protocol Last Admin: 01/02/24 08:56 Dose: 50 mg Documented By: ABBI Pt Own (Quetiapine 400 Mg Tablet Extended Release 24 Hr) 400 mg PO BEDTIME [facility] Last Admin: 01/01/24 22:24 Dose: 400 mg Documented By: STELLA Ondansetron HCl (Ondansetron Hcl 4 Mg/2 Ml Vial) 4 mg IVPUSH Q8H PRN PRN Reason: Nausea and Vomiting Polyethylene Glycol (Polyethylene Glycol 3350 17 Gm Powd.Pack) 17 gm PO DAILY [facility] Last Admin: 01/02/24 08:57 Dose: 17 gm Documented By: ABBI Senna/Docusate Sodium (Sennosides/Docusate Sodium Tablet) 2 tab PO BID [facility] Last Admin: 01/02/24 08:56 Dose: 2 tab Documented By: ABBI Sodium Chloride (0.9 % Sodium Chloride Flush 3 Ml Syringe) 3 ml IVFLUSH QSHIFT [facility] Last Admin: 01/02/24 08:57 Dose: 3 ml Documented By: ABBI Trolamine Salicylate (Trolamine Salicylate 10 % Cream 85 Gm Tube) 1 appl TOPICAL BID PRN; Protocol PRN Reason: mid back Last Admin: 01/02/24 04:19 Dose: 1 appl Documented By: STELLA Valsartan (Valsartan 80 Mg Tablet) 80 mg PO DAILY [facility]; Protocol Last Admin: 01/02/24 08:55 Dose: 80 mg Documented By: ABBI Labs 01/01/24 05:59 01/01/24 14:56 Labs: Laboratory Results - last 24 hr 01/01/24 01/01/24 01/02/24 15:54 19:58 07:40 POC Glucose 166 H 209 H 165 H 01/02/24 12:02 POC Glucose 279 H Assessment and Plan (1) Aspiration pneumonia: Status: Acute (2) Sepsis: Status: Acute (3) Sepsis due to gram-negative UTI: Status: Acute Plan 68yo F with DM2, HTN, HLD, mood disorder, insomnia, presenting with dysuria, admitted for sepsis with UTI with E. coli bacteremia Sepsis due to UTI/E. coli bacteremia -no recurrent fevers, no dysuria - fletcher-sensitive E. coli, on ceftriaxone 12/21-, switched to unasyn 12/28- ; repeat BCx 12/25 negative to date - given worsening WBCs + tachycardia + high CRP, extensively searched for other sources of infection/inflammation. RVP negative, repeat CT A/P unrevealing. CTA chest neg for PE but did show ground-glass opacity of RML; started doxycycline 12-28. Tagged WBC scan with uptake in gallbadder but could be physiologic. SUNSHINE/sFLCR no monoclonal protein detected Will finish total 14 days of antibiotic will transition to by mouth antibiotic Ceftin 500mg b.i.d. Aspiration pneumonia -seen by ID she recommend doxycycline for total 7 days , doxycycline end date-01/04 -tolerating chopped/advanced (NDD 3) diet toxic encephalopathy - due to gabapentin; discontinued due to excessive somnolence prerenal SHARON - resolved after fluid repletion hypoK - repleted and normalized , unknown etiology no diarrhea, no kidney failure , no vomiting , no alcohol use, no history of diabetes , no history of hypo aldosteronism hypoMg - repleted LUE swelling/pain - likely due to arthritis. removable splint; OT consulted; APAP + oxycodone prn DM2 with hyperglycemia -elevated blood sugars, metformin on hold, continue diabetic diet and insulin sliding scale,adjust dose HTN - stable blood pressure continue metoprolol + amlodipine + valsartan mood disorder - continue quetiapine, clonazepam, zolpidem VTE ppx - LMWH dispo - STR In my clinical judgment, the patient requires continued inpatient hospitalization for the following reasons: Close clinical monitoring , safe disposition to rehab. Quality Stroke Does the patient have a stroke diagnosis?: No VTE Prior VTE?: No VTE Risk Level:: Medical - moderate - high VTE Device Contraindication: Treatment Not Indicated VTE Drug Contraindication: N/A - Med Ordered
[2024-01-02 16:34] LABS: Glucose, Whole Blood 213 mg/dL (60-115)
[2024-01-02 20:48] LABS: Glucose, Whole Blood 195 mg/dL (60-115)
[2024-01-02] MEDS: Atorvastatin Calcium 10 MG TABLET PO (21:02)
[2024-01-03] VITALS (8 sets, daily range): BP systolic 129–157; BP diastolic 69–87; PULSE 96–104; RESP 18–20; TEMP 36.1–37.3; O2SAT 96–99
[2024-01-03] MEDS: 0.9 % Sodium Chloride Flush 3 ML SYRINGE IVFLUSH ×4 (02:15→21:25)
[2024-01-03] MEDS: clonazePAM 0.5 MG TABLET PO ×2 (02:18→23:13)
[2024-01-03] MEDS: Enoxaparin Sodium 40 MG/0.4 ML SYRINGE SUBCUT (03:17)
[2024-01-03 07:36] LABS: Glucose, Whole Blood 160 mg/dL (60-115)
[2024-01-03] MEDS: polyethylene glycoL 3350 17 GM POWD.PACK PO (08:18)
[2024-01-03] MEDS: Acetaminophen 325 MG TABLET 650 MG PO ×3 (08:19→23:13)
[2024-01-03] MEDS: Insulin Lispro 100 UNIT/ML 3 ML VIAL SUBCUT ×4 (08:19→21:25)
[2024-01-03] MEDS: amLODIPine Besylate 5 MG TABLET PO (08:19)
[2024-01-03] MEDS: Sennosides/Docusate Sodium TABLET 2 TAB PO ×2 (08:20→21:24)
[2024-01-03] MEDS: Doxycycline Monohydrate 100 MG CAPSULE PO ×2 (08:20→21:25)
[2024-01-03] MEDS: cefuroxime axetiL 500 MG TABLET PO ×2 (08:20→21:25)
[2024-01-03] MEDS: Valsartan 80 MG TABLET PO (08:20)
[2024-01-03] MEDS: Metoprolol Tartrate 50 MG TABLET PO ×2 (08:20→21:25)
[2024-01-03 11:51] LABS: Glucose, Whole Blood 297 mg/dL (60-115)
[2024-01-03] MEDS: Baclofen 10 MG TABLET PO (11:58)
--- NOTE | 2024-01-03 15:35 | HO.PM.IMPN ---
Subjective Subjective Date of Service: 01/03/24 Interval History: Complaining of right foot swelling, no other acute issues no dysuria no fevers no chills tolerating diet no nausea, no vomiting, no chest pain, no palpitations, no acute events overnight. Review of Systems All other system reviewed and negative Physical Exam Vital Signs: Vital Signs: Last Vital Signs Temp 97.0 F 01/03/24 11:40 Pulse 103 H 01/03/24 12:14 Resp 20 01/03/24 11:40 BP 129/70 01/03/24 11:40 Pulse Ox 97 01/03/24 11:40 O2 Del Method Room Air 01/03/24 11:40 O2 Flow Rate 2 12/28/23 04:00 BMI result Body Mass Index 30.0 Const: Other: General awake alert x3, sitting comfortably, in no acute distress. Neck supple no JVD. CVS regular rate rhythm, Respiratory lungs clear to auscultation, no respiratory distress, no wheeze, no rhonchi. Gastrointestinal abdomen soft, non tender, bowel sounds audible. Extremities swelling dorsum of right foot, no redness, no warmth (history of right ankle surgery) Neuro non focal. Skin no rash. Psych appropriate affect. Back no CVA tenderness Objective Data Active Medications Acetaminophen (Acetaminophen 325 Mg Tablet) 650 mg PO Q6H PRN PRN Reason: Pain, Mild (Pain Scale 1-3) Last Admin: 01/03/24 08:19 Dose: 650 mg Documented By: URIEL Albuterol Sulfate (Albuterol Sulfate 90 Mcg 8 Gm Inhaler) 2 puff INHALE Q4H PRN PRN Reason: Shortness Of Breath Or Wheezing Amlodipine Besylate (Amlodipine Besylate 5 Mg Tablet) 5 mg PO DAILY [facility]; Protocol Last Admin: 01/03/24 08:19 Dose: 5 mg Documented By: URIEL Atorvastatin Calcium (Atorvastatin Calcium 10 Mg Tablet) 10 mg PO BEDTIME [facility] Last Admin: 01/02/24 21:02 Dose: 10 mg Documented By: VARUNARBrii Baclofen (Baclofen 10 Mg Tablet) 10 mg PO DAILY PRN PRN Reason: Muscle Spasm Last Admin: 01/03/24 11:58 Dose: 10 mg Documented By: URIEL Cefuroxime Axetil (Cefuroxime Axetil 500 Mg Tablet) 500 mg PO Q12H [facility] Last Admin: 01/03/24 08:20 Dose: 500 mg Documented By: URIEL Clonazepam (Clonazepam 0.5 Mg Tablet) 0.5 mg PO BID PRN PRN Reason: anxiety Last Admin: 01/03/24 02:18 Dose: 0.5 mg Documented By: ANDRE Doxycycline Monohydrate (Doxycycline Monohydrate 100 Mg Capsule) 100 mg PO Q12H [facility] Last Admin: 01/03/24 08:20 Dose: 100 mg Documented By: URIEL Enoxaparin Sodium (Enoxaparin Sodium 40 Mg/0.4 Ml Syringe) 40 mg SUBCUT 0300 [facility] Last Admin: 01/03/24 03:17 Dose: 40 mg Documented By: ANDRE Glucose (Glucose Gel 15 Gm Gel..Gram.) 15 gm PO Q15M PRN; Protocol PRN Reason: per Hypoglycemia Standing Ord. Dextrose (D10) 250 mls @ 750 mls/hr IV Q15M PRN; Protocol PRN Reason: per Hypoglycemia Standing Ord. Insulin Human Lispro (Insulin Lispro 100 Unit/Ml 3 Ml Vial) 0 unit SUBCUT QIDACHS [facility]; Protocol Last Admin: 01/03/24 11:58 Dose: 9 unit Documented By: URIEL Melatonin (Melatonin 3 Mg Tablet) 6 mg PO BEDTIME PRN PRN Reason: Insomnia Last Admin: 01/02/24 04:56 Dose: 6 mg Documented By: STELLA Metoprolol Tartrate (Metoprolol Tartrate 50 Mg Tablet) 50 mg PO BID [facility]; Protocol Last Admin: 01/03/24 08:20 Dose: 50 mg Documented By: URIEL Pt Own (Quetiapine 400 Mg Tablet Extended Release 24 Hr) 400 mg PO BEDTIME [facility] Last Admin: 01/02/24 21:01 Dose: 400 mg Documented By: MOOSE Ondansetron HCl (Ondansetron Hcl 4 Mg/2 Ml Vial) 4 mg IVPUSH Q8H PRN PRN Reason: Nausea and Vomiting Polyethylene Glycol (Polyethylene Glycol 3350 17 Gm Powd.Pack) 17 gm PO DAILY [facility] Last Admin: 01/03/24 08:18 Dose: 17 gm Documented By: URIEL Senna/Docusate Sodium (Sennosides/Docusate Sodium Tablet) 2 tab PO BID [facility] Last Admin: 01/03/24 08:20 Dose: 2 tab Documented By: URIEL Sodium Chloride (0.9 % Sodium Chloride Flush 3 Ml Syringe) 3 ml IVFLUSH QSHIFT [facility] Last Admin: 01/03/24 08:21 Dose: 3 ml Documented By: URIEL Trolamine Salicylate (Trolamine Salicylate 10 % Cream 85 Gm Tube) 1 appl TOPICAL BID PRN; Protocol PRN Reason: mid back Last Admin: 01/02/24 04:19 Dose: 1 appl Documented By: STELLA Valsartan (Valsartan 80 Mg Tablet) 80 mg PO DAILY [facility]; Protocol Last Admin: 01/03/24 08:20 Dose: 80 mg Documented By: URIEL Labs 01/01/24 05:59 01/01/24 14:56 Labs: Laboratory Results - last 24 hr 01/02/24 01/02/24 01/03/24 16:18 20:41 07:25 POC Glucose 213 H 195 H 160 H 01/03/24 11:46 POC Glucose 297 H Assessment and Plan (1) Aspiration pneumonia: Status: Acute (2) Sepsis: Status: Acute (3) Sepsis due to gram-negative UTI: Status: Acute Plan 68yo F with DM2, HTN, HLD, mood disorder, insomnia, presenting with dysuria, admitted for sepsis with UTI with E. coli bacteremia Sepsis due to UTI/E. coli bacteremia -no recurrent fevers, no dysuria - fletcher-sensitive E. coli, on ceftriaxone 12/21-, switched to unasyn 12/28- ; repeat BCx 12/25 negative to date - given worsening WBCs + tachycardia + high CRP, extensively searched for other sources of infection/inflammation. RVP negative, repeat CT A/P unrevealing. CTA chest neg for PE but did show ground-glass opacity of RML; started doxycycline 12-28. Tagged WBC scan with uptake in gallbadder but could be physiologic. SUNSHINE/sFLCR no monoclonal protein detected on by mouth antibiotic Ceftin 500mg b.i.d. end date 01/04 Aspiration pneumonia -seen by ID she recommend doxycycline for total 7 days , doxycycline end date-01/04 -tolerating chopped/advanced (NDD 3) diet toxic encephalopathy - due to gabapentin; discontinued due to excessive somnolence prerenal SHARON - resolved after fluid repletion hypoK - repleted and normalized , unknown etiology no diarrhea, no kidney failure , no vomiting , no alcohol use, no history of diabetes , no history of hypo aldosteronism hypoMg - repleted Right foot swelling likely due to prior surgery of ankle and being in bed recommend to keep legs elevated. DM2 with hyperglycemia -elevated blood sugars, continue diabetic diet and insulin sliding scale, resume metformin HTN - stable blood pressure continue metoprolol + amlodipine + valsartan mood disorder - continue quetiapine, clonazepam, zolpidem VTE ppx - LMWH dispo - STR In my clinical judgment, the patient requires continued inpatient hospitalization for the following reasons: Close clinical monitoring , safe disposition to rehab. Quality Stroke Does the patient have a stroke diagnosis?: No VTE Prior VTE?: No VTE Risk Level:: Medical - moderate - high VTE Device Contraindication: Treatment Not Indicated VTE Drug Contraindication: N/A - Med Ordered
--- NOTE | 2024-01-03 15:53 | MHC.CM.PN ---
EMR reviewed and per MD rounds, pt is medically cleared for discharge to [facility] pending insurance authorization. Per weekend communication via [facility], [place] has been having a hard time getting the authorization from [facility]. [facility] was sent clinical updates to submit to [facility].
[2024-01-03 16:51] LABS: Glucose, Whole Blood 182 mg/dL (60-115)
[2024-01-03 21:00] LABS: Glucose, Whole Blood 198 mg/dL (60-115)
[2024-01-03] MEDS: Atorvastatin Calcium 10 MG TABLET PO (21:24)
[2024-01-03] MEDS: Melatonin 3 MG TABLET 6 MG PO (21:24)
[2024-01-03] MEDS: metFORMIN HCl 1,000 MG TABLET 1000 MG PO (21:25)
[2024-01-04] VITALS (8 sets, daily range): BP systolic 89–132; BP diastolic 51–71; PULSE 84–94; RESP 18–20; TEMP 36.1–36.6; O2SAT 94–96
[2024-01-04] MEDS: Enoxaparin Sodium 40 MG/0.4 ML SYRINGE SUBCUT (03:55)
[2024-01-04 07:06] LABS: Glucose, Whole Blood 149 mg/dL (60-115)
[2024-01-04] MEDS: Insulin Lispro 100 UNIT/ML 3 ML VIAL SUBCUT ×3 (09:39→20:24)
[2024-01-04] MEDS: 0.9 % Sodium Chloride Flush 3 ML SYRINGE IVFLUSH (09:40)
[2024-01-04] MEDS: cefuroxime axetiL 500 MG TABLET PO ×2 (09:41→20:23)
[2024-01-04] MEDS: Doxycycline Monohydrate 100 MG CAPSULE PO ×2 (09:41→20:23)
[2024-01-04] MEDS: amLODIPine Besylate 5 MG TABLET PO (09:41)
[2024-01-04] MEDS: Valsartan 80 MG TABLET PO (09:41)
[2024-01-04] MEDS: Sennosides/Docusate Sodium TABLET 2 TAB PO (09:41)
[2024-01-04] MEDS: metFORMIN HCl 1,000 MG TABLET 1000 MG PO ×2 (09:42→20:23)
[2024-01-04] MEDS: Metoprolol Tartrate 50 MG TABLET PO ×2 (09:42→20:24)
[2024-01-04 10:55] LABS: Glucose, Whole Blood 225 mg/dL (60-115)
[2024-01-04] MEDS: Acetaminophen 325 MG TABLET 650 MG PO (11:52)
--- NOTE | 2024-01-04 15:31 | P.PNIM_ITS ---
Subjective Subjective Date of Service: 01/04/24 Interval History: Being followed for sepsis due to UTI/E coli bacteremia. Offers no acute complaints of fever chills, tolerating diet participating with physical therapy no acute events overnight. Review of Systems All other system reviewed and negative Physical Exam 2 Vital Signs: Vital Signs: Last Vital Signs Temp 97.9 F 01/04/24 15:15 Pulse 85 01/04/24 15:15 Resp 18 01/04/24 15:15 BP 129/67 01/04/24 15:15 Pulse Ox 95 01/04/24 15:15 O2 Del Method Room Air 01/04/24 15:15 O2 Flow Rate 2 12/28/23 04:00 BMI result Body Mass Index 30.0 Const: Other: General awake alert x3, sitting comfortably, in no acute distress. Neck supple no JVD. CVS regular rate rhythm, Respiratory lungs clear to auscultation, no respiratory distress, no wheeze, no rhonchi. Gastrointestinal abdomen soft, non tender, bowel sounds audible. Extremities right foot swelling improving, no redness, no warmth (history of right ankle surgery) Neuro non focal. Skin no rash. Psych appropriate affect. Back no CVA tenderness Objective Data Active Medications Acetaminophen (Acetaminophen 325 Mg Tablet) 650 mg PO Q6H PRN PRN Reason: Pain, Mild (Pain Scale 1-3) Last Admin: 01/04/24 11:52 Dose: 650 mg Documented By: AUTUMN Albuterol Sulfate (Albuterol Sulfate 90 Mcg 8 Gm Inhaler) 2 puff INHALE Q4H PRN PRN Reason: Shortness Of Breath Or Wheezing Amlodipine Besylate (Amlodipine Besylate 5 Mg Tablet) 5 mg PO DAILY [facility]; Protocol Last Admin: 01/04/24 09:41 Dose: 5 mg Documented By: MITESH Atorvastatin Calcium (Atorvastatin Calcium 10 Mg Tablet) 10 mg PO BEDTIME [facility] Last Admin: 01/03/24 21:24 Dose: 10 mg Documented By: BLAKE-MARGARETLA Baclofen (Baclofen 10 Mg Tablet) 10 mg PO DAILY PRN PRN Reason: Muscle Spasm Last Admin: 01/03/24 11:58 Dose: 10 mg Documented By: URIEL Cefuroxime Axetil (Cefuroxime Axetil 500 Mg Tablet) 500 mg PO Q12H [facility] Last Admin: 01/04/24 09:41 Dose: 500 mg Documented By: MITESH Clonazepam (Clonazepam 0.5 Mg Tablet) 0.5 mg PO BID PRN PRN Reason: anxiety Last Admin: 01/03/24 23:13 Dose: 0.5 mg Documented By: HOLLIE Doxycycline Monohydrate (Doxycycline Monohydrate 100 Mg Capsule) 100 mg PO Q12H [facility] Last Admin: 01/04/24 09:41 Dose: 100 mg Documented By: MITESH Enoxaparin Sodium (Enoxaparin Sodium 40 Mg/0.4 Ml Syringe) 40 mg SUBCUT 0300 [facility] Last Admin: 01/04/24 03:55 Dose: 40 mg Documented By: HOLLIE Glucose (Glucose Gel 15 Gm Gel..Gram.) 15 gm PO Q15M PRN; Protocol PRN Reason: per Hypoglycemia Standing Ord. Dextrose (D10) 250 mls @ 750 mls/hr IV Q15M PRN; Protocol PRN Reason: per Hypoglycemia Standing Ord. Insulin Human Lispro (Insulin Lispro 100 Unit/Ml 3 Ml Vial) 0 unit SUBCUT QIDACHS [facility]; Protocol Last Admin: 01/04/24 11:51 Dose: 6 unit Documented By: AUTUMN Melatonin (Melatonin 3 Mg Tablet) 6 mg PO BEDTIME PRN PRN Reason: Insomnia Last Admin: 01/03/24 21:24 Dose: 6 mg Documented By: HOLLIE Metformin HCl (Metformin Hcl 1,000 Mg Tablet) 1,000 mg PO BID [facility] Last Admin: 01/04/24 09:42 Dose: 1,000 mg Documented By: MITESH Metoprolol Tartrate (Metoprolol Tartrate 50 Mg Tablet) 50 mg PO BID [facility]; Protocol Last Admin: 01/04/24 09:42 Dose: 50 mg Documented By: MITESH Pt Own (Quetiapine 400 Mg Tablet Extended Release 24 Hr) 400 mg PO BEDTIME [facility] Last Admin: 01/03/24 21:24 Dose: 400 mg Documented By: HOLLIE Ondansetron HCl (Ondansetron Hcl 4 Mg/2 Ml Vial) 4 mg IVPUSH Q8H PRN PRN Reason: Nausea and Vomiting Polyethylene Glycol (Polyethylene Glycol 3350 17 Gm Powd.Pack) 17 gm PO DAILY [facility] Last Admin: 01/04/24 09:40 Dose: Not Given Documented By: MITESH Non-Admin Reason: Patient Refused Senna/Docusate Sodium (Sennosides/Docusate Sodium Tablet) 2 tab PO BID [facility] Last Admin: 01/04/24 09:41 Dose: 2 tab Documented By: MITESH Sodium Chloride (0.9 % Sodium Chloride Flush 3 Ml Syringe) 3 ml IVFLUSH QSHIFT [facility] Last Admin: 01/04/24 09:40 Dose: 3 ml Documented By: MITESH Trolamine Salicylate (Trolamine Salicylate 10 % Cream 85 Gm Tube) 1 appl TOPICAL BID PRN; Protocol PRN Reason: mid back Last Admin: 01/02/24 04:19 Dose: 1 appl Documented By: STELLA Valsartan (Valsartan 80 Mg Tablet) 80 mg PO DAILY [facility]; Protocol Last Admin: 01/04/24 09:41 Dose: 80 mg Documented By: MITESH Labs 01/01/24 05:59 01/01/24 14:56 Labs: Laboratory Results - last 24 hr 01/03/24 01/03/24 01/04/24 16:47 20:56 06:57 POC Glucose 182 H 198 H 149 H 01/04/24 10:48 POC Glucose 225 H Assessment and Plan (1) Aspiration pneumonia: Status: Acute (2) Sepsis: Status: Acute (3) Sepsis due to gram-negative UTI: Status: Acute Plan 68yo F with DM2, HTN, HLD, mood disorder, insomnia, presenting with dysuria, admitted for sepsis with UTI with E. coli bacteremia Sepsis due to UTI/E. coli bacteremia -no recurrent fevers, no dysuria -fletcher-sensitive E. coli, on ceftriaxone 12/21-, switched to unasyn 12/28- ; repeat BCx 12/25 negative to date -given worsening WBCs + tachycardia + high CRP, extensively searched for other sources of infection/inflammation. RVP negative, repeat CT A/P unrevealing. CTA chest neg for PE but did show ground-glass opacity of RML; started doxycycline 12-28. Tagged WBC scan with uptake in gallbadder but could be physiologic. SUNSHINE/sFLCR no monoclonal protein detected on by mouth antibiotic Ceftin 500mg b.i.d. end date 01/04 Aspiration pneumonia -seen by ID she recommend doxycycline for total 7 days , doxycycline end date- 01/04 -tolerating chopped/advanced (NDD 3) diet toxic encephalopathy - due to gabapentin; discontinued due to excessive somnolence prerenal SHARON - resolved after fluid repletion hypoK - repleted and normalized , unknown etiology no diarrhea, no kidney failure , no vomiting , no alcohol use, no history of diabetes , no history of hypo aldosteronism hypoMg - repleted Right foot swelling likely due to prior surgery of ankle and being in bed recommend to keep legs elevated. DM2 with hyperglycemia -elevated blood sugars, continue diabetic diet and insulin sliding scale, and metformin HTN - stable blood pressure continue metoprolol + amlodipine + valsartan mood disorder - continue quetiapine, clonazepam, zolpidem VTE ppx - LMWH dispo - STR In my clinical judgment, the patient requires continued inpatient hospitalization for the following reasons: Close clinical monitoring , safe disposition to rehab. Quality Stroke Does the patient have a stroke diagnosis?: No VTE Prior VTE?: No VTE Risk Level:: Medical - moderate - high VTE Device Contraindication: Treatment Not Indicated VTE Drug Contraindication: N/A - Med Ordered
--- NOTE | 2024-01-04 15:38 | PM.DS ---
DS: Providers Provider Date of Service: 01/04/24 Date of admission: 12/22/23 02:23 Primary care physician: Malu Fermin MD Consults: 12/27/23 08:20 Consult to Infectious Diseases Routine Consulting Provider: [facility] Reason for consultation: worsening leukocytosis/tachycardia despite tx for E coli bacteremia DS: Diagnosis Discharge Diagnosis (1) Aspiration pneumonia: Status: Acute (2) Sepsis: Status: Acute (3) Sepsis due to gram-negative UTI: Status: Acute DS: Summary Hospital Course Hospital Course: History of presenting illness: Date of Service: 12/22/23 Chief Complaint: Dysuria This is a 68 year old female with pertinent history of non insulin dependent diabetes milletus, hypertension, mixed hyperlipidemia, mood disorder, insomnia who presents to the emergency department for evaluation of dysuria. Patient states her symptoms started 3 days prior to presentation. She has been having increased urinary frequency with dysuria. Also has been having chills with nausea. Admits poor p.o. intake. Patient has associated right lower back pain. No history of UTI in the past. No documented fever, chest discomfort, palpitations, shortness of breath, changes in bowel habits. In the ER, patient was found to be septic and urine concerning for UTI (UA with nitrites positive, greater than 50 WBC, 4+ bacteria). Kidney function found to be elevated with creatinine 1.88. Hospital course: 68yo F with DM2, HTN, HLD, mood disorder, insomnia, presenting with dysuria, admitted for sepsis with UTI with E. coli bacteremia, treated with IV ceftriaxone, repeat blood cultures 12/25 are negative due to worsening WBC, and high CRP head CTA chest that showed no PE but showed ground-glass opacity right middle lobe ,therefore treated with doxycycline for possible pneumonia as well, patient is currently on Ceftin 500 mg b.i.d. will require 3 more dosages to finish a total 14 day course of antibiotic, and in regard to doxycycline also need 3 more dosages to finish a total 7 day course of antibiotics, patient has no recurrent fevers WBC count is improved, she is hemodynamically stable and is being discharged to rehab facility. Acute toxic encephalopathy resolved was likely due to infection and multiple sedatives, gabapentin and Ambien discontinued. prerenal SHARON likely due to sepsis resolved with IV fluids. hypoKalemia - repleted and normalized , unknown etiology no diarrhea, no kidney failure , no vomiting , no alcohol use, no history of hypo aldosteronism. hypoMg repleted and normalized. Right foot swelling likely due to prior surgery of ankle and being in bed recommend to keep legs elevated. DM2 with hyperglycemia, noted to have elevated blood sugars recommend to follow diabetic diet continue metformin 1000 mg b.i.d. and follow insulin sliding scale, recommend glipizide 5 mg daily if noted to have persistent elevated blood sugars. HTN continue metoprolol + amlodipine and valsartan blood pressure remains stable. mood disorder and insomnia continue quetiapine, clonazepam, gabapentin and ambien discontinued due to daytime somnolence. Time Attestation Discharge Coordination Time (in mins): 40 Quality: Safe Use of Opioids Does Pt have an Active Cancer Diagnosis on the Problem List?: No Quality: Stroke Does the patient have a stroke diagnosis?: No Physical Exam Vital Signs: Vital Signs: Last Vital Signs Temp 97.9 F 01/04/24 15:15 Pulse 85 01/04/24 15:15 Resp 18 01/04/24 15:15 BP 129/67 01/04/24 15:15 Pulse Ox 95 01/04/24 15:15 O2 Del Method Room Air 01/04/24 15:15 O2 Flow Rate 2 12/28/23 04:00 BMI result Body Mass Index 30.0 Const: Other: General awake alert x3, in no acute distress. Neck supple no JVD. CVS regular rate rhythm, Respiratory lungs clear to auscultation, no respiratory distress, no wheeze, no rhonchi. Gastrointestinal abdomen soft, non tender, bowel sounds audible. Extremities right foot swelling improving, no redness, no warmth (history of right ankle surgery) Neuro non focal. Skin no rash. Psych appropriate affect. Back no CVA tenderness DS: Data Data Completed and Pending Labs on day of discharge: Laboratory Results - last 24 hr 01/03/24 01/03/24 01/04/24 16:47 20:56 06:57 POC Glucose 182 H 198 H 149 H 01/04/24 10:48 POC Glucose 225 H Discharge Plan Discharge Anticipated Discharge Date/Time: 01/04/24 15:38 Patient Disposition: Xfer SNF Discharge Diagnosis: Sepsis due to UTI Aspiration pneumonia Referrals: Jayesh [Other] - 1 Week Malu Fermin MD [Primary Care Provider] - 1 Week Discharge Medications: New doxycycline monohydrate 100 mg Capsule 100 mg PO Q12H Qty: 3 0RF cefuroxime axetil 500 mg Tablet 500 mg PO Q12H Qty: 3 0RF polyethylene glycol 3350 17 gram Powder In Packet 17 g PO DAILY Qty: 30 0RF insulin lispro [Admelog U-100 Insulin lispro] 100 unit/mL Solution See Protocol subcut QIDACHS Qty: 10 0RF Protocol: Insulin Correction Scale Less than or equal to 110 ---- Give (units): 0 111 to 150 Give (units): 2 151 to 200 Give (units): 4 201 to 250 Give (units): 6 251 to 300 Give (units): 9 301 to 350 Give (units): 12 Greater than 350 Give (units): 15 Call MD if Blood Glucose > : 350 trolamine salicylate [Aspercreme] 10 % Cream 1 appl topical BID PRN (Reason: mid back) Qty: 1 0RF Protocol: Apply to: Apply to: mid pack Continued amlodipine 5 mg tablet 5 mg PO DAILY clonazepam 0.5 mg tablet 0.5 mg PO BID PRN (Reason: Anxiety) sennosides-docusate sodium [Senna Plus] 8.6-50 mg tablet 2 tab PO BEDTIME PRN (Reason: constipation) valsartan 80 mg tablet 80 mg PO DAILY baclofen 10 mg tablet 10 mg PO DAILY PRN (Reason: Muscle Spasm) simvastatin 20 mg tablet 20 mg PO BEDTIME metformin 1,000 mg tablet 1,000 mg PO BID metoprolol tartrate 50 mg tablet 50 mg PO BID albuterol sulfate 90 mcg/actuation Hfa Aerosol Inhaler 2 puff INHALATION Q4H PRN (Reason: Shortness Of Breath Or Wheezing) quetiapine 400 mg tablet extended release 24 hr 400 mg PO BEDTIME Discontinued zolpidem 10 mg tablet 10 mg PO BEDTIME ibuprofen 800 mg tablet 800 mg PO DAILY PRN (Reason: Pain) gabapentin 300 mg capsule 300 mg PO TID PRN (Reason: Pain) Discharge Orders: Discharge Order (Routine); Ordered 01/04/24 Ordered By: Artis Garcia Diet: Diabetic diet Activity on Discharge: As tolerated Stand Alone Forms: Patient Portal Discharge page Print Language: Azeri Care Plan Goals: Sepsis due to E coli bacteremia/ UTI take 3 more pills of Ceftin 500 mg to finish a total 14 day course of antibiotic Take doxycycline 1 tablet twice daily for 3 more dosages Continue all home medications as prescribed Health Concerns: Diabetes mellitus type 2 with hyperglycemia follow diabetic diet and monitor blood sugars qid ac/hs Hypertension Mood disorder/insomnia Plan of Treatment: Outpatient follow-up with primary care physician call Assessment: As above
--- NOTE | 2024-01-04 15:55 | MHC.CM.PN ---
IMM 01/04/24, pt has been medically cleared for DC, she will transfer today to [facility] via [facility]
[2024-01-04 16:22] LABS: Glucose, Whole Blood 85 mg/dL (60-115)
[2024-01-04 20:23] LABS: Glucose, Whole Blood 187 mg/dL (60-115)
[2024-01-04] MEDS: clonazePAM 0.5 MG TABLET PO (20:23)
[2024-01-04] MEDS: Atorvastatin Calcium 10 MG TABLET PO (20:24)
[2024-01-06 16:13] LABS: Kappa, Serum 311 mg/dL (176-443); Kappa/Lambda Ratio, Serum 1.79 (1.29-2.55); Lambda, Serum 174 mg/dL (91-240)
== END 2024-01-04 20:45 | disposition skilled nursing facility (03) | DRG 871 ==
LOC: HO.ED 12-22 02:45 → HO.EDOVER 12-22 03:53 → HO.S3 12-22 19:12 → HO.IMC 12-27 09:30
PROVIDERS: Family Medicine; Admitting Provider Student in an Organized Health Care Education/Training Program; Emergency Provider Internal Medicine; PCP Internal Medicine; Visit Provider Hospitalist
DX: A41.51 Sepsis due to Escherichia coli [E. coli] (principal); G92.8 Other toxic encephalopathy; J69.0 Pneumonitis due to inhalation of food and vomit; N12 Tubulo-interstitial nephritis, not specified as acute or chronic; N17.9 Acute kidney failure, unspecified; N39.0 Urinary tract infection, site not specified; E83.42 Hypomagnesemia; E87.6 Hypokalemia; F39 Unspecified mood [affective] disorder; M54.9 Dorsalgia, unspecified; G89.29 Other chronic pain; T42.6X5A Adverse effect of other antiepileptic and sedative-hypnotic drugs, initial encounter; M19.032 Primary osteoarthritis, left wrist; G47.00 Insomnia, unspecified; E78.2 Mixed hyperlipidemia; I10 Essential (primary) hypertension; E11.65 Type 2 diabetes mellitus with hyperglycemia; Z20.822 Contact with and (suspected) exposure to COVID-19; Z79.4 Long term (current) use of insulin; Z79.84 Long term (current) use of oral hypoglycemic drugs; Z79.899 Other long term (current) drug therapy
CPT/HCPCS: 36415; 70450; 71045; 71046; 71275; 73110; 73130; 74176; 74177; 76705; 76775; 78306; 80048; 80053; 80076; 81001; 82784; 82947; 83605; 83615; 83690; 83735; 83883; 84132; 84145; 84443; 85007; 85025; 85027; 85379; 85652; 86140; 86334; 87040; 87077; 87086; 87088; 87186; 87205; 87633; 92526; 92610; 93971; 97116; 97163; 97166; 97530; 97535; 99285; A9569; J0295; J0696; J1170; J1200; J1650; J2405; J3475; J3480; Q9967

== ENCOUNTER → 2023-12-21 23:38 | Outpatient (BNV) | payer OTHER, SELFPAY | PROVIDERS: Emergency Provider Internal Medicine; PCP Internal Medicine; Visit Provider Student in an Organized Health Care Education/Training Program | DX: J69.0 Pneumonitis due to inhalation of food and vomit (principal); A41.9 Sepsis, unspecified organism; A41.50 Gram-negative sepsis, unspecified; N39.0 Urinary tract infection, site not specified | CPT/HCPCS: 99223; 99231; 99232; 99233; 99239; 99499 ==

== ENCOUNTER → 2023-12-22 02:23 | Outpatient (BNV) | payer MEDICARE, SELFPAY | PROVIDERS: Admitting Provider Student in an Organized Health Care Education/Training Program; Emergency Provider Internal Medicine; PCP Internal Medicine; Visit Provider Internal Medicine | DX: J69.0 Pneumonitis due to inhalation of food and vomit (principal); A41.50 Gram-negative sepsis, unspecified; N39.0 Urinary tract infection, site not specified | CPT/HCPCS: 99222; 99232 ==